=== PATIENT | female | born 1955 | race Caucasian/White ===

== ENCOUNTER 2016-11-17 06:25 | Inpatient (IN) | payer OTHER ==
[2016-11-16 11:35] VITALS: BMI 58.5
[~2016-11-17 06:25] MED LIST: BUPIVACAINE HCL/PF 0.5% (5MG/ML) 10 ML VIAL IJ ONE
[2016-11-17] MEDS ORDERED: MIDAZOLAM HCL 2 MG/2 ML SINGLE DOSE VIAL ONE (07:50)
[2016-11-17] MEDS ORDERED: PROPOFOL 20 ML ONE ×2 (07:50)
[2016-11-17] MEDS ORDERED: ROCURONIUM BROMIDE 50 MG/5 ML VIAL ONE ×2 (07:50→09:07)
[2016-11-17] MEDS ORDERED: BUPIVACAINE HCL/PF 0.5% (5MG/ML) 10 ML VIAL ONE (08:01)
[2016-11-17] MEDS ORDERED: DESFLURANE GAS 240 ML BOTTLE IH ONE (08:06)
[2016-11-17] MEDS ORDERED: LIDOCAINE HCL 2% (20ML MULTI-DOSE VIAL) NR ONE (08:06)
[2016-11-17] MEDS ORDERED: ceFAZolin SODIUM 1 GM VIAL IVPB ONE (08:40)
[2016-11-17] MEDS ORDERED: PHENYLEPHRINE HCL 10 MG/1 ML SINGLE DOSE VIAL ONE (09:23)
[2016-11-17] MEDS ORDERED: NEOSTIGMINE METHYLSULFATE 0.5 MG/ML - 10 ML MDV ONE (09:23)
[2016-11-17] MEDS ORDERED: ONDANSETRON 4 MG/2 ML VIAL IVPUSH PRN (09:46)
[2016-11-17] MEDS ORDERED: IBUPROFEN 800 MG/8 ML IJ IVPB PRN (09:46)
[2016-11-17] MEDS ORDERED: GLYCOPYRROLATE 0.2 MG/1 ML VIAL ONE (09:53)
[2016-11-17] MEDS ORDERED: LACTATED RINGERS SOLUTION 1,000 ML IV SCH (10:00)
[2016-11-17] MEDS ORDERED: BUPIVACAINE HCL/PF 0.5% (5MG/ML) 10 ML VIAL IJ ONE (10:03)
[2016-11-17] MEDS ORDERED: ONDANSETRON 4 MG/2 ML VIAL IVPB PRN (10:22)
[2016-11-17] MEDS ORDERED: METOCLOPRAMIDE HCL INJECTION 10 MG/2 ML VIAL IVPB PRN (10:25)
[2016-11-17] MEDS ORDERED: HYDROmorphone HCL CARPU-JECT 1 MG/1 ML DISP.SYRIN IVPB PRN (10:25)
[2016-11-17] MEDS ORDERED: SODIUM CHLORIDE 1,000 ML IV SCH ×2 (10:30→12:45)
[2016-11-17] MEDS ORDERED: HYDROmorphone HCL CARPU-JECT 2 MG/1 ML DISP.SYRIN ONE (10:52)
[2016-11-17] MEDS: HYDROmorphone HCL CARPU-JECT 1 MG/1 ML DISP.SYRIN IVPUSH PRN ×2 (10:52→11:02)
[2016-11-17 10:58] LABS: MCH 32.1 pg (25.7-33.7); MEAN CELL VOLUME 97.2 fl (80-96); MEAN PLT VOLUME 9.7 fl (7.5-11.1); PLATELET COUNT 163 K/MM3 (134-434); RDW 13.1 % (11.6-15.6); WHITE BLOOD COUNT 10.4 K/mm3 (4.0-10.0)
[2016-11-17] MEDS ORDERED: LABETALOL HCL 5 MG/1 ML (100MG/20 ML VIAL) IVPUSH ONE (11:28)
[2016-11-17 11:29] LABS: ALBUMIN 3.6 g/dl (3.4-5.0); ALK PHOS 78 U/L (45-117); ANION GAP 7 (8-16); BILIRUBIN,TOTAL 0.2 mg/dL (0.2-1.0); CALCIUM 8.6 mg/dL (8.5-10.1); CO2 28 mmol/L (21-32); CREATININE 1.4 mg/dL (0.55-1.02); GLUCOSE,RANDOM 146 mg/dL (74-106); SGOT/AST 22 U/L (15-37); SGPT/ALT 23 U/L (12-78); TOT PROT 7.2 g/dl (6.4-8.2)
[2016-11-17] MEDS: ACETAMINOPHEN 1000 MG/100 ML VIAL (NON FORMULARY) IVPB PRN ×2 (11:32→23:24)
--- NOTE | 2016-11-17 11:32 | OP ---
DATE OF OPERATION: 11/17/2016 PREOPERATIVE DIAGNOSES: 1. Morbid obesity. 2. Diabetes mellitus. 3. Hypertension. POSTOPERATIVE DIAGNOSES: 1. Morbid obesity. 2. Diabetes mellitus. 3. Hypertension. 4. Abdominal adhesions. PROCEDURE PERFORMED: 1. Laparoscopic vertical sleeve gastrectomy. 2. Laparoscopic lysis of adhesions. 3. Diagnostic laparoscopy. OPERATING SURGEON: Theodore Sterling M.D. BATTERY TECHNICIAN SURGEON: Dominguez Miller M.D. ANESTHESIA: General. OPERATIVE PROCEDURE: The patient was brought into the operating room, placed on the OR table in the supine position. All precautions were taken initially including padding for the back and the feet, and Venodyne boots were placed on both lower extremities. At that point the abdomen was prepped and draped in the usual manner. A Veress needle was placed in the left upper quadrant, and a pneumoperitoneum established. Number 12 bladeless trocar was placed in the left upper quadrant. Through that trocar, a laparoscopic camera was placed. Under direct vision, a number 15 bladeless trocar was placed in the midline in a supraumbilical position followed by a number 5 bladeless trocar in the right upper quadrant, and a number 5 bladeless trocar below the left costal margin. A Chris liver retractor was then placed in the epigastrium to retract left lobe of liver. Patient was then placed in 20-degree reverse Trendelenburg position. There were noted to be adhesions in the left upper quadrant up by the spleen between the omentum and the anterior abdominal wall. In order to provide visualization in this area to complete the sleeve, the adhesions were lysed. With the field technical assistant surgeon retracting the omentum inferiorly toward the patient's feet the operating surgeon used a LigaSure device to dissect the adhesions off the anterior abdominal wall. Once these were completed the left upper quadrant was now free of adhesions. The pylorus was noted on the distal stomach and 6 cm were measured proximally. Here on the greater curve the operating surgeon lifted the stomach toward the anterior abdominal wall as the field technical assistant surgeon retracted the gastrocolic ligament inferiorly. The LigaSure was now sued to dissect the vessels and the gastrocolic ligament off the greater curve of the stomach. This continued in a superior vertical direction until the final short gastric vessel between the proximal fundus and the superior pole of the spleen was divided. At this juncture anesthesia placed a No. 40 bougie. With the bougie held along the lesser curvature a series of bijal were performed with the 1st 2 bijal being black load bijal 6 cm in length along the bougie. This was followed by a series of purple load bijal along the bougie until the final staple was fired in the left upper quadrant and the greater curve was now completely detached from the lesser curve. It should be noted that prior to firing each staple both the anterior and posterior read were checked that they were equal and in the area of the esophagogastric junction approximately 1 to 1.5 cm serosa remained in the anterior and posterior surfaces. At this point saline placed along the staple line, anesthesia inserted air into the orogastric tube. The entire stomach was distended down to the pylorus, no obstruction, and no leaks were noted. At this point the bougie was removed by Anesthesia and the resected greater curve was removed thought the No. 15 trocar site and off the field as specimen. Under direct vision number 15 and 12 trocar sites were closed with endo closure device to prevent internal hernia and bleeding. Under direct visualization all trocars were removed and the pneumoperitoneum was released. All trocar sites then received 0.25% Marcaine and were closed with 4-0 Biosyn in subcuticular fashion. Dressings were applied. Patient awoken from anesthesia and transferred out of the operating room to recovery room in stable condition. ESTIMATED BLOOD LOSS: 30 mL. Ban [id number]
[2016-11-17] MEDS ORDERED: LABETALOL HCL 5 MG/1 ML (100MG/20 ML VIAL) IVPUSH PRN (11:52)
[2016-11-17] MEDS: ENOXAPARIN NA (PORCINE) 40 MG/0.4 ML DISP.SYRIN SQ SCH ×2 (14:34→21:06)
[2016-11-17] MEDS: FAMOTIDINE 20 MG/50 ML IVPB 50 ML IVPB SCH (21:06)
[2016-11-17] MEDS ORDERED: METOPROLOL TARTRATE 5 MG/5 ML VIAL ONE (23:10)
[2016-11-17] MEDS: METOPROLOL TARTRATE 5 MG/5 ML VIAL IVPB PRN (23:15)
[2016-11-17] MEDS ORDERED: DEXTROSE 5%-0.45% SALINE 1,000 ML IV SCH (23:30)
[2016-11-18] MEDS ORDERED: DEXTROSE 5%-0.45% SALINE 1,000 ML IV SCH (00:15)
[2016-11-18] MEDS ORDERED: PHENobarbital 30 MG TABLET PO SCH (00:17)
[2016-11-18] MEDS: PHENobarbital 30 MG TABLET PO SCH ×3 (00:41→21:53)
[2016-11-18] MEDS ORDERED: OXYCODONE/APAP 5/325MG COMBO TABLET PO PRN (06:41)
[2016-11-18 06:45] LABS: MCH 32.3 pg (25.7-33.7); MCHC 33.4 g/dl (32.0-36.0); MEAN CELL VOLUME 96.7 fl (80-96); MEAN PLT VOLUME 10.5 fl (7.5-11.1); PLATELET COUNT 143 K/MM3 (134-434); RDW 13.1 % (11.6-15.6); WHITE BLOOD COUNT 8.2 K/mm3 (4.0-10.0)
[2016-11-18] MEDS: diphenhydrAMINE HCL 25 MG CAPSULE (FP) PO PRN ×2 (06:45→21:52)
[2016-11-18] MEDS ORDERED: MEPERIDINE HCL 50 MG TABLET PO PRN (07:13)
[2016-11-18 07:21] LABS: ANION GAP 7 (8-16); BILIRUBIN,TOTAL 0.4 mg/dL (0.2-1.0); CALCIUM 7.8 mg/dL (8.5-10.1); CO2 27 mmol/L (21-32); CREATININE 1.4 mg/dL (0.55-1.02); GLUCOSE,RANDOM 154 mg/dL (74-106); SGOT/AST 21 U/L (15-37); SGPT/ALT 21 U/L (12-78); TOT PROT 6.5 g/dl (6.4-8.2)
[2016-11-18 07:22] LABS: ALK PHOS 71 U/L (45-117)
[2016-11-18] MEDS: METOPROLOL TARTRATE 5 MG/5 ML VIAL IVPB PRN (07:33)
[2016-11-18] MEDS ORDERED: amLODIPine BESYLATE 5 MG TABLET (FP) PO SCH (10:00)
--- NOTE | 2016-11-18 10:16 | PN ---
Progress Note (short form) - Note Progress Note: Anesthesiology Post-op POD#1 s/p laparoscopic gastric sleeve resection under GA. Pt. apparently with pruritis and erythema post-op presumed to be secondary to drug reaction. She is not SOB and while erythema is still present, treatment with Benadryl is helping. Otherwise, pain under control, VSS.
[2016-11-18] MEDS: ENOXAPARIN NA (PORCINE) 40 MG/0.4 ML DISP.SYRIN SQ SCH ×2 (10:28→21:52)
[2016-11-18] MEDS: FAMOTIDINE 20 MG/50 ML IVPB 50 ML IVPB SCH ×2 (10:28→21:52)
[2016-11-18] MEDS: METOPROLOL SUCCINATE 100 MG TAB.SR.24H (FP) PO SCH ×2 (10:28→21:52)
[2016-11-18] MEDS: LISINOPRIL 5 MG TABLET (FP) PO SCH (10:28)
[2016-11-18] MEDS ORDERED: amLODIPine BESYLATE 2.5 MG TABLET (FP) PO ONE (13:31)
--- NOTE | 2016-11-18 13:37 | CON.CARD ---
Consult Consult Specialty:: Cardiology Referred by:: Dr. Sterling Reason for Consultation:: HTN - History of Present Illness Chief Complaint: Elevated BP post op History of Present Illness: 61F HTN, HL, DM, cerebral aneurysm rupture 10 years ago complicated by prolonged hospitalization with ARF, temporary HD, seizures, CVA, chronic obesity now POD #1 gastric sleeve. Called to see for post op HTN: 180s/80s. She has received all of her usual BP meds. She is comfortable: denies headache, chest pain or SOB. Daughter at bedside, history obtained in Irish. Denies palpitations, lightheadedness or syncope. No dizziness. No neuro sx. She had been receiving Normal Saline, which was discontinued. 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: Yes: CVA, Seizure Cardio/Vascular: Yes: HTN, Hyperlipdemia ...: No Endocrine: Yes: Diabetes Mellitus, Other (obesity) Additional Medical History: cerebral aneursym rupture 10 years ago - Alcohol/Substance Use Hx Alcohol Use: No - Smoking History Smoking history: Never smoked Have you smoked in the past 12 months: No - Social History Usual Living Arrangement: With Child Home Medications - Allergies Allergies/Adverse Reactions: Allergies Allergy/AdvReac Type Severity Reaction Status Date / Time levetiracetam [From Keppra] Allergy Swelling Verified 11/16/16 11:35 morphine Allergy Itching Verified 11/17/16 07:18 hydromorphone HCl AdvReac Itching Verified 11/18/16 07:24 [From Dilaudid] - Home Medications Home Medications: Ambulatory Orders Amlodipine Besylate 5 mg PO DAILY 11/16/16 Glyburide 5 mg PO DAILY 11/16/16 Metoprolol Succinate [Toprol Xl] 100 mg PO BID 11/16/16 Atorvastatin Ca [Lipitor] 40 mg PO HS 11/17/16 Famotidine [Pepcid] 20 mg PO BID #60 tablet 11/17/16 Glipizide 5 mg PO DAILY 11/17/16 Lisinopril [Zestril] 5 mg PO DAILY 11/17/16 Phenobarbital 97.2 mg PO BID 11/17/16 Tramadol HCl 50 mg PO TID PRN #20 tablet MDD 4 11/17/16 Family Disease History - Family Disease History Family History: Unremarkable (non-contributory to this presentation) Review of Systems Findings/Remarks: 61F HTN, HL, DM, cerebral aneurysm rupture 10 years ago complicated by prolonged hospitalization with ARF, temporary HD, seizures, CVA, chronic obesity now POD #1 gastric sleeve. Called to see for post op HTN: 180s/80s. She has received all of her usual BP meds. She is comfortable: denies headache, chest pain or SOB. Daughter at bedside, history obtained in Irish. Denies palpitations, lightheadedness or syncope. No dizziness. No neuro sx. She had been receiving Normal Saline, which was discontinued. - Review of Systems Constitutional: reports: No Symptoms Eyes: reports: No Symptoms HENT: reports: No Symptoms Neck: reports: No Symptoms Cardiovascular: reports: No Symptoms Respiratory: reports: No Symptoms Gastrointestinal: reports: No Symptoms Genitourinary: reports: No Symptoms Breasts: reports: No Symptoms Reported Musculoskeletal: reports: No Symptoms Integumentary: reports: No Symptoms Neurological: reports: No Symptoms Endocrine: reports: No Symptoms Hematology/Lymphatic: reports: No Symptoms Psychiatric: reports: No Symptoms - Risk Factors Known Risk Factors: Yes: Diabetes Mellitus, Hypercholesterolemia, Hypertension Vital Signs: Vital Signs Temperature 99.7 F H 11/18/16 09:00 Pulse Rate 75 11/18/16 12:44 Respiratory Rate 16 11/18/16 12:44 Blood Pressure 180/85 11/18/16 12:44 O2 Sat by Pulse Oximetry (%) 97 11/18/16 10:00 Constitutional: Yes: Well Nourished, No Distress, Calm Eyes: Yes: Conjunctiva Clear, EOM Intact HENT: Yes: Atraumatic, Normocephalic Neck: Yes: Supple, Trachea Midline Respiratory: Yes: CTA Bilaterally Gastrointestinal: Yes: Soft, Abdomen, Obese Cardiovascular: Yes: Regular Rate and Rhythm JVD: No Carotid Bruit: No PMI: Non-Displaced Heart Sounds: Yes: S1, S2 (RRR, no murmurs) Edema: No Peripheral Pulses WNL: Yes Integumentary: Yes: WNL Neurological: Yes: Alert, Oriented ...Motor Strength: WNL Psychiatric: Yes: WNL, Alert - Other Data Labs, Other Data: CBC, BMP 11/18/16 05:35 11/18/16 06:00 Laboratory Tests 11/18/16 11/18/16 05:35 06:00 WBC 8.2 Hgb 13.0 Plt Count 143 Sodium 138 Potassium 4.3 BUN 26 H Creatinine 1.4 H Random Glucose 154 H Calcium 7.8 L AST 21 ALT 21 Alkaline Phosphatase 71 Total Protein 6.5 Albumin 3.0 L Echo: Report Reviewed, Other (Outside echo: trace MR, diastolic dysfx, otherwise normal EF) Stress Echo: Report Reviewed, Other (Persantine MIBI: 04/29--- no ischemia, soft tissue attenuation, EF 63%) Ejection Fraction %: LVEF > or = 40 % Imaging - Results Chest X-ray: Report Reviewed EKG: Image Reviewed (TELE: NSR with IVCD, RBBB (chronic)), Other (chronic RBBB) Problem List - Problems (1) Hypertension Code(s): I10 - ESSENTIAL (PRIMARY) HYPERTENSION Qualifiers: Hypertension type: essential hypertension Qualified Code(s): I10 - Essential (primary) hypertension (2) Morbid (severe) obesity due to excess calories Code(s): E66.01 - MORBID (SEVERE) OBESITY DUE TO EXCESS CALORIES (3) Diabetes Code(s): E11.9 - TYPE 2 DIABETES MELLITUS WITHOUT COMPLICATIONS Qualifiers: Diabetes mellitus type: type 2 Chronic kidney disease stage: stage 1 (4) Hyperlipidemia Code(s): E78.5 - HYPERLIPIDEMIA, UNSPECIFIED Qualifiers: Hyperlipidemia type: mixed hyperlipidemia Qualified Code(s): E78.2 - Mixed hyperlipidemia (5) Bariatric surgery status Code(s): Z98.84 - BARIATRIC SURGERY STATUS Assessment/Plan IMP: Chronic HTN, mild to moderately elevated post-op: possibly due to combined effect of mild post op pain and infusion of saline Asymptomatic History of DM, obesity and cerebral aneurysm rupture many years ago. REC: Agree with d/c IVF with careful monitoring of BP. Will give extra small dose of amlodipine x1 and observe BP trend. May need to up-titrate standing dose pending clinical response. Dr. uFentes will follow in AM.
--- NOTE | 2016-11-18 13:38 | PATH ---
Surgical Pathology Report Patient Name: SHNO REYES [facility]. Rec. #: [id number] /Age/Gender: 1955 (Age: 61) / F Account: [id number] Location: 4 PEDS/ADOL Taken: 11/17/2016 Received: 11/17/2016 Reported: 11/18/2016 Physicians: Theodore Sterling M.D. Specimen(s) Received GREATER CURVATURE OF STOMACH Clinical History Morbid obesity Final Diagnosis STOMACH, GREATER CURVATURE, LAPAROSCOPIC VERTICAL SLEEVE GASTRECTOMY: PORTION OF STOMACH WITH MILD CHRONIC GASTRITIS. IMMUNOSTAIN FOR H. PYLORI IS NEGATIVE FOR ORGANISMS. Electronically Signed Kwame Morrell M.D. Gross Description Received in formalin, labeled "greater curvature of stomach" is a 88 gram, 15.0 x 4.8 x 3.0 cm portion of stomach with a stapled margin of resection. The serosa is carbajal-knapp with minimal attached fat. The mucosa is carbajal-pink with focally flattened folds. No mucosal masses are identified. Medical Records Auditor sections are submitted in one cassette. /11/17/2016 [facility]11/17/2016
--- NOTE | 2016-11-18 16:44 | PN ---
Progress Note (short form) - Note Progress Note: POD#1 Cardiology consult appreciated Afebrile P-75-103 BP- 160-180/80-90 Pt migdalia po clear liquids-2 oz po tid Ambulating-oob ok UGI-no leak no obstruction WBC-8.2 (decreased from 10.4) H/H-/ P- cont ambulation, incentive spirometer cont DVT prophylaxis cont po clear liquids- 2 oz po TID
[2016-11-18] MEDS ORDERED: hydrALAZINE HCL 20 MG/ML VIAL IVPB PRN (19:02)
[2016-11-18] MEDS ORDERED: LISINOPRIL 5 MG TABLET (FP) PO ONE (19:15)
[2016-11-19] MEDS ORDERED: diphenhydrAMINE HCL 25 MG CAPSULE (FP) PO PRN (03:34)
--- NOTE | 2016-11-19 08:05 | PN ---
Progress Note, Physician History of Present Illness: [facility]. no overnight events. no new complaints. mild abdominal discomfort. - Current Medication List Current Medications: Active Medications Amlodipine Besylate (Norvasc -) 5 mg PO DAILY [facility] Last Admin: 11/18/16 10:28 Dose: 5 mg Diphenhydramine HCl (Benadryl -) 25 mg PO Q6H PRN PRN Reason: Itchiness Enoxaparin Sodium (Lovenox -) 40 mg SQ BID [facility] Last Admin: 11/18/16 21:52 Dose: 40 mg Hydralazine HCl (Apresoline Injection -) 10 mg IVPB Q4H PRN PRN Reason: FOR SBP > 170 Last Admin: 11/19/16 06:18 Dose: 10 mg Famotidine/Sodium Chloride (Pepcid 20 Mg Premixed Ivpb -) 50 mls @ 100 mls/hr IVPB BID [facility] Last Admin: 11/18/16 21:52 Dose: 100 mls/hr Ibuprofen (Caldolor Injection -) 800 mg IVPB Q6H PRN PRN Reason: PAIN Last Admin: 11/17/16 11:45 Dose: 800 mg Lisinopril (Prinivil) 5 mg PO DAILY [facility] Last Admin: 11/18/16 10:28 Dose: 5 mg Meperidine HCl (Demerol -) 25 mg PO Q4H PRN PRN Reason: PAIN Metoclopramide HCl (Reglan Injection -) 10 mg IVPB Q6H PRN PRN Reason: NAUSEA AND/OR VOMITING Last Admin: 11/17/16 22:00 Dose: 10 mg Metoprolol Succinate (Toprol Xl -) 100 mg PO BID [facility] Last Admin: 11/18/16 21:52 Dose: 100 mg Ondansetron HCl (Zofran Injection) 4 mg IVPB Q4H PRN PRN Reason: NAUSEA AND/OR VOMITING Phenobarbital (Phenobarbital -) 90 mg PO BID [facility] Last Admin: 11/18/16 21:53 Dose: 90 mg - Objective Vital Signs: Vital Signs Temperature 98.7 F 11/19/16 06:00 Pulse Rate 93 H 11/19/16 06:00 Respiratory Rate 20 11/19/16 06:00 Blood Pressure 175/80 11/19/16 06:00 O2 Sat by Pulse Oximetry (%) 95 11/18/16 21:00 Constitutional: Yes: No Distress, Calm, Obese Eyes: Yes: Conjunctiva Clear, EOM Intact, PERRL HENT: Yes: Atraumatic, Normocephalic Neck: Yes: Supple, Trachea Midline Cardiovascular: Yes: Regular Rate and Rhythm, Murmur, S1, S2. No: Bradycardia, Tachycardia, Pulse Irregular, Bruit, JVD, Gallop, Rub, S3, S4, Varicosities Respiratory: Yes: Regular, CTA Bilaterally. No: Rales, Rhonchi, Wheezes Gastrointestinal: Yes: Normal Bowel Sounds, Soft, Tenderness. No: Distention Musculoskeletal: Yes: WNL Extremities: Yes: WNL Edema: No Peripheral Pulses WNL: Yes Peripheral Pulses: Left Doralis Pedis: 2+, Right Dorsalis Pedis: 2+ Integumentary: Yes: WNL Neurological: Yes: Alert, Oriented, Cran Nerves II-XII Intact Psychiatric: Yes: Alert, Oriented Labs: CBC, BMP 11/18/16 05:35 11/18/16 06:00 - ....Imaging Chest X-ray: Report Reviewed, Image Reviewed EKG: Report Reviewed, Image Reviewed Other: Report Reviewed, Image Reviewed (tele-nsr, sinus tach, no sig arrhythmias recorded) Assessment/Plan 60 year old woman with the history of hypertension, hyperlipidemia, diabetes type II, cerebral aneurysm with rupture 10 years ago with prolonged hospital stay, complicated by acute renal failure and temporary hemodialysis followed by seizures, mild CVA, and obesity now post op from bariatric surgery which she tolerated well but with mild to moderately uncontrolled HTN post op. Perioperative cardiac risk assessment -pt tolerated procedure well from a cardiac standpoint -no additional inpatient cardiac work up needed Outpatient preop work up in the office included: Echo 04/15/16-normal LV and RV function, mild MR Carotid doppler 04/15/16-mild plaque, no stenosis Nuclear stress test 04/15/16-no ischemia, normal LVEF HTN-above goal, was slightly above retirement goal on preop outpatient visit but adequate prior to surgery here, now likely exacerbated by post op discomfort and IVF, with h/o ruptured cerebral aneursym HTN control is essential -pt required 1 dose of IV Hydralazine overnight for SBP >170, this am BP improved but still above goal -cont metoprolol 100mg bid -change amlodipine to nifedipine er 60mg daily and uptitrate as needed -ideally would uptitrate Lisinopril (given h/o DMII) and possibly add HCTZ but due to elevated creatinine will wait to confirm baseline creat, this can be done as outpatient -re-evaluate BP this am after meds, if adequately controlled, pt would be acceptable for discharge from a cardiac standpoint with a plan for close outpatient follow up this week DMII -outpatient f/up with PMD Cerebral aneursym with rupture -outpatient f/up with PMD
[2016-11-19] MEDS: FAMOTIDINE 20 MG/50 ML IVPB 50 ML IVPB SCH (09:14)
[2016-11-19] MEDS: PHENobarbital 30 MG TABLET PO SCH (09:14)
[2016-11-19] MEDS: LISINOPRIL 5 MG TABLET (FP) PO SCH (09:14)
[2016-11-19] MEDS: ENOXAPARIN NA (PORCINE) 40 MG/0.4 ML DISP.SYRIN SQ SCH (09:14)
[2016-11-19] MEDS: METOPROLOL SUCCINATE 100 MG TAB.SR.24H (FP) PO SCH (09:14)
[2016-11-19] MEDS ORDERED: NIFEdipine E.R 60 MG TABLET (UD) PO SCH (10:00)
[2016-11-19 11:36] VITALS: BP 153/76; PULSE 94; TEMP 99.8
--- NOTE | 2016-11-19 12:49 | PN ---
Progress Note (short form) - Note Progress Note: Afebrile today T(max)- 100.1 degrees P-94 BP-153/76 (stable since 8 AM; decreased from previously) Pt doing well Tolerating PO clear liquids- 2 oz po TID P/E- Abd- well-healed incisions soft, non-tender on palpation Cardiology note appreciated- Discussed with Dr Fuentes BP now better controlled and OK for D/C Dr Fuentes will e-prescribe Nifedipine to pharmacy Discussed post-op instructions with daughter via face-time with patient Pt to F/U with Cardiology on 11/21 or 11/22 Pt to F/U with Bariatrics on 11/24 P- PO clear liquids- 3 OZ PO 4-5 times per day Pt can have 1 cup of water Q 1-2 H F/U with Card 11/21 or 11/22 F/U with Bariatric 11/24 D/C pt home today
== END 2016-11-19 14:32 | disposition home or self-care (01) | DRG 403 ==
LOC: JSAMEDAYSX 06:25 → EDSTATUS 08:00 → J4S 12:59
PROVIDERS: ADMIT Surgery; ATTEND Surgery
PROC: 0JN83ZZ Release Abdomen Subcutaneous Tissue and Fascia, Percutaneous Approach (ICD-10-PCS; 2016-11-17)
PROC: 0DB64Z3 Excision of Stomach, Percutaneous Endoscopic Approach, Vertical (ICD-10-PCS; principal; 2016-11-17 08:00)
DX: E66.01 Morbid (severe) obesity due to excess calories (principal); Z68.43 Body mass index [BMI] 50.0-59.9, adult; K66.0 Peritoneal adhesions (postprocedural) (postinfection); I10 Essential (primary) hypertension; E11.9 Type 2 diabetes mellitus without complications; E78.5 Hyperlipidemia, unspecified; K29.50 Unspecified chronic gastritis without bleeding; I97.3 Postprocedural hypertension; L29.9 Pruritus, unspecified
CPT/HCPCS: 36415; 74241-TC; 80053; 85027; 86850; 86900; 86901; 88305-TC; 94760; 97116-GP; 97162-GP

== ENCOUNTER 2017-09-17 19:09 | Inpatient (IN) | payer OTHER ==
--- NOTE | 2017-09-17 19:55 | PDOC ---
History of Present Illness - General Chief Complaint: Nausea/Vomiting Stated Complaint: NAUSEA/VOMITTING Time Seen by Provider: 09/17/17 19:54 - History of Present Illness Initial Comments: 61F HTN, HL, DM, urinary incontinence, cerebral aneurysm rupture 10 years ago complicated by prolonged hospitalization with ARF, temporary HD, seizures, CVA, and severe obesity (10 months s/p gastric sleeve) presenting with 5 episodes of non-bloody, bilious nausea/ vomiting and lightheadedness. States she ate a slice of pizza and drank some coffee a few hours before the nausea/ vomiting. Passing gas today, had a small soft bowel movement yesterday. Denies fevers, chills, abdominal pain. 09/17/17 20:03 Past History - Past Medical History Allergies/Adverse Reactions: Allergies Allergy/AdvReac Type Severity Reaction Status Date / Time levetiracetam [From Keppra] Allergy Swelling Verified 09/17/17 19:53 morphine Allergy Itching Verified 09/17/17 19:53 hydromorphone HCl AdvReac Itching Verified 09/17/17 19:53 [From Dilaudid] Home Medications: Ambulatory Orders Amlodipine Besylate 5 mg PO DAILY 11/16/16 Metoprolol Succinate [Toprol Xl] 100 mg PO BID 11/16/16 Atorvastatin Ca [Lipitor] 40 mg PO HS 11/17/16 Famotidine [Pepcid] 20 mg PO BID #60 tablet 11/17/16 Glipizide 5 mg PO DAILY 11/17/16 Lisinopril [Zestril] 5 mg PO DAILY 11/17/16 Phenobarbital 97.2 mg PO BID 11/17/16 Gabapentin [Neurontin -] 300 mg PO Q8H 09/17/17 Anemia: No Asthma: Yes Cancer: No Cardiac Disorders: No CVA: No COPD: No CHF: No Dementia: No Diabetes: Yes GI Disorders: No Disorders: No HTN: Yes Hypercholesterolemia: No Liver Disease: No Seizures: Yes Thyroid Disease: No - Surgical History Abdominal Surgery: No Cardiac Surgery: No Cholecystectomy: Yes Lung Surgery: No Neurologic Surgery: No Orthopedic Surgery: No - Suicide/Smoking/Psychosocial Hx Smoking History: Never smoked Have you smoked in the past 12 months: No Information on smoking cessation initiated: No Hx Alcohol Use: No Drug/Substance Use Hx: No Substance Use Type: None Hx Substance Use Treatment: No Review of Systems - Review of Systems Constitutional: Yes: Loss of Appetite. No: Chills, Diaphoresis, Fever HEENTM: No: Blurred Vision, Tearing Respiratory: No: Cough, Orthopnea, Shortness of Breath Cardiac (ROS): No: Chest Pain, Edema, Irregular Heart Rate ABD/GI: Yes: Nausea, Poor Appetite, Vomiting : No: Dysuria, Discharge, Frequency Musculoskeletal: No: Back Pain, Muscle Weakness Integumentary: No: Bruising, Lesions, Lumps Neurological: No: Headache, Numbness, Paresthesia, Tingling *Physical Exam - Vital Signs Last Vital Signs Temp Pulse Resp BP Pulse Ox 96.1 F L 65 16 141/98 96 09/17/17 19:46 09/17/17 19:46 09/17/17 19:46 09/17/17 19:46 09/17/17 19:46 - Physical Exam General Appearance: Yes: Nourished, Appropriately Dressed. No: Apparent Distress HEENT: positive: EOMI, GUILLERMO, Normal ENT Inspection, Normal Voice Neck: positive: Trachea midline, Normal Thyroid, Supple. negative: Tender, Rigid Respiratory/Chest: positive: Lungs Clear, Normal Breath Sounds. negative: Chest Tender, Respiratory Distress, Accessory Muscle Use Cardiovascular: positive: Regular Rhythm, Regular Rate Gastrointestinal/Abdominal: positive: Increased Bowel Sounds Musculoskeletal: negative: Normal Inspection (globally weak), Decreased Range of Motion Extremity: positive: Normal Capillary Refill, Normal Inspection, Normal Range of Motion. negative: Tender Integumentary: positive: Normal Color, Dry, Warm Neurologic: positive: Fully Oriented, Alert (alert but occasionally tunes out of conversation), Normal Mood/Affect, Normal Response, Motor Strength 5/5 Heart Score/ECG Review - History History: Highly suspicious - Electrocardiogram EKG: Non specific repolarization disturbance - Age Age: 45-65 - Risk Factors Risk Factors Heart Score: Yes Hx Hypertension, Yes Hx Diabetes, Yes Hx Obesity Based on the list above the patient has:: >/=3 risk factors or Hx atherosclerotic disease - Troponin Troponin: </= normal limit - Score Heart Score - Total: 6 ED Treatment Course - LABORATORY CBC & Chemistry Diagram: 09/17/17 21:00 09/17/17 21:00 Medical Decision Making - Medical Decision Making 62 year old female with multiple cardiac risk factors presenting with nausea, vomiting, and abdominal discomfort of sudden onset. Given two IV Zofran without relief of her symptoms. CK and Alk phos slightly elevated with a normal RUQ US. Unclear source for N/V but patient's cardiac risk factors. female sex, and diabetes put her at risk for atypical cardiac presentations. Will admit patient for cardiac tele obs and eval by Dr. Miller. 09/18/17 01:25 *DC/Admit/Observation/Transfer Diagnosis at time of Disposition: Anginal equivalent - Discharge Dispostion Condition at time of disposition: Stable Admit: Yes - Referrals Referrals: José Oliver MD [Primary Care Provider] - - Patient Instructions - Post Discharge Activity
--- NOTE | 2017-09-17 20:43 | PDOC ---
Attending Attestation - Resident Resident Name: Grace Khalil - ED Attending Attestation I have performed the following: I have examined & evaluated the patient, The case was reviewed & discussed with the resident, I agree w/resident's findings & plan - HPI HPI: 09/17/17 20:43 Pt comes with abd pain, nausea and vomiting. States that she ate pizza today. SHe usually eats rice and chicken and veggies at home. Pt has no fever and no point tenderness in her abd. Just general nausea and vomiting. She has a hx of GB removal and gastric sleeve. She has DM and HTN. SHe is overweight. Pt appears pale and weak. She has a hx of a CVA in the past. SHe cannot tell us much about it. 09/17/17 22:39 Labs are normal. Alk phos is elevated. Pt will have a sono. We will also add on a cardiac enzyme on the patient. - Physicial Exam PE: 09/17/17 20:43 Agree with resident exam - Medical Decision Making 09/18/17 00:30 Pt has normal labs and normal UA. She is acetone negative. She appears weak and pale. She is awaiting sonogram of the RUQ, as she has elevated alk phos. Pt hada cholecystectomy 3 yrs ago and she may have choledocholithiasis. 09/18/17 01:02 Referring Physician: NEERU HEATON Patient Name: ANTONIO BATRES THIS IS A PRELIMINARY REPORT FROM [facility] DATE OF SERVICE: 2017-09-18 00:14:25 IMAGES: 35 EXAM: ULTRASOUND ABDOMEN INCOMPLETE Cholecystectomy. Unremarkable liver, right kidney and visualized aorta and pancreas. Normal common duct diameter, 7 mm. THIS DOCUMENT HAS BEEN ELECTRONICALLY SIGNED 09/18/17 02:04 Pt will be admitted to telemetry observation for serial cardiac marker observation
[2017-09-17] MEDS ORDERED: SODIUM CHLORIDE 0.9% 500 ML INFUS.BAG IV ONE (20:46)
[2017-09-17] MEDS ORDERED: ONDANSETRON 4 MG/2 ML VIAL IVPUSH ONE (20:46)
[2017-09-17] MEDS ORDERED: ONDANSETRON 4 MG/2 ML VIAL ONE (21:12)
[2017-09-17 21:31] LABS: BASO % 0.5 % (0-2.0); HEMATOCRIT 34.9 % (32.4-45.2); HEMOGLOBIN 11.5 GM/dL (10.7-15.3); LYMPH % 30.8 % (8-40); MCH 24.7 pg (25.7-33.7); MCHC 32.9 g/dl (32.0-36.0); MEAN PLT VOLUME 8.2 fl (7.5-11.1); MONO % 9.4 % (3.8-10.2); NEUT % 57.3 % (42.8-82.8); PLATELET COUNT 327 K/MM3 (134-434); RBC 4.66 M/mm3 (3.60-5.2); RDW 14.9 % (11.6-15.6); WHITE BLOOD COUNT 9.6 K/mm3 (4.0-10.0)
[2017-09-17 21:59] LABS: ALBUMIN 3.4 g/dl (3.4-5.0); ALK PHOS 259 U/L (45-117); ANION GAP 6 (8-16); BILIRUBIN,DIRECT < 0.2 mg/dL (0.0-0.2); BILIRUBIN,TOTAL 0.3 mg/dL (0.2-1.0); BLOOD UREA NITROGEN 8 mg/dL (7-18); CALCIUM 8.6 mg/dL (8.5-10.1); CHLORIDE 109 mmol/L (98-107); CO2 26 mmol/L (21-32); CREATININE 0.6 mg/dL (0.55-1.02); GLUCOSE,RANDOM 89 mg/dL (74-106); LIPASE 84 U/L (73-393); SGOT/AST 15 U/L (15-37); SGPT/ALT 23 U/L (12-78); SODIUM 141 mmol/L (136-145); TOT PROT 6.8 g/dl (6.4-8.2)
[2017-09-17 23:04] LABS: URINE APPEARANCE CLEAR; URINE BILIRUBIN NEGATIVE (<2.0 mg/dL); URINE COLOR COLORLESS; URINE GLUCOSE (UA) 1+ (NEGATIVE); URINE KETONE NEGATIVE (NEGATIVE); URINE LEUK ESTERASE NEGATIVE (NEGATIVE); URINE NITRITE NEGATIVE (NEGATIVE); URINE UROBILINOGEN NEGATIVE mg/dL (0.2-1.0)
[2017-09-17 23:08] LABS: URINE PROTEIN 2+ (NEGATIVE)
[2017-09-17 23:09] LABS: URINE MUCUS RARE
[2017-09-18] MEDS ORDERED: SODIUM CHLORIDE 0.9% 500 ML INFUS.BAG IV ONE (01:12)
[2017-09-18] MEDS ORDERED: ONDANSETRON 4 MG/2 ML VIAL IVPUSH ONE (01:12)
[2017-09-18] MEDS ORDERED: ONDANSETRON 4 MG/2 ML VIAL ONE (01:14)
[2017-09-18] MEDS ORDERED: ASPIRIN 81 MG CHEWABLE TABLETS PO ONE (01:15)
[2017-09-18] MEDS ORDERED: ASPIRIN 81 MG CHEWABLE TABLETS ONE (01:16)
--- NOTE | 2017-09-18 01:32 | PN ---
Teaching Attending Note Name of Resident: Tawnya Fuller ATTENDING PHYSICIAN STATEMENT I saw and evaluated the patient. I reviewed the resident's note and discussed the case with the resident. I agree with the resident's findings and plan as documented. SUBJECTIVE: 62 yo DM, HTN, morbid obesity, GB removal, gastric sleeve, who presents with nausea and vomiting after pizza. No chest pain or pressure. No shortness of breath. States she has No abdominal pain and nausea/vomiting has completely resolved. Denies any current dizziness, headache, or visual changes. No chest pain or pressure. No fevers or chills. OBJECTIVE: Physical: VS: Vital Signs Period Temp Pulse Resp BP Sys/Smith Pulse Ox Last 24 Hr 96.1 F 65 16 141/98 96 GEN: NAD, Resting in bed, AA0X3 HEENT: NCAT, PERRL, Throat without erythema or exudates CARD: RRR S1, S2 RESP: CTAB ABD: BSX4,NTD to palpation EXT: - C/C/E Neuro: CN II-XII intact, Motor MS +5/5 Bilateral UE/LE CBCD WBC 9.6 K/mm3 (4.0-10.0) 09/17/17 21:00 RBC 4.66 M/mm3 (3.60-5.2) 09/17/17 21:00 Hgb 11.5 GM/dL (10.7-15.3) D 09/17/17 21:00 Hct 34.9 % (32.4-45.2) 09/17/17 21:00 MCV 75.0 fl (80-96) L 09/17/17 21:00 MCHC 32.9 g/dl (32.0-36.0) 09/17/17 21:00 RDW 14.9 % (11.6-15.6) D 09/17/17 21:00 Plt Count 327 K/MM3 (134-434) D 09/17/17 21:00 MPV 8.2 fl (7.5-11.1) D 09/17/17 21:00 CMP Sodium 141 mmol/L (136-145) 09/17/17 21:00 Potassium 4.0 mmol/L (3.5-5.1) 09/17/17 21:00 Chloride 109 mmol/L (98-107) H 09/17/17 21:00 Carbon Dioxide 26 mmol/L (21-32) 09/17/17 21:00 Anion Gap 6 (8-16) L 09/17/17 21:00 BUN 8 mg/dL (7-18) 09/17/17 21:00 Creatinine 0.6 mg/dL (0.55-1.02) 09/17/17 21:00 Creat Clearance w eGFR > 60 (>60) 09/17/17 21:00 Random Glucose 89 mg/dL (74-106) 09/17/17 21:00 Calcium 8.6 mg/dL (8.5-10.1) 09/17/17 21:00 Total Bilirubin 0.3 mg/dL (0.2-1.0) D 09/17/17 21:00 AST 15 U/L (15-37) 09/17/17 21:00 ALT 23 U/L (12-78) 09/17/17 21:00 Alkaline Phosphatase 259 U/L (45-117) H 09/17/17 21:00 Total Protein 6.8 g/dl (6.4-8.2) 09/17/17 21:00 Albumin 3.4 g/dl (3.4-5.0) 09/17/17 21:00 CARDIAC ENZYMES Creatine Kinase 321 IU/L (26-192) H 09/17/17 22:35 Troponin I < 0.02 ng/ml (0.00-0.05) 09/17/17 22:35 Home Medications Medication Instructions Recorded Amlodipine Besylate 5 mg PO DAILY 11/16/16 Metoprolol Succinate [Toprol Xl] 100 mg PO BID 11/16/16 Atorvastatin Ca [Lipitor] 40 mg PO HS 11/17/16 Famotidine [Pepcid] 20 mg PO BID #60 tablet 11/17/16 Glipizide 5 mg PO DAILY 11/17/16 Lisinopril [Zestril] 5 mg PO DAILY 11/17/16 Phenobarbital 97.2 mg PO BID 11/17/16 Gabapentin [Neurontin -] 300 mg PO Q8H 09/17/17 Ambulatory Orders Amlodipine Besylate 5 mg PO DAILY 11/16/16 Metoprolol Succinate [Toprol Xl] 100 mg PO BID 11/16/16 Atorvastatin Ca [Lipitor] 40 mg PO HS 11/17/16 Famotidine [Pepcid] 20 mg PO BID #60 tablet 11/17/16 Glipizide 5 mg PO DAILY 11/17/16 Lisinopril [Zestril] 5 mg PO DAILY 11/17/16 Phenobarbital 97.2 mg PO BID 11/17/16 Gabapentin [Neurontin -] 300 mg PO Q8H 09/17/17 CXR: PENDING EKG: NSR, RBBB, TWI inferior leads, QtC 534 ABD US: Negative for acute process HEART 3 ASSESSMENT AND PLAN: 62 yo DM, HTN, morbid obesity, GB removal, gastric sleeve, who presents with nausea and vomiting, being admitted for atypical chest pain 1.) Atypical Chest Pain/Nausea - Trend Trop/EKG - Avoid Zofran/Reglan due to prolonged QtC - Nausea/Vomiting resolved- Tolerating PO 2.) Prolonged QtC - Electrolytes - Keep Mg2+>2, K >4.0 - Avoid Qt Prolonging agents/meds 3.) HTN - C/W Home meds (Amlodipine, BB, Macario) 4.) Hx. of Cerebral Aneurysm Rupture - Denies any headache/visual changes - Monitor - C/W Home Meds - C/W BP meds 5.) Dvt PPx - SCDs Place in Obs-Tele
--- NOTE | 2017-09-18 02:33 | HP ---
CHIEF COMPLAINT: nausea and dizziness HISTORY OF PRESENT ILLNESS: Patient is a 62 yo F with a PMHx of HTn, HLD, CVA, Seizures, s/p cholecystectomy, s/p gastric sleeve, presents with dizziness and nausea/vomiting that started at 5pm yesterday. Patient said she ate Pizza earlier that day. She said she vomited 3 times and couldn't describe the vomit. Patient denies chest pain, abdominal pain, chest pain, sob, loc, vision loss, dysuria, headaches. ER course was notable for: (1) EKG: NSR, RBBB, TWI inferior leads, QtC 534 (2) ABD US: Negative for acute process, Alk Phos: 259 (3) QTC 534 Recent Travel: denies PAST MEDICAL HISTORY: HTN, HL, DM, urinary incontinence, cerebral aneurysm rupture 10 years ago complicated by prolonged hospitalization with ARF, temporary HD, seizures, CVA, and severe obesity (10 months s/p gastric sleeve) Social History: Smoking: denies Alcohol: denies Drugs: denies Family History: Allergies levetiracetam [From Keppra] Allergy (Verified 09/17/17 19:53) Swelling morphine Allergy (Verified 09/17/17 19:53) Itching severe itching s/p several sx for 2-3 days hydromorphone HCl [From Dilaudid] Adverse Reaction (Verified 09/17/17 19:53) Itching 11/18/16 SUSPECTED ADR TO DILAUDID. RX: MILD: ERYTHEMA AND ITCHING HOME MEDICATIONS: Home Medications Medication Instructions Recorded Amlodipine Besylate 5 mg PO DAILY 11/16/16 Metoprolol Succinate [Toprol Xl] 100 mg PO BID 11/16/16 Atorvastatin Ca [Lipitor] 40 mg PO HS 11/17/16 Famotidine [Pepcid] 20 mg PO BID #60 tablet 11/17/16 Glipizide 5 mg PO DAILY 11/17/16 Lisinopril [Zestril] 5 mg PO DAILY 11/17/16 Phenobarbital 97.2 mg PO BID 11/17/16 Gabapentin [Neurontin -] 300 mg PO Q8H 09/17/17 REVIEW OF SYSTEMS CONSTITUTIONAL: Absent: fever, chills, diaphoresis, generalized weakness, malaise, loss of appetite, weight change HEENT: Absent: rhinorrhea, nasal congestion, throat pain, throat swelling, difficulty swallowing, mouth swelling, ear pain, eye pain, visual changes CARDIOVASCULAR: Absent: chest pain, syncope, palpitations, irregular heart rate, lightheadedness , peripheral edema RESPIRATORY: Absent: cough, shortness of breath, dyspnea with exertion, orthopnea, wheezing, stridor, hemoptysis GASTROINTESTINAL: nausea, vomiting Absent: abdominal pain, abdominal distension, diarrhea, constipation, melena, hematochezia GENITOURINARY: Absent: dysuria, frequency, urgency, hesitancy, hematuria, flank pain, genital pain ENDOCRINE: Absent: unexplained weight gain, unexplained weight loss, heat intolerance, cold intolerance NEUROLOGIC: Absent: headache, focal weakness or paresthesias, dizziness, unsteady gait, seizure, mental status changes, bladder or bowel incontinence PHYSICAL EXAMINATION Vital Signs - 24 hr 09/17/17 19:46 Temperature 96.1 F L Pulse Rate 65 Respiratory 16 Rate Blood Pressure 141/98 O2 Sat by Pulse 96 Oximetry (%) GENERAL: a/o x 3, comfortable, nad EYES: Pupils equal, round and reactive to light, extraocular movements intact, sclera anicteric, conjunctiva clear. EARS, NOSE, THROAT: oropharynx clear without exudates. Moist mucous membranes. NECK:supple without lymphadenopathy, JVD, or masses. LUNGS: Breath sounds equal, clear to auscultation bilaterally. No wheezes, and no crackles. HEART: Regular rate and rhythm, normal S1 and S2 without murmur, rub or gallop. ABDOMEN: obese, Soft, nontender, not distended, normoactive bowel sounds, no guarding, no rebound, no masses. UPPER EXTREMITIES: 2+ pulses, warm, well-perfused. No cyanosis. No clubbing. No peripheral edema. LOWER EXTREMITIES: 2+ pulses, warm, well-perfused. No calf tenderness. No peripheral edema. NEUROLOGICAL: Cranial nerves II-XII intact. Normal speech. Laboratory Results - last 24 hr 09/17/17 09/17/17 09/17/17 21:00 21:00 21:30 WBC 9.6 RBC 4.66 Hgb 11.5 D Hct 34.9 MCV 75.0 L MCH 24.7 L MCHC 32.9 RDW 14.9 D Plt Count 327 D MPV 8.2 D Neutrophils % 57.3 Lymphocytes % 30.8 Monocytes % 9.4 Eosinophils % 2.0 Basophils % 0.5 Sodium 141 Potassium 4.0 Chloride 109 H Carbon Dioxide 26 Anion Gap 6 L BUN 8 Creatinine 0.6 Creat Clearance w eGFR > 60 Random Glucose 89 Calcium 8.6 Total Bilirubin 0.3 D Direct Bilirubin < 0.2 AST 15 ALT 23 Alkaline Phosphatase 259 H Creatine Kinase Creatine Kinase Index CK-MB (CK-2) Troponin I Total Protein 6.8 Albumin 3.4 Lipase 84 Urine Color Urine Appearance Urine pH Ur Specific [place] Urine Protein Urine Glucose (UA) Urine Ketones Urine Blood Urine Nitrite Urine Bilirubin Urine Urobilinogen Ur Leukocyte Esterase Urine WBC (Auto) Urine RBC (Auto) Urine Mucus Acetone, Qual Negative L 09/17/17 09/17/17 22:35 22:45 WBC RBC Hgb Hct MCV MCH MCHC RDW Plt Count MPV Neutrophils % Lymphocytes % Monocytes % Eosinophils % Basophils % Sodium Potassium Chloride Carbon Dioxide Anion Gap BUN Creatinine Creat Clearance w eGFR Random Glucose Calcium Total Bilirubin Direct Bilirubin AST ALT Alkaline Phosphatase Creatine Kinase 321 H Creatine Kinase Index 2.3 CK-MB (CK-2) 7.456 H Troponin I < 0.02 Total Protein Albumin Lipase Urine Color Colorless Urine Appearance Clear Urine pH 8.0 Ur Specific [place] 1.006 Urine Protein 2+ H Urine Glucose (UA) 1+ H Urine Ketones Negative Urine Blood 1+ H Urine Nitrite Negative Urine Bilirubin Negative Urine Urobilinogen Negative Ur Leukocyte Esterase Negative Urine WBC (Auto) <1 Urine RBC (Auto) 1 Urine Mucus Rare Acetone, Qual ASSESSMENT/PLAN: 62 yo F with a PMHx of HTn, HLD, CVA, Seizures, s/p cholecystectomy, s/p gastric sleeve, presents with dizziness and nausea/vomiting #Atypical Chest pain/Nausea -Tele -Trend Trop, 1st set neg -Nausea/vomiting resolved -Order anti-nausea if needed -Avoid zofran, prolonged qtc #HTN -cont. home meds -Amlodipine 5mg -Toprol 100mg BID -Lisinopril 5mg #Prolonged QtC -follow CMP -Keep Mg > 2, K>4 -Avoid Otc prolonging meds #DM -BGM -ISS -Hold Glipizide #DVT ppx -SCDs Obs-Tele Visit type - Emergency Visit Emergency Visit: Yes ED Registration Date: 09/18/17 Care time: The patient presented to the Emergency Department on the above date and was hospitalized for further evaluation of their emergent condition. - New Patient This patient is new to me today: Yes Date on this admission: 09/19/17 - Critical Care Critical Care patient: No Hospitalist Screening - Colonoscopy Questionnaire Colonoscopy Questionnaire: Colonoscopy Questionnaire - Patient: 50 - 75 years old and never had a screening colonoscopy: Unknown History of colon or rectal polyps, or CA: Unknown History of IBD, Crohn's disease or UC: Unknown History of abdominal radiation therapy as a child: Unknown - Relative: 1 with colon or rectal CA, or polyps at age 60 or younger: Unknown Colon or rectal CA diagnosed at age 45 or younger: Unknown Multiple relatives with colon or rectal CA: Unknown - Outcome: Screening Result: Negative Screen
[2017-09-18] MEDS ORDERED: GABAPENTIN 100 MG CAPSULE (FP) ONE (06:03)
[2017-09-18] MEDS: GABAPENTIN 300 MG CAPSULE (FP) PO SCH ×3 (06:08→21:12)
[2017-09-18 06:14] LABS: HEMATOCRIT 38.4 % (32.4-45.2); HEMOGLOBIN 12.9 GM/dL (10.7-15.3); MCH 32.4 pg (25.7-33.7); MCHC 33.5 g/dl (32.0-36.0); MEAN CELL VOLUME 96.7 fl (80-96); MEAN PLT VOLUME 10.5 fl (7.5-11.1); PLATELET COUNT 179 K/MM3 (134-434); RBC 3.97 M/mm3 (3.60-5.2)
[2017-09-18 06:40] LABS: ALBUMIN 3.8 g/dl (3.4-5.0); ANION GAP 7 (8-16); BILIRUBIN,TOTAL 0.2 mg/dL (0.2-1.0); BLOOD UREA NITROGEN 20 mg/dL (7-18); CALCIUM 8.5 mg/dL (8.5-10.1); CHLORIDE 105 mmol/L (98-107); CO2 28 mmol/L (21-32); CREATININE 1.2 mg/dL (0.55-1.02); GLUCOSE,RANDOM 158 mg/dL (74-106); MAGNESIUM 1.9 mg/dL (1.8-2.4); PHOSPHOROUS 3.7 mg/dL (2.5-4.9); POTASSIUM 4.5 mmol/L (3.5-5.1); SGOT/AST 16 U/L (15-37); SGPT/ALT 14 U/L (12-78); SODIUM 140 mmol/L (136-145)
[2017-09-18 06:43] LABS: ALK PHOS 83 U/L (45-117)
[2017-09-18] MEDS: SODIUM CHLORIDE 1,000 ML IV SCH (09:24)
[2017-09-18] MEDS: INSULIN SLIDING SCALE (NOVOLOG) 1 VIAL SQ SCH ×4 (09:25→21:12)
[2017-09-18] MEDS ORDERED: LISINOPRIL 5 MG TABLET (FP) PO SCH (10:00)
[2017-09-18] MEDS ORDERED: RANITIDINE HCL 150 MG TABLET (FP) PO SCH (10:00)
[2017-09-18] MEDS: amLODIPine BESYLATE 5 MG TABLET (FP) PO SCH (10:10)
--- NOTE | 2017-09-18 10:40 | EKG ---
Test Reason : Blood Pressure : / mmHG Vent. Rate : 081 BPM Atrial Rate : 081 BPM P-R Int : 224 ms QRS Dur : 144 ms QT Int : 460 ms P-R-T Axes : 055 -61 054 degrees QTc Int : 534 ms SINUS RHYTHM WITH SINUS ARRHYTHMIA WITH 1ST DEGREE A-V BLOCK LEFT AXIS DEVIATION RIGHT BUNDLE BRANCH BLOCK MODERATE VOLTAGE CRITERIA FOR LVH, MAY BE NORMAL VARIANT INFERIOR INFARCT , AGE UNDETERMINED POSSIBLE ANTERIOR INFARCT , AGE UNDETERMINED ABNORMAL ECG NO PREVIOUS ECGS AVAILABLE Confirmed by MIGUE MCKEON MD ([id number]) on 09/18/2017 10:40:35 AM Referred By: Confirmed By:MIGUE MCKEON MD
[2017-09-18] MEDS ORDERED: MECLIZINE HCL 12.5 MG TABLET PO PRN (11:58)
--- NOTE | 2017-09-18 12:43 | PN ---
Physical Exam: SUBJECTIVE: Patient seen and examined at the bedside. [place] nauseous this morning. Still dizzy and does not want to ambulate. Patient reports that yesterday, she felt dizzy when she bent down. She also had associated nausea and vomiting and had two episodes of vomiting at home. She initially vomited yellow non bilious, non bloody vomitus, and on the second episode had green vomitus, non bloody. She reports a history of epilepsy, last seizure 4 year ago. OBJECTIVE: Vital Signs Period Temp Pulse Resp BP Sys/Smith Pulse Ox Last 24 Hr 96.1 F-98.3 F 65-86 16-22 141-171/81-98 94-99 GENERAL: The patient is awake, alert, and fully oriented, in no acute distress. HEAD: Normal with no signs of trauma. EYES: PERRL, extraocular movements intact, sclera anicteric, conjunctiva clear. No ptosis. ENT: Ears normal, nares patent, oropharynx clear without exudates, moist mucous membranes. NECK: Trachea midline, full range of motion, supple. LUNGS: Breath sounds equal, clear to auscultation bilaterally, no wheezes, no crackles, no accessory muscle use. HEART: Regular rate and rhythm ABDOMEN: Soft, nontender, nondistended, hypoactive bowel sounds, no guarding, no rebound, +flatus, BM yesterday EXTREMITIES: no edema. NEUROLOGICAL: Normal speech, gait not observed. PSYCH: Normal mood, normal affect. SKIN: healed abdominal surgical scars Laboratory Results - last 24 hr 09/17/17 09/17/17 09/17/17 21:00 21:00 21:30 WBC 9.6 RBC 4.66 Hgb 11.5 D Hct 34.9 MCV 75.0 L MCH 24.7 L MCHC 32.9 RDW 14.9 D Plt Count 327 D MPV 8.2 D Neutrophils % 57.3 Lymphocytes % 30.8 Monocytes % 9.4 Eosinophils % 2.0 Basophils % 0.5 Sodium 141 Potassium 4.0 Chloride 109 H Carbon Dioxide 26 Anion Gap 6 L BUN 8 Creatinine 0.6 Creat Clearance w eGFR > 60 POC Glucometer Random Glucose 89 Calcium 8.6 Phosphorus Magnesium Total Bilirubin 0.3 D Direct Bilirubin < 0.2 AST 15 ALT 23 Alkaline Phosphatase 259 H Creatine Kinase Creatine Kinase Index CK-MB (CK-2) Troponin I Total Protein 6.8 Albumin 3.4 Lipase 84 Urine Color Urine Appearance Urine pH Ur Specific [place] Urine Protein Urine Glucose (UA) Urine Ketones Urine Blood Urine Nitrite Urine Bilirubin Urine Urobilinogen Ur Leukocyte Esterase Urine WBC (Auto) Urine RBC (Auto) Urine Mucus Acetone, Qual Negative L 09/17/17 09/17/17 09/18/17 22:35 22:45 05:52 WBC 9.0 RBC 3.97 Hgb 12.9 D Hct 38.4 MCV 96.7 H D MCH 32.4 D MCHC 33.5 RDW 13.0 D Plt Count 179 D MPV 10.5 D Neutrophils % Lymphocytes % Monocytes % Eosinophils % Basophils % Sodium Potassium Chloride Carbon Dioxide Anion Gap BUN Creatinine Creat Clearance w eGFR POC Glucometer Random Glucose Calcium Phosphorus Magnesium Total Bilirubin Direct Bilirubin AST ALT Alkaline Phosphatase Creatine Kinase 321 H Creatine Kinase Index 2.3 CK-MB (CK-2) 7.456 H Troponin I < 0.02 Total Protein Albumin Lipase Urine Color Colorless Urine Appearance Clear Urine pH 8.0 Ur Specific [place] 1.006 Urine Protein 2+ H Urine Glucose (UA) 1+ H Urine Ketones Negative Urine Blood 1+ H Urine Nitrite Negative Urine Bilirubin Negative Urine Urobilinogen Negative Ur Leukocyte Esterase Negative Urine WBC (Auto) <1 Urine RBC (Auto) 1 Urine Mucus Rare Acetone, Qual 09/18/17 09/18/17 05:52 09:17 WBC RBC Hgb Hct MCV MCH MCHC RDW Plt Count MPV Neutrophils % Lymphocytes % Monocytes % Eosinophils % Basophils % Sodium 140 Potassium 4.5 Chloride 105 Carbon Dioxide 28 Anion Gap 7 L BUN 20 H Creatinine 1.2 H Creat Clearance w eGFR 45.52 POC Glucometer [phone] Random Glucose 158 H Calcium 8.5 Phosphorus 3.7 Magnesium 1.9 Total Bilirubin 0.2 D Direct Bilirubin AST 16 ALT 14 Alkaline Phosphatase 83 Creatine Kinase Creatine Kinase Index CK-MB (CK-2) Troponin I < 0.02 Total Protein 8.0 Albumin 3.8 Lipase Urine Color Urine Appearance Urine pH Ur Specific [place] Urine Protein Urine Glucose (UA) Urine Ketones Urine Blood Urine Nitrite Urine Bilirubin Urine Urobilinogen Ur Leukocyte Esterase Urine WBC (Auto) Urine RBC (Auto) Urine Mucus Acetone, Qual Active Medications Generic Name Dose Route Start Last Admin Trade Name Freq PRN Reason Stop Dose Admin Amlodipine Besylate 5 mg 09/18/17 10:00 09/18/17 10:10 Norvasc - PO 5 mg DAILY PÉREZ Administration Atorvastatin Calcium 40 mg 09/18/17 22:00 Lipitor - PO HS PÉREZ Gabapentin 300 mg 09/18/17 06:00 09/18/17 06:08 Neurontin - PO 300 mg TID PÉREZ Administration Sodium Chloride 1,000 mls @ 75 mls/hr 09/18/17 07:45 09/18/17 09:24 Normal Saline - IV 75 mls/hr ASDIR PÉREZ Administration Insulin Aspart 1 vial 09/18/17 07:00 09/18/17 09:25 Novolog Vial Sliding Scale - SQ Not Given ACHS PÉREZ Protocol Lisinopril 5 mg 09/18/17 10:00 Prinivil PO DAILY PÉREZ Meclizine HCl 12.5 mg 09/18/17 11:58 Antivert - PO TID PRN VERTIGO Metoprolol Succinate 100 mg 09/18/17 10:00 09/18/17 10:10 Toprol Xl - PO 100 mg BID PÉREZ Administration Phenobarbital 100 mg 09/18/17 10:00 Phenobarbital - PO BID PÉREZ Ranitidine HCl 150 mg 09/18/17 10:00 09/18/17 10:10 Zantac - PO 150 mg BID PÉREZ Administration ASSESSMENT/PLAN: Patient is a 62 year old female with a significant past medical history of diabetes, hypertension, morbid obesity, cholecystectomy, gastric sleeve 2016, epilepsy (last seizure 4 years ago). She presented to the ED on 09/17/2017 with nausea/vomiting after eating pizza at home. Not short of breath, no chest pian. She is passing gas and had a small BM yesterday. On exam, she has having another episode of dizziness and nausea and a mild headache. Denies visual changes. Her abdomen was not distended, not painful, but noted to have hypoactive bowel sounds, no pain on palpation of abd. GI: Nausea/vomiting Hypoactive bowel sounds Abdominal RUQ sonogram negative Start on IVF Protonix NPO Avoid Zofran for prolonged QTC Companzine 5mg q8, if ineffective, then trial of Ativan 0.5mg prn Abd xray to rule out obstruction Meds with sips of water Surgery consulted Morbid obesity s/p gastric sleeve Apx 120 weight loss since surgery as per pt Card: Hypertension Monitor BP Lisinopril on hold for BELEM Metoprolol 100mg BID Norvasc 5mg daily Prolonged QTC on ekg Avoid meds that prolong qtc Keep Mag levels 2 or greater Monitor K levels with goal of 4 Neuro: Epilepsy, controlled on Phenobarbital Continue Pnenobarbital PO Dizziness, mild headache, persists Head CT Trend trops Echo Renal: BELEM @ 1.2 Likely due to acute vomiting Hydrate, repeat labs in a.m. Endocrine: Diabetes, chronic Novolog, monitor BGMs F.E.N. Fluids: NS @ 100cc/hr Electrolytes: magnesium 1 gram given Nutrition: NPO for now Prophylaxis: DVT: SCDs GI: Protonix IV push Disposition: full code Visit type - Emergency Visit Emergency Visit: Yes ED Registration Date: 09/21/17 Care time: The patient presented to the Emergency Department on the above date and was hospitalized for further evaluation of their emergent condition. - New Patient This patient is new to me today: Yes Date on this admission: 09/26/17 - Critical Care Critical Care patient: No - Discharge Referral Referred to [facility] No
[2017-09-18] MEDS ORDERED: MAGNESIUM 1GM/D5W 100ML - 100 ML IVPB IVPB ONE (12:55)
[2017-09-18] MEDS ORDERED: MAGNESIUM SULF 50% (8.12 MEQ/2 ML-1 GM VIAL) ONE (14:35)
[2017-09-18] MEDS ORDERED: PANTOPRAZOLE SODIUM 40 MG VIAL IVPUSH ONE (15:23)
[2017-09-18] MEDS ORDERED: PROCHLORPERAZINE INJECTION 10 MG/2 ML VIAL IVPB PRN (15:58)
[2017-09-18] MEDS ORDERED: PANTOPRAZOLE SODIUM 40 MG VIAL ONE (16:44)
--- NOTE | 2017-09-18 17:15 | CONSULT ---
Consult - text type - Consultation Consultation Note: Bariatric Consultation 62 y.o female 10 months S/P Lap Sleeve Gastrectomy who presents to ER on 2017 with nausea and vomiting. Pt states she ate pizza and developed nausea and vomiting soon after. Pt also c/o dizziness and has prior medical history of CVA in the past. Presently patient feels better with no N/V and states she is hungry P/E-Abd- no distention well-healed trocar incisions soft, non-tender on palpation in all quadrants no rebound tenderness, no guarding WBC-9.0 (slight decrease) H/H-12.9/38.4 (slight increase) CPK-MB- increased AP- now normal BUN/CR-20/1.2 today (increased from admission) I- N/V- now appears resolving Rec- 1. Abdominal complaints decreased/resolving. I would still recommend CT of Abdomen/Pelvis with PO contrast 2. F/U cardiac work-up 3. F/U dizziness with prior history of CVA 4. Assume dehydration contributes to elevated BUN/CR (should keep monitered and consult Renal if worsens.
--- NOTE | 2017-09-18 17:29 | CON.CARD ---
Consult Consult Specialty:: Cardiology Referred by:: arminda Fletcher Reason for Consultation:: nausea - History of Present Illness Chief Complaint: Nausea and vomiting History of Present Illness: 62 year old female with a pmhx, of htn, dm, hld, obesity, cva, h/o cerebral aneurysm rupture, seizures, and h/o lap sleeve gastrectomy who presents with nausea and vomiting. As per patient, she ate pizza and then developed nausea and vomiting. Also c/o some dizziness at times. Denies any chest pain. No epigastric pain. No sob, orthopnea, or pnd. No palpitations. Currently feels fine with no dizziness. Says no symptoms with exertion. Trops neg EKG: sinus rhythm, RBBB, inferior infarct pattern, lad, questions of anterolateral infarct pattern (unchanged) - History Source History Provided By: Patient, Medical Record - Past Medical History [employer]: Yes: CVA, Seizure Cardio/Vascular: Yes: HTN, Hyperlipdemia Endocrine: Yes: Diabetes Mellitus, Other (obesity) Additional Medical History: cerebral aneursym rupture 10 years ago - Alcohol/Substance Use Hx Alcohol Use: No - Smoking History Smoking history: Never smoked Have you smoked in the past 12 months: No - Social History Usual Living Arrangement: With Child Home Medications - Allergies Allergies/Adverse Reactions: Allergies Allergy/AdvReac Type Severity Reaction Status Date / Time levetiracetam [From Keppra] Allergy Swelling Verified 09/17/17 19:53 morphine Allergy Itching Verified 09/17/17 19:53 hydromorphone HCl AdvReac Itching Verified 09/17/17 19:53 [From Dilaudid] - Home Medications Home Medications: Ambulatory Orders Amlodipine Besylate 5 mg PO DAILY 11/16/16 Metoprolol Succinate [Toprol Xl] 100 mg PO BID 11/16/16 Atorvastatin Ca [Lipitor] 40 mg PO HS 11/17/16 Famotidine [Pepcid] 20 mg PO BID #60 tablet 11/17/16 Glipizide 5 mg PO DAILY 11/17/16 Lisinopril [Zestril] 5 mg PO DAILY 11/17/16 Phenobarbital 97.2 mg PO BID 11/17/16 Gabapentin [Neurontin -] 300 mg PO Q8H 09/17/17 Vital Signs: Vital Signs Temperature 98.3 F 09/18/17 07:15 Pulse Rate 86 09/18/17 10:45 Respiratory Rate 18 09/18/17 10:45 Blood Pressure 142/90 09/18/17 10:45 O2 Sat by Pulse Oximetry (%) 99 09/18/17 10:45 Constitutional: Yes: No Distress Neck: Yes: Supple Respiratory: Yes: CTA Bilaterally Gastrointestinal: Yes: Normal Bowel Sounds, Soft Cardiovascular: Yes: Regular Rate and Rhythm JVD: No Carotid Bruit: No PMI: Non-Displaced Heart Sounds: Yes: S1, S2 Murmur: No: Systolic Murmur Edema: No - Other Data Labs, Other Data: CBC, BMP 09/18/17 05:52 09/18/17 05:52 Troponin, BNP 09/17/17 09/18/17 22:35 05:52 Troponin I < 0.02 < 0.02 Troponin, BNP 09/17/17 09/18/17 22:35 05:52 Troponin I < 0.02 < 0.02 Imaging - Results Chest X-ray: Report Reviewed EKG: Image Reviewed Assessment/Plan 62 year old female with a pmhx, of htn, dm, hld, obesity, cva, h/o cerebral aneurysm rupture, seizures, and h/o lap sleeve gastrectomy who presents with nausea and vomiting. As per patient, she ate pizza and then developed nausea and vomiting. Also c/o some dizziness at times. Denies any chest pain. No epigastric pain. No sob, orthopnea, or pnd. No palpitations. Currently feels fine with no dizziness. Says no symptoms with exertion. Trops neg EKG: sinus rhythm, RBBB, inferior infarct pattern, lad, questions of anterolateral infarct pattern (unchanged) CXR: no acute pathology CT head no acute issues Cr up to 1.2 from baseline -Patient presenting with nausea and vomiting with some dizziness. CT head no acute issues. EKG with no acute changes from old. Trops negative. Cr is up from baseline. IVF's -Restarted amlodipine and metoprolol for bp control. Can increase amlodipine further if needed. Patient reports imaging last year with Dr. Fuentes's office can call for records. In 2016, echo nl lvef and stress test with no ischemia. No further cardiac testing at this time time.
[2017-09-18] MEDS: PHENobarbital 30 MG TABLET PO SCH (21:11)
[2017-09-18] MEDS: ATORVASTATIN CA 40 MG TABLET (FP) PO SCH (21:11)
[2017-09-19] MEDS: GABAPENTIN 300 MG CAPSULE (FP) PO SCH ×3 (06:12→21:35)
[2017-09-19] MEDS: INSULIN SLIDING SCALE (NOVOLOG) 1 VIAL SQ SCH ×4 (06:12→21:39)
[2017-09-19] MEDS ORDERED: PT OWN MED DRAWER 7, Y5N ONE ×3 (06:18→17:59)
[2017-09-19] MEDS: SODIUM CHLORIDE 1,000 ML IV SCH ×2 (08:57→17:10)
[2017-09-19] MEDS: amLODIPine BESYLATE 5 MG TABLET (FP) PO SCH (09:00)
[2017-09-19] MEDS: PHENobarbital 30 MG TABLET PO SCH ×2 (09:00→21:35)
--- NOTE | 2017-09-19 09:45 | PN ---
Progress Note, Physician Chief Complaint: No complaints at this time No more n/v. Denies ever having chest pain or epigastric pain. Tele: sinus rhythm with occasional pvc's History of Present Illness: 62 year old female with a pmhx, of htn, dm, hld, obesity, cva, h/o cerebral aneurysm rupture, seizures, and h/o lap sleeve gastrectomy who presents with nausea and vomiting. As per patient, she ate pizza and then developed nausea and vomiting. Also c/o some dizziness at times. Denies any chest pain. No epigastric pain. No sob, orthopnea, or pnd. No palpitations. Currently feels fine with no dizziness. Says no symptoms with exertion. Trops neg EKG: sinus rhythm, RBBB, inferior infarct pattern, lad, questions of anterolateral infarct pattern (unchanged) - Current Medication List Current Medications: Active Medications Amlodipine Besylate (Norvasc -) 5 mg PO DAILY [facility] Last Admin: 09/19/17 09:00 Dose: 5 mg Atorvastatin Calcium (Lipitor -) 40 mg PO HS [facility] Last Admin: 09/18/17 21:11 Dose: 40 mg Gabapentin (Neurontin -) 300 mg PO TID [facility] Last Admin: 09/19/17 06:12 Dose: 300 mg Sodium Chloride (Normal Saline -) 1,000 mls @ 75 mls/hr IV ASDIR [facility] Last Admin: 09/19/17 08:57 Dose: 75 mls/hr Insulin Aspart (Novolog Vial Sliding Scale -) 1 vial SQ ACHS [facility] PRN Reason: Protocol Last Admin: 09/19/17 06:12 Dose: Not Given Lisinopril (Prinivil) 5 mg PO DAILY [facility] Meclizine HCl (Antivert -) 12.5 mg PO TID PRN PRN Reason: VERTIGO Metoprolol Succinate (Toprol Xl -) 100 mg PO BID [facility] Last Admin: 09/19/17 09:00 Dose: 100 mg Pantoprazole Sodium (Protonix Iv) 40 mg IVPUSH DAILY [facility] Last Admin: 09/19/17 09:00 Dose: 40 mg Phenobarbital (Phenobarbital -) 90 mg PO BID [facility] Last Admin: 09/19/17 09:00 Dose: 90 mg Prochlorperazine Edisylate (Compazine Injection -) 5 mg IVPB Q8H PRN PRN Reason: NAUSEA AND/OR VOMITING - Objective Vital Signs: Vital Signs Temperature 97.6 F 09/19/17 06:00 Pulse Rate 57 L 09/19/17 06:00 Respiratory Rate 18 09/19/17 06:00 Blood Pressure 156/88 09/19/17 06:00 O2 Sat by Pulse Oximetry (%) 98 09/19/17 06:00 Constitutional: Yes: No Distress Neck: Yes: Supple Cardiovascular: Yes: Regular Rate and Rhythm, S1, S2. No: JVD, Murmur Respiratory: Yes: CTA Bilaterally Gastrointestinal: Yes: Normal Bowel Sounds, Soft Edema: No Labs: CBC, BMP 09/18/17 05:52 09/18/17 05:52 Problem List - Problems (1) Hypertension Code(s): I10 - ESSENTIAL (PRIMARY) HYPERTENSION Qualifiers: Hypertension type: essential hypertension Qualified Code(s): I10 - Essential (primary) hypertension Assessment/Plan 62 year old female with a pmhx, of htn, dm, hld, obesity, cva, h/o cerebral aneurysm rupture, seizures, and h/o lap sleeve gastrectomy who presents with nausea and vomiting. As per patient, she ate pizza and then developed nausea and vomiting. Also c/o some dizziness at times. Denies any chest pain. No epigastric pain. No sob, orthopnea, or pnd. No palpitations. Currently feels fine with no dizziness. Says no symptoms with exertion. Trops neg EKG: sinus rhythm, RBBB, inferior infarct pattern, lad, questions of anterolateral infarct pattern (unchanged) CXR: no acute pathology CT head no acute issues Cr up to 1.2 from baseline -Patient presenting with nausea and vomiting with some dizziness. CT head no acute issues. EKG with no acute changes from old. Trops negative. Echocardiogram 09/18/17: normal LVEF with mild MR. Cr is up from baseline likely due to dehydration s/p IVF's. -Would give her her home medications: amlodipine, metoprolol, and lisinopril ( if Cr improved) for bp control. Can increase amlodipine further if needed based on today's readings. No further cardiac testing at this time time. Can f/u with Dr. Fuentes as an outpatient. [phone]
[2017-09-19] MEDS ORDERED: PANTOPRAZOLE SODIUM 40 MG VIAL IVPUSH SCH (10:00)
[2017-09-19 10:04] LABS: BASO % 0.4 % (0-2.0); EOS % 2.4 % (0-4.5); HEMATOCRIT 35.2 % (32.4-45.2); HEMOGLOBIN 11.8 GM/dL (10.7-15.3); LYMPH % 24.8 % (8-40); MCH 32.9 pg (25.7-33.7); MCHC 33.7 g/dl (32.0-36.0); MEAN CELL VOLUME 97.6 fl (80-96); MEAN PLT VOLUME 10.4 fl (7.5-11.1); MONO % 5.5 % (3.8-10.2); NEUT % 66.9 % (42.8-82.8); PLATELET COUNT 167 K/MM3 (134-434); RBC 3.61 M/mm3 (3.60-5.2); RDW 13.1 % (11.6-15.6); WHITE BLOOD COUNT 6.1 K/mm3 (4.0-10.0)
[2017-09-19 10:24] LABS: ALBUMIN 3.1 g/dl (3.4-5.0); ANION GAP 6 (8-16); BILIRUBIN,TOTAL 0.3 mg/dL (0.2-1.0); BLOOD UREA NITROGEN 22 mg/dL (7-18); CALCIUM 8.1 mg/dL (8.5-10.1); CHLORIDE 109 mmol/L (98-107); CHOLESTEROL 193 mg/dL (50-200); CO2 28 mmol/L (21-32); CREATININE 1.2 mg/dL (0.55-1.02); GLUCOSE,RANDOM 97 mg/dL (74-106); MAGNESIUM 2.2 mg/dL (1.8-2.4); POTASSIUM 3.9 mmol/L (3.5-5.1); SGOT/AST 14 U/L (15-37); SGPT/ALT 14 U/L (12-78); SODIUM 143 mmol/L (136-145); TOT PROT 6.2 g/dl (6.4-8.2); TRIGLYCERIDES 204 mg/dL (35-160)
[2017-09-19 10:26] LABS: ALK PHOS 64 U/L (45-117); HDL CHOLESTEROL 40 mg/dL (40-60)
--- NOTE | 2017-09-19 16:10 | PN ---
Physical Exam: SUBJECTIVE: Patient seen and examined OBJECTIVE: Vital Signs Period Temp Pulse Resp BP Sys/Smith Pulse Ox Last 24 Hr 97.6 F-98.8 F 57-74 16-18 137-156/58-88 98-98 GENERAL: The patient is awake, alert, and fully oriented, in no acute distress. HEAD: Normal with no signs of trauma. EYES: PERRL, extraocular movements intact, sclera anicteric, conjunctiva clear. No ptosis. ENT: Ears normal, nares patent, oropharynx clear without exudates, moist mucous membranes. NECK: Trachea midline, full range of motion, supple. LUNGS: Breath sounds equal, clear to auscultation bilaterally, no wheezes, no crackles, no accessory muscle use. HEART: Regular rate and rhythm, S1, S2 without murmur, rub or gallop. ABDOMEN: Soft, nontender, nondistended, normoactive bowel sounds, no guarding, no rebound, no hepatosplenomegaly, no masses. EXTREMITIES: 2+ pulses, warm, well-perfused, no edema. NEUROLOGICAL: Cranial nerves II through XII grossly intact. Normal speech, gait not observed. PSYCH: Normal mood, normal affect. SKIN: Warm, dry, normal turgor, no rashes or lesions noted Laboratory Results - last 24 hr 09/18/17 09/18/17 09/18/17 18:05 18:37 20:39 WBC RBC Hgb Hct MCV MCH MCHC RDW Plt Count MPV Neutrophils % Lymphocytes % Monocytes % Eosinophils % Basophils % Sodium Potassium Chloride Carbon Dioxide Anion Gap BUN Creatinine Creat Clearance w eGFR POC Glucometer 118.04230 107 Random Glucose Hemoglobin A1c % Calcium Magnesium Total Bilirubin AST ALT Alkaline Phosphatase Troponin I < 0.02 Total Protein Albumin Triglycerides Cholesterol Total LDL Cholesterol HDL Cholesterol 09/19/17 09/19/17 09/19/17 05:32 09:25 09:25 WBC 6.1 D RBC 3.61 Hgb 11.8 Hct 35.2 MCV 97.6 H MCH 32.9 MCHC 33.7 RDW 13.1 Plt Count 167 MPV 10.4 Neutrophils % 66.9 Lymphocytes % 24.8 Monocytes % 5.5 Eosinophils % 2.4 Basophils % 0.4 Sodium 143 Potassium 3.9 Chloride 109 H Carbon Dioxide 28 Anion Gap 6 L BUN 22 H Creatinine 1.2 H Creat Clearance w eGFR 45.52 POC Glucometer 111 Random Glucose 97 Hemoglobin A1c % Calcium 8.1 L Magnesium 2.2 Total Bilirubin 0.3 D AST 14 L ALT 14 Alkaline Phosphatase 64 Troponin I Total Protein 6.2 L Albumin 3.1 L Triglycerides 204 H Cholesterol 193 Total LDL Cholesterol 132 H HDL Cholesterol 40 09/19/17 09/19/17 09:25 11:34 WBC RBC Hgb Hct MCV MCH MCHC RDW Plt Count MPV Neutrophils % Lymphocytes % Monocytes % Eosinophils % Basophils % Sodium Potassium Chloride Carbon Dioxide Anion Gap BUN Creatinine Creat Clearance w eGFR POC Glucometer 91 Random Glucose Hemoglobin A1c % 6.6 H Calcium Magnesium Total Bilirubin AST ALT Alkaline Phosphatase Troponin I Total Protein Albumin Triglycerides Cholesterol Total LDL Cholesterol HDL Cholesterol Active Medications Generic Name Dose Route Start Last Admin Trade Name Freq PRN Reason Stop Dose Admin Amlodipine Besylate 5 mg 09/18/17 10:00 09/19/17 09:00 Norvasc - PO 5 mg DAILY PÉREZ Administration Atorvastatin Calcium 40 mg 09/18/17 22:00 09/18/17 21:11 Lipitor - PO 40 mg HS PÉREZ Administration Gabapentin 300 mg 09/18/17 06:00 09/19/17 13:13 Neurontin - PO 300 mg TID PÉREZ Administration Sodium Chloride 1,000 mls @ 75 mls/hr 09/18/17 07:45 09/19/17 08:57 Normal Saline - IV 75 mls/hr ASDIR PÉREZ Administration Insulin Aspart 1 vial 09/18/17 07:00 09/19/17 11:59 Novolog Vial Sliding Scale - SQ Not Given ACHS PÉREZ Protocol Lisinopril 5 mg 09/18/17 10:00 Prinivil PO DAILY PÉREZ Meclizine HCl 12.5 mg 09/18/17 11:58 Antivert - PO TID PRN VERTIGO Metoprolol Succinate 100 mg 09/18/17 10:00 09/19/17 09:00 Toprol Xl - PO 100 mg BID PÉREZ Administration Pantoprazole Sodium 40 mg 09/19/17 10:00 09/19/17 09:00 Protonix Iv IVPUSH 40 mg DAILY PÉREZ Administration Phenobarbital 90 mg 09/18/17 14:58 09/19/17 09:00 Phenobarbital - PO 90 mg BID PÉREZ Administration Prochlorperazine Edisylate 5 mg 09/18/17 15:58 Compazine Injection - IVPB Q8H PRN NAUSEA AND/OR VOMITING Assessment: 62 year old female with pmhx of DM II, HTN, morbid obesity, cholecystectomy, gastric sleeve 2017, epilepsy (last seizure 4 years ago) presented with nausea, vomiting. Plan: 1. Nausea/vomiting - Resolved - Due to previous gastric surgery obtain CTAP w/ po contrast - If neg can start soft diet - Surgery seeing, d/w Dr. Sterling 2. Prolonged Qtc - Stop compazine, protonix, meclazine - EKG now - Monitor Mg, K 3. Morbid obesity - s/p gastric sleeve 4. HTN - Stable - Metoprolol 100mg BID - Norvasc 5mg daily - Lisinopril on hold for BELEM 5. Epilepsy - Phenobarbital 6. Dizziness, mild headache, persists - Head CT with no acute changes, shows chronic left ERNESTO infarct - Unclear why not on daily ASA - ECHO nml lv size, fxn, EF 55-60%, mild MR 7. BELEM - Holding Lisinopril - Cr unchanged - UA with proteinuria, will need outpt renal work up 8. DM II, neuropathy - ISS, BGM ACHS - Gabapetin 9. DVT - Heparin sq Dispo: - DC home tomorrow if tolerate PO diet Visit type - Emergency Visit Emergency Visit: Yes ED Registration Date: 09/18/17 Care time: The patient presented to the Emergency Department on the above date and was hospitalized for further evaluation of their emergent condition. - New Patient This patient is new to me today: Yes Date on this admission: 09/19/17 - Critical Care Critical Care patient: No
--- NOTE | 2017-09-19 16:18 | PN ---
Progress Note (short form) - Note Progress Note: Afebrile;VSS Pt doing very well States has hunger NO N/V No abdominal pain P/E- Abd-soft, non-tender on palpation WBC-6.1 H/H-11.8/35.2 CT Scan- Abd/Pelvis- no obstruction, no extravasation contrast flows into colon Rec- soft diet tonight, advance to regular tomorrow Encourage ambulation Clear for D/C home from Bariatric view F/U with Bariatric Surgery in 2 weeks
[2017-09-19] MEDS: ATORVASTATIN CA 40 MG TABLET (FP) PO SCH (21:35)
[2017-09-19] MEDS: HEPARIN NA (PORCINE) 5,000 UNITS/ML 1ML VIAL SQ SCH (21:35)
[2017-09-20] MEDS: GABAPENTIN 300 MG CAPSULE (FP) PO SCH ×3 (05:49→21:04)
[2017-09-20] MEDS: HEPARIN NA (PORCINE) 5,000 UNITS/ML 1ML VIAL SQ SCH ×3 (05:49→21:05)
[2017-09-20] MEDS: INSULIN SLIDING SCALE (NOVOLOG) 1 VIAL SQ SCH ×4 (05:59→21:05)
[2017-09-20] MEDS: PHENobarbital 30 MG TABLET PO SCH ×2 (09:29→21:04)
[2017-09-20] MEDS: amLODIPine BESYLATE 5 MG TABLET (FP) PO SCH (09:29)
[2017-09-20 10:16] LABS: CHLORIDE 108 mmol/L (98-107); POTASSIUM 3.9 mmol/L (3.5-5.1); SODIUM 143 mmol/L (136-145)
[2017-09-20 10:51] LABS: ANION GAP 10 (8-16); BLOOD UREA NITROGEN 25 mg/dL (7-18); CALCIUM 8.2 mg/dL (8.5-10.1); CO2 25 mmol/L (21-32); CREATININE 1.4 mg/dL (0.55-1.02); GLUCOSE,RANDOM 89 mg/dL (74-106)
[2017-09-20] MEDS ORDERED: CEFTRIAXONE 1 GM in DEXTROSE 5%-WATER - 50 ML IVPB ONE ×2 (12:08→12:45)
--- NOTE | 2017-09-20 13:12 | EKG ---
Test Reason : Blood Pressure : / mmHG Vent. Rate : 057 BPM Atrial Rate : 057 BPM P-R Int : 206 ms QRS Dur : 142 ms QT Int : 498 ms P-R-T Axes : 055 -66 037 degrees QTc Int : 484 ms SINUS BRADYCARDIA LEFT AXIS DEVIATION RIGHT BUNDLE BRANCH BLOCK INFERIOR INFARCT (CITED ON OR BEFORE 19-SEP-2017) ABNORMAL ECG WHEN COMPARED WITH ECG OF 19-SEP-2017 17:28, NO SIGNIFICANT CHANGE WAS FOUND Confirmed by TRISTA WILKINSON MD ([id number]) on 09/20/2017 1:12:10 PM Referred By: PASCUAL Confirmed By:TRISTA WILKINSON MD
[2017-09-20] MEDS ORDERED: cefTRIAXone SODIUM 1 GM VIAL ONE (14:11)
[2017-09-20] MEDS ORDERED: DEXTROSE 5%-WATER - 50 ML IVPB ONE (14:11)
--- NOTE | 2017-09-20 14:36 | PN ---
Physical Exam: SUBJECTIVE: Patient seen and examined. She has had increased urinary frequency, denies dysuria, fever, chills, hesitancy OBJECTIVE: Vital Signs Period Temp Pulse Resp BP Sys/Smith Pulse Ox Last 24 Hr 97.5 F-98.9 F 57-69 18-20 128-182/62-95 94-94 PE Neuro: alert, awake, cn 2-12intact Pulm: CTA anteriorly CV: s1 s2 rrr Abd: s nt nd +bs Ext: warm, no le edema Laboratory Results - last 24 hr 09/20/17 09/20/17 06:30 11:30 Sodium 143 Potassium 3.9 Chloride 108 H Carbon Dioxide 25 Anion Gap 10 BUN 25 H Creatinine 1.4 H POC Glucometer 90 Random Glucose 89 Calcium 8.2 L Active Medications Generic Name Dose Route Start Last Admin Trade Name Freq PRN Reason Stop Dose Admin Amlodipine Besylate 5 mg 09/18/17 10:00 09/20/17 09:29 Norvasc - PO 5 mg DAILY PÉREZ Administration Atorvastatin Calcium 40 mg 09/18/17 22:00 09/19/17 21:35 Lipitor - PO 40 mg HS PÉREZ Administration Gabapentin 300 mg 09/18/17 06:00 09/20/17 14:18 Neurontin - PO 300 mg TID PÉREZ Administration Heparin Sodium (Porcine) 5,000 unit 09/19/17 22:00 09/20/17 14:17 Heparin - SQ 5,000 unit TID PÉREZ Administration Sodium Chloride 1,000 mls @ 42 mls/hr 09/19/17 16:21 09/19/17 17:10 Normal Saline - IV 42 mls/hr ASDIR PÉREZ Administration Insulin Aspart 1 vial 09/18/17 07:00 09/20/17 12:30 Novolog Vial Sliding Scale - SQ Not Given ACHS [facility] Protocol Lisinopril 5 mg 09/18/17 10:00 Prinivil PO DAILY PÉREZ Metoprolol Succinate 100 mg 09/18/17 10:00 09/20/17 09:29 Toprol Xl - PO 100 mg BID PÉREZ Administration Phenobarbital 90 mg 09/18/17 14:58 09/20/17 09:29 Phenobarbital - PO 90 mg BID PÉREZ Administration Assessment: 62 year old female with pmhx of DM II, HTN, morbid obesity, cholecystectomy, gastric sleeve 2016, epilepsy (last seizure 4 years ago) presented with nausea, vomiting. Plan: 1. Nausea/vomiting - Resolved - Due to previous gastric surgery obtain CTAP w/ po contrast - Tolerating reg diet 2. Prolonged Qtc - Stop compazine, protonix, meclazine - Improved on repeat EKG 3. Morbid obesity - s/p gastric sleeve 4. HTN - Stable - Metoprolol 100mg BID - Norvasc 5mg daily - Lisinopril on hold for BELEM 5. Epilepsy - Phenobarbital 6. Dizziness, mild headache, persists - Head CT with no acute changes, shows chronic left ERNESTO infarct - Unclear why not on daily ASA - ECHO nml lv size, fxn, EF 55-60%, mild MR 7. BELEM - Holding Lisinopril - Repeat BMP - UA with proteinuria, will need outpt renal work up 8. UTI - Urine cx with e coli - Start ceftriaxone (day 1) - Repeat UA 9. DM II, neuropathy - ISS, BGM ACHS - Gabapetin 10. DVT - Heparin sq Visit type - Emergency Visit Emergency Visit: Yes ED Registration Date: 09/18/17 Care time: The patient presented to the Emergency Department on the above date and was hospitalized for further evaluation of their emergent condition. - New Patient This patient is new to me today: No - Critical Care Critical Care patient: No
[2017-09-20 16:42] LABS: URINE APPEARANCE SLCLOUDY; URINE BILIRUBIN NEGATIVE (<2.0 mg/dL); URINE COLOR YELLOW; URINE GLUCOSE (UA) NEGATIVE (NEGATIVE); URINE KETONE NEGATIVE (NEGATIVE); URINE NITRITE POSITIVE (NEGATIVE); URINE PROTEIN NEGATIVE (NEGATIVE); URINE UROBILINOGEN NEGATIVE mg/dL (0.2-1.0)
[2017-09-20 16:46] LABS: URINE LEUK ESTERASE 2+ (NEGATIVE)
[2017-09-20 16:59] LABS: EPI CELLS RARE /HPF (FEW); URINE BACTERIA MANY /hpf (NONE SEEN); URINE MUCUS RARE
[2017-09-20 17:20] LABS: ANION GAP 8 (8-16); BLOOD UREA NITROGEN 28 mg/dL (7-18); CALCIUM 8.2 mg/dL (8.5-10.1); CHLORIDE 105 mmol/L (98-107); CO2 27 mmol/L (21-32); CREATININE 1.6 mg/dL (0.55-1.02); GLUCOSE,RANDOM 97 mg/dL (74-106); POTASSIUM 3.9 mmol/L (3.5-5.1); SODIUM 140 mmol/L (136-145)
[2017-09-20] MEDS: SODIUM CHLORIDE 1,000 ML IV SCH (17:22)
[2017-09-20] MEDS: ATORVASTATIN CA 40 MG TABLET (FP) PO SCH (21:04)
[2017-09-21] MEDS ORDERED: ACETAMINOPHEN 325 MG TABLET (FP) ONE (02:04)
[2017-09-21] MEDS: ACETAMINOPHEN 325 MG TABLET (FP) PO PRN (02:05)
[2017-09-21] MEDS: HEPARIN NA (PORCINE) 5,000 UNITS/ML 1ML VIAL SQ SCH ×3 (05:34→21:24)
[2017-09-21] MEDS: GABAPENTIN 300 MG CAPSULE (FP) PO SCH ×2 (05:35→13:12)
[2017-09-21] MEDS ORDERED: ACETAMINOPHEN 325 MG TABLET (FP) PO ONE (05:43)
[2017-09-21] MEDS: INSULIN SLIDING SCALE (NOVOLOG) 1 VIAL SQ SCH ×4 (06:14→22:00)
[2017-09-21 08:50] LABS: ANION GAP 12 (8-16); BLOOD UREA NITROGEN 32 mg/dL (7-18); CALCIUM 7.8 mg/dL (8.5-10.1); CHLORIDE 107 mmol/L (98-107); CO2 20 mmol/L (21-32); CREATININE 1.9 mg/dL (0.55-1.02); GLUCOSE,RANDOM 167 mg/dL (74-106); POTASSIUM 4.2 mmol/L (3.5-5.1); SODIUM 139 mmol/L (136-145)
[2017-09-21] MEDS ORDERED: PT OWN MED DRAWER 7, Y5N ONE ×2 (09:09→13:20)
[2017-09-21] MEDS ORDERED: cefTRIAXone SODIUM 1 GM VIAL ONE (09:09)
[2017-09-21] MEDS ORDERED: DEXTROSE 5%-WATER - 50 ML IVPB ONE (09:09)
[2017-09-21] MEDS: NYSTATIN 500,000 UNITS/5 ML SUSPENSION PO SCH ×4 (09:27→23:37)
[2017-09-21] MEDS: PHENobarbital 30 MG TABLET PO SCH ×2 (09:30→21:25)
[2017-09-21] MEDS: amLODIPine BESYLATE 5 MG TABLET (FP) PO SCH (09:30)
[2017-09-21 09:34] LABS: HEMATOCRIT 42.8 % (32.4-45.2); HEMOGLOBIN 14.1 GM/dL (10.7-15.3); MCH 32.3 pg (25.7-33.7); MCHC 32.9 g/dl (32.0-36.0); MEAN CELL VOLUME 98.2 fl (80-96); PLATELET COUNT 171 K/MM3 (134-434); RBC 4.36 M/mm3 (3.60-5.2); RDW 13.4 % (11.6-15.6); WHITE BLOOD COUNT 18.3 K/mm3 (4.0-10.0)
[2017-09-21] MEDS ORDERED: CEFTRIAXONE 1 GM in DEXTROSE 5%-WATER - 50 ML IVPB SCH (10:00)
[2017-09-21] MEDS ORDERED: SODIUM CHLORIDE 1,000 ML IV STA (10:44)
[2017-09-21] MEDS ORDERED: SODIUM CHLORIDE 1,000 ML IV SCH ×2 (10:45→18:30)
--- NOTE | 2017-09-21 10:50 | CONSULT ---
Consult Consult Specialty:: Nephrology Reason for Consultation:: Acute kidney injury - History of Present Illness History of Present Illness: Briefly, 62 yo F h/o HTN, CVA, HLD, CVA, Seizure disorder, morbid obesity s/p gastric sleeve admitted to the hospital for n/v and later found to have ochoa sensitive E. Coli UTI. Patient had normal Cr 0.6 on admission but has been worsening since admission day 2 and is now at 1.9. She spiked fevers this morning despite starting rocephin yesterday morning. Fluid was restarted this morning in light of sepsis. Denies chills, chest pain, shortness of breath, dyspnea, headache, urinary or bowel sx. 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 Cardio/Vascular: Yes: HTN, Hyperlipdemia Endocrine: Yes: Diabetes Mellitus, Other (obesity) Additional Medical History: cerebral aneursym rupture 10 years ago - Alcohol/Substance Use Hx Alcohol Use: No - Smoking History Smoking history: Never smoked Have you smoked in the past 12 months: No - Social History Usual Living Arrangement: With Child Home Medications - Allergies Allergies/Adverse Reactions: Allergies Allergy/AdvReac Type Severity Reaction Status Date / Time Penicillins Allergy Intermediate Rash Verified 09/21/17 12:49 levetiracetam [From Keppra] Allergy Swelling Verified 09/17/17 19:53 morphine Allergy Itching Verified 09/17/17 19:53 hydromorphone HCl AdvReac Itching Verified 09/17/17 19:53 [From Dilaudid] - Home Medications Home Medications: Ambulatory Orders Amlodipine Besylate 5 mg PO DAILY 11/16/16 Metoprolol Succinate [Toprol Xl] 100 mg PO BID 11/16/16 Atorvastatin Ca [Lipitor] 40 mg PO HS 11/17/16 Famotidine [Pepcid] 20 mg PO BID #60 tablet 11/17/16 Glipizide 5 mg PO DAILY 11/17/16 Lisinopril [Zestril] 5 mg PO DAILY 11/17/16 Phenobarbital 97.2 mg PO BID 11/17/16 Gabapentin [Neurontin -] 300 mg PO Q8H 09/17/17 Review of Systems - Review of Systems Constitutional: reports: Fever Eyes: reports: No Symptoms HENT: reports: Difficult Swallowing Cardiovascular: denies: Chest Pain, Palpitations, Shortness of Breath Respiratory: denies: Wheezing Gastrointestinal: denies: Abdominal Pain, Constipation, Diarrhea, Melena Genitourinary: reports: No Symptoms Physical Exam Vital Signs: Vital Signs Temperature 99.5 F 09/21/17 08:00 Pulse Rate 80 09/21/17 08:00 Respiratory Rate 20 09/21/17 09:00 Blood Pressure 101/53 09/21/17 08:00 O2 Sat by Pulse Oximetry (%) 93 L 09/21/17 09:00 Constitutional: Yes: No Distress, Calm, Obese, Pallor Cardiovascular: Yes: Regular Rate and Rhythm Respiratory: Yes: CTA Bilaterally Gastrointestinal: Yes: Normal Bowel Sounds, Abdomen, Obese. No: Tenderness Extremities: No: Calf Tenderness Edema: No Labs: CBC, BMP 09/21/17 05:50 09/21/17 05:35 Imaging - Results X-ray: Report Reviewed, Image Reviewed Cat Scan: Report Reviewed, Image Reviewed Assessment/Plan 62 yo F admitted for n/v and UTI, now have BELEM. Sepsis 2/2 UTI, r/o pulmonary source BELEM likely pre-renal from sepsis Seizure disorder Prolonged QTc - ordered CXR and lactic acid, Cont. abx * consider ID consult - Pt is volume down as evidenced by uptrending specific gravity and BUN, from both sensible and insensible losses - Considering her body habitus, increase fluid resust. 1L Bolus NS + maintainence NS @125cc - Stat renal U/S and lytes - Avoid nephrotoxins to allow max afferent renal aterioles dilation - Trend Cr Visit type - Emergency Visit Emergency Visit: No - New Patient This patient is new to me today: Yes Date on this admission: 09/21/17 - Critical Care Critical Care patient: No
[2017-09-21 11:40] LABS: PLATELET ESTIMATE NORMAL
[2017-09-21] MEDS ORDERED: INSULIN (NOVOLOG) ASPART 100 UNITS/ML 10ML VIAL ONE (11:45)
--- NOTE | 2017-09-21 13:01 | CONSULT ---
Consult Consult Specialty:: PULMONARY/CCM Referred by:: NISHA Freeman Reason for Consultation:: sepsis - History of Present Illness Chief Complaint: nausea/vomiting History of Present Illness: 62yo female with h/o HTN, hyperlipidemia, DM, CKD, seizure disorder, h/o gastric sleeve who was admitted with nausea and vomiting. Hospital course significant for acute renal failure and increased urinary frequency, found to have E coli in urine culture with initial negative urinalysis. Repeat urinalysis suggestive of UTI. She was febrile to 103 overnight, was given ceftriaxone earlier in the day, developed a diffuse rash mostly on her chest. Denies chest pain. No abdominal pain or diarrhea. No shortness of breath, cough or wheezing. Lactate now elevated. No pryor this admission. Denies recent antibiotics. 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 - Alcohol/Substance Use Hx Alcohol Use: No - Smoking History Smoking history: Never smoked Have you smoked in the past 12 months: No - Social History Usual Living Arrangement: With Child Home Medications - Allergies Allergies/Adverse Reactions: Allergies Allergy/AdvReac Type Severity Reaction Status Date / Time Penicillins Allergy Intermediate Rash Verified 09/21/17 12:49 levetiracetam [From Keppra] Allergy Swelling Verified 09/17/17 19:53 morphine Allergy Itching Verified 09/17/17 19:53 hydromorphone HCl AdvReac Itching Verified 09/17/17 19:53 [From Dilaudid] - Home Medications Home Medications: Ambulatory Orders Amlodipine Besylate 5 mg PO DAILY 11/16/16 Metoprolol Succinate [Toprol Xl] 100 mg PO BID 11/16/16 Atorvastatin Ca [Lipitor] 40 mg PO HS 11/17/16 Famotidine [Pepcid] 20 mg PO BID #60 tablet 11/17/16 Glipizide 5 mg PO DAILY 11/17/16 Lisinopril [Zestril] 5 mg PO DAILY 11/17/16 Phenobarbital 97.2 mg PO BID 11/17/16 Gabapentin [Neurontin -] 300 mg PO Q8H 09/17/17 Review of Systems - Review of Systems Constitutional: reports: Chills, Fever. denies: Weakness Eyes: denies: Recent Change in Vision HENT: denies: Nasal Congestion, Throat Pain Neck: denies: Stiffness, Tenderness Cardiovascular: denies: Chest Pain, Edema, Palpitations, Shortness of Breath Respiratory: denies: Cough, SOB, Wheezing Gastrointestinal: reports: Nausea, Vomiting. denies: Abdominal Pain, Diarrhea Genitourinary: reports: Frequency Neurological: denies: Dizziness, Headache Endocrine: denies: Unexplained Weight Loss Physical Exam Vital Signs: Vital Signs Temperature 98.5 F 09/21/17 11:49 Pulse Rate 75 09/21/17 11:49 Respiratory Rate 19 09/21/17 11:49 Blood Pressure 116/70 09/21/17 11:49 O2 Sat by Pulse Oximetry (%) 93 L 09/21/17 09:00 Constitutional: Yes: Calm Eyes: Yes: Conjunctiva Clear, EOM Intact HENT: Yes: Atraumatic, Normocephalic Neck: Yes: Supple, Trachea Midline Cardiovascular: Yes: Regular Rate and Rhythm Respiratory: Yes: Regular, Diminished (decreased breath sounds at the bases) Gastrointestinal: Yes: Normal Bowel Sounds, Soft. No: Tenderness Edema: No Neurological: Yes: Alert, Oriented Labs: CBC, BMP 09/21/17 05:50 09/21/17 05:35 Imaging - Results Chest X-ray: Report Reviewed, Image Reviewed (no infiltrates) Problem List - Problems (1) UTI (urinary tract infection) Code(s): N39.0 - URINARY TRACT INFECTION, SITE NOT SPECIFIED (2) Sepsis Code(s): A41.9 - SEPSIS, UNSPECIFIED ORGANISM (3) Acute kidney injury Code(s): N17.9 - ACUTE KIDNEY FAILURE, UNSPECIFIED (4) Diabetes Code(s): E11.9 - TYPE 2 DIABETES MELLITUS WITHOUT COMPLICATIONS Qualifiers: Diabetes mellitus type: type 2 Chronic kidney disease stage: stage 1 (5) Hyperlipidemia Code(s): E78.5 - HYPERLIPIDEMIA, UNSPECIFIED Qualifiers: Hyperlipidemia type: mixed hyperlipidemia Qualified Code(s): E78.2 - Mixed hyperlipidemia (6) Hypertension Code(s): I10 - ESSENTIAL (PRIMARY) HYPERTENSION Qualifiers: Hypertension type: essential hypertension Qualified Code(s): I10 - Essential (primary) hypertension (7) Lactic acidosis Code(s): E87.2 - ACIDOSIS Assessment/Plan UTI Sepsis Lactic Acidosis Acute Kidney Injury HTN DM Hyperlipidemia - IV antibiotics - f/u cultures - IV benadryl for drug rash - IVF resuscitation - monitor urine output, creatinine - renal/bladder ultrasound - trend lactate - O2 as needed - DVT prophylaxis - appear clinically stable at this time and can continue monitoring on floor, please call if any change in clinical condition Thank you for this consult Alfonso Farris MD
[2017-09-21] MEDS: LORATADINE 10 MG TABLET PO SCH (14:02)
--- NOTE | 2017-09-21 14:36 | PN ---
Teaching Attending Note Name of Resident: Odilon Clinton (Nephrology) ATTENDING PHYSICIAN STATEMENT I saw and evaluated the patient. I reviewed the resident's note and discussed the case with the resident. I agree with the resident's findings and plan as documented. SUBJECTIVE: Nephrology Pt is a 62 year old female with pmhx of HTN, obesity, CVA, and CKD who presents to the ER with nausea and vomiting. She was found to have a UTI and was treated with antibiotics. I was called to evaluate her for elevated creatinine. She has history of CKD and she did require 5 days of hemodiaysis in 2005 when she was in [place]. 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 I spoke to her daughter who assisted with history. She developed a rash after getting ceftriaxone. Pt was also found to be hypotensive this morning and has been having fevers. She denies dysuria or hematuria. pmhx obesity, htn dm epilepsy cva pshx gastric sleeve allergies keppra morphine hydromorphone social denies ros rash family hx denies Current Medications Generic Name Dose Route Start Last Admin Trade Name Freq PRN Reason Stop Dose Admin Acetaminophen 650 mg 09/21/17 02:03 09/21/17 02:05 Tylenol - PO 650 mg Q6H PRN Administration FEVER Amlodipine Besylate 5 mg 09/18/17 10:00 09/21/17 09:30 Norvasc - PO 5 mg DAILY PÉREZ Administration Atorvastatin Calcium 40 mg 09/18/17 22:00 09/20/17 21:04 Lipitor - PO 40 mg HS PÉREZ Administration Diphenhydramine HCl 25 mg 09/21/17 12:48 Benadryl Injection - IVPUSH Q6H PRN FOR ITCHING Gabapentin 300 mg 09/18/17 06:00 09/21/17 13:12 Neurontin - PO Not Given TID PÉREZ Heparin Sodium (Porcine) 5,000 unit 09/19/17 22:00 09/21/17 13:12 Heparin - SQ 5,000 unit TID PÉREZ Administration Sodium Chloride 1,000 mls @ 125 mls/hr 09/21/17 10:45 09/21/17 11:50 Normal Saline - IV 125 mls/hr ASDIR PÉREZ Administration Insulin Aspart 1 vial 09/18/17 07:00 09/21/17 11:51 Novolog Vial Sliding Scale - SQ 2 unit ACHS PÉREZ Administration Protocol Loratadine 10 mg 09/21/17 13:30 09/21/17 14:02 Claritin - PO 10 mg DAILY PÉREZ Administration Metoprolol Succinate 100 mg 09/18/17 10:00 09/21/17 09:30 Toprol Xl - PO Not Given BID PÉREZ Nystatin 500,000 units 09/21/17 09:30 09/21/17 11:51 Nystatin Oral Suspension - PO 500,000 units Q6HPO PÉREZ Administration Phenobarbital 90 mg 09/18/17 14:58 09/21/17 09:30 Phenobarbital - PO 90 mg BID PÉREZ Administration Zinc Acetate/Diphenhydramine 1 applic 09/21/17 12:45 Benadryl 2% Cream TP DAILY COUNT INCLUDES THE [facility] Last Vital Signs Temp Pulse Resp BP Pulse Ox 97.7 F 71 19 127/63 93 L 09/21/17 13:58 09/21/17 13:58 09/21/17 13:58 09/21/17 13:58 09/21/17 09:00 Selected Entries 09/21/17 09/21/17 09/21/17 02:05 03:06 04:02 Temperature 104.7 F H 103.1 F H 101.0 F H Blood Pressure 09/21/17 09/21/17 08:00 10:00 Temperature Blood Pressure 101/53 109/50 Laboratory Tests 11/18/16 09/17/17 09/17/17 06:00 21:00 21:30 WBC BUN Creatinine 1.4 H 0.6 Lactic Acid Urine Protein Urine Blood Acetone, Qual Negative L 09/18/17 09/19/17 09/19/17 05:52 09:25 09:25 WBC 6.1 D BUN Creatinine 1.2 H 1.2 H Lactic Acid Urine Protein Urine Blood Acetone, Qual 09/20/17 09/20/17 09/20/17 06:30 15:30 16:00 WBC BUN 28 H Creatinine 1.4 H 1.6 H Lactic Acid Urine Protein Negative Urine Blood Negative Acetone, Qual 09/21/17 09/21/17 09/21/17 05:35 05:50 11:30 WBC 18.3 H D BUN 32 H Creatinine 1.9 H Lactic Acid 3.0 H* Urine Protein Urine Blood Acetone, Qual cardio s1s2 pulm clear GI soft, obese ext trace edema neuro awake, pre-existing deficit skin rash circ pos pulses Impression 1. BELEM 2. CKD 3. sepsis 4. hypotension 5. rash 6. possible drug reaction 7. obesity 8. DM 9. hx htn 1o. lactic acidosis Plan - send ua and lytes to calc fena - check renal ultrasound - start fluids - ID eval, follow cultures, renal dose all abx - stop lisinopril - hold norvasc as she is hypotensive - critical care eval called - check urine eos - will send renal workup - will follow Dr Mejia
[2017-09-21 14:55] LABS: URINE APPEARANCE CLOUDY; URINE BILIRUBIN NEGATIVE (<2.0 mg/dL); URINE COLOR DKYELLOW; URINE GLUCOSE (UA) NEGATIVE (NEGATIVE); URINE KETONE NEGATIVE (NEGATIVE); URINE NITRITE NEGATIVE (NEGATIVE); URINE UROBILINOGEN NEGATIVE mg/dL (0.2-1.0)
[2017-09-21 14:56] LABS: URINE LEUK ESTERASE 3+ (NEGATIVE); URINE PROTEIN 1+ (NEGATIVE)
--- NOTE | 2017-09-21 14:58 | PN ---
Physical Exam: SUBJECTIVE: Patient seen and examined. She complaints of itching to chest and arms. She had ams this morning now improved Events: - Febrile all night t max 104.7 - Hypotensive this AM, s/p 2L bolus, bp stable - Rash to chest and arms, possible to ceftriaxone - Lactic acid 3 OBJECTIVE: Vital Signs Period Temp Pulse Resp BP Sys/Smith Pulse Ox Last 24 Hr 97.7 F-104.7 F 65-125 17-22 101-194/49-71 93-95 PE Neuro: alert, awake, cn 2-12intact Pulm: CTA anteriorly CV: s1 s2 rrr Abd: s nt nd +bs Ext: warm, no le edema SKin: chest and b/l arm and low back erythema rash itching Laboratory Results - last 24 hr 09/21/17 09/21/17 09/21/17 05:35 05:37 05:50 WBC 18.3 H D RBC 4.36 D Hgb 14.1 D Hct 42.8 D MCV 98.2 H MCH 32.3 MCHC 32.9 RDW 13.4 Plt Count 171 MPV 12.0 H D Neutrophils % No Result Required. Neutrophils % (Manual) 77.8 Band Neutrophils % 13.1 Lymphocytes % No Result Required. Lymphocytes % (Manual) 4.1 L Monocytes % (Manual) 3 L Eosinophils % (Manual) 0.0 Basophils % (Manual) 0.0 Myelocytes % (Man) 0 Promyelocytes % (Man) 0 Blast Cells % (Manual) 0 Nucleated RBC % 0 Metamyelocytes 0 Platelet Estimate Normal Sodium 139 Potassium 4.2 Chloride 107 Carbon Dioxide 20 L Anion Gap 12 BUN 32 H Creatinine 1.9 H POC Glucometer 145 Random Glucose 167 H Lactic Acid Calcium 7.8 L Urine Color Urine Appearance Urine pH Ur Specific [place] Urine Protein Urine Glucose (UA) Urine Ketones Urine Blood Urine Nitrite Urine Bilirubin Urine Urobilinogen Ur Leukocyte Esterase Urine WBC (Auto) Urine RBC (Auto) Ur Epithelial Cells Urine Bacteria Urine Mucus Ur Random Sodium Ur Random Potassium Ur Random Chloride Urine Creatinine 09/21/17 09/21/17 09/21/17 11:30 11:32 13:00 WBC RBC Hgb Hct MCV MCH MCHC RDW Plt Count MPV Neutrophils % Neutrophils % (Manual) Band Neutrophils % Lymphocytes % Lymphocytes % (Manual) Monocytes % (Manual) Eosinophils % (Manual) Basophils % (Manual) Myelocytes % (Man) Promyelocytes % (Man) Blast Cells % (Manual) Nucleated RBC % Metamyelocytes Platelet Estimate Sodium Potassium Chloride Carbon Dioxide Anion Gap BUN Creatinine POC Glucometer 218 Random Glucose Lactic Acid 3.0 H* Calcium Urine Color Urine Appearance Urine pH Ur Specific [place] Urine Protein Urine Glucose (UA) Urine Ketones Urine Blood Urine Nitrite Urine Bilirubin Urine Urobilinogen Ur Leukocyte Esterase Urine WBC (Auto) Urine RBC (Auto) Ur Epithelial Cells Urine Bacteria Urine Mucus Ur Random Sodium 31 Ur Random Potassium 46.8 Ur Random Chloride 55 Urine Creatinine 300.0 Active Medications Generic Name Dose Route Start Last Admin Trade Name Freq PRN Reason Stop Dose Admin Acetaminophen 650 mg 09/21/17 02:03 09/21/17 02:05 Tylenol - PO 650 mg Q6H PRN Administration FEVER Atorvastatin Calcium 40 mg 09/18/17 22:00 09/20/17 21:04 Lipitor - PO 40 mg HS PÉREZ Administration Diphenhydramine HCl 25 mg 09/21/17 12:48 Benadryl Injection - IVPUSH Q6H PRN FOR ITCHING Gabapentin 300 mg 09/18/17 06:00 09/21/17 13:12 Neurontin - PO Not Given TID PÉREZ Heparin Sodium (Porcine) 5,000 unit 09/19/17 22:00 09/21/17 13:12 Heparin - SQ 5,000 unit TID PÉREZ Administration Sodium Chloride 1,000 mls @ 125 mls/hr 09/21/17 10:45 09/21/17 11:50 Normal Saline - IV 125 mls/hr ASDIR PÉREZ Administration Insulin Aspart 1 vial 09/18/17 07:00 09/21/17 11:51 Novolog Vial Sliding Scale - SQ 2 unit ACHS PÉREZ Administration Protocol Loratadine 10 mg 09/21/17 13:30 09/21/17 14:02 Claritin - PO 10 mg DAILY PÉREZ Administration Nystatin 500,000 units 09/21/17 09:30 09/21/17 11:51 Nystatin Oral Suspension - PO 500,000 units Q6HPO PÉREZ Administration Phenobarbital 90 mg 09/18/17 14:58 09/21/17 09:30 Phenobarbital - PO 90 mg BID PÉREZ Administration Zinc Acetate/Diphenhydramine 1 applic 09/21/17 12:45 09/21/17 14:34 Benadryl 2% Cream TP 1 applic DAILY PÉREZ Administration Assessment: 62 year old female with pmhx of DM II, HTN, morbid obesity, cholecystectomy, gastric sleeve 2017, epilepsy (last seizure 4 years ago) presented with nausea, vomiting. Plan: 1. Sepsis d/t e coli uti - Blood cx pending - s/p 2L - IVF 125cc/hr - Check lactic acid @1530 - Stop ceftriaxone for possible pcn allergy - ID consulted - CC eval appreciated 2. BELEM on CKD - Cr rising - Previous hx of HD in 2005 - Obtain kidney us, urine studies, urine eos(interstitial nephritis) renal work up - D/w Renal 3. Nausea/vomiting - Resolved - Due to previous gastric surgery obtain CTAP w/ po contrast - Tolerating reg diet 4. Prolonged Qtc - Stop compazine, protonix, meclazine - Improved on repeat EKG 5. Morbid obesity - s/p gastric sleeve 6. HTN - DC metoprolol and norvasc for sepsis, resume when stable - Lisinopril on hold for BELEM 7. Epilepsy - Phenobarbital 8. Dizziness, mild headache, persists - Head CT with no acute changes, shows chronic left ERNESTO infarct - Unclear why not on daily ASA - ECHO nml lv size, fxn, EF 55-60%, mild MR 9. UTI - See above - Repeat ur cx - Maintain pryor 10. DM II, neuropathy - ISS, BGM ACHS - Gabapetin 11. DVT - Heparin sq Visit type - Emergency Visit Emergency Visit: Yes ED Registration Date: 09/18/17 Care time: The patient presented to the Emergency Department on the above date and was hospitalized for further evaluation of their emergent condition. - New Patient This patient is new to me today: No - Critical Care Critical Care patient: Yes Total Critical Care Time (in minutes): 37 Critical Care Statement: The care of this patient involved high complexity decision making to prevent further life threatening deterioration of the patient 's condition and/or to evaluate & treat vital organ system(s) failure or risk of failure.
[2017-09-21 14:59] LABS: EPI CELLS RARE /HPF (FEW); URINE HYALINE CAST 3 /lpf; URINE MUCUS RARE
--- NOTE | 2017-09-21 16:50 | CON.ID ---
Consult Consult Specialty:: Infectious disease Referred by:: Eufemia Freeman Reason for Consultation:: Sepsis 2/2 UTI - History of Present Illness History of Present Illness: The patient is a 62 yo cambodian speaking f w/ PMH HTN, HLD, CVA, seizures who was admitted for nausea and vomiting after eating pizza. Her nausea and vomiting have since resolved. Admission Ucx grew pansensitive ecoli. When she was treated with ceftriaxone for presumed UTI, the patient developed hives and itching. She began to spike fevers overnight (Tmax 104.7). Repeat BCx and UCx were drawn. In addition to this, the patient also had episodes of hypotension. Patient received 2L IVF. Rash and itching persisted through the patient's second dose of ceftriaxone. Patient currently feels well, but continues to complain of redness, rash and itching. We were called to evaluate the patient for alternative ABX therapy in the setting of sepsis 2/2 UTI. 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 - Alcohol/Substance Use Hx Alcohol Use: No - Smoking History Smoking history: Never smoked Have you smoked in the past 12 months: No - Social History Usual Living Arrangement: With Child Home Medications - Allergies Allergies/Adverse Reactions: Allergies Allergy/AdvReac Type Severity Reaction Status Date / Time Penicillins Allergy Intermediate Rash Verified 09/21/17 12:49 levetiracetam [From Keppra] Allergy Swelling Verified 09/17/17 19:53 morphine Allergy Itching Verified 09/17/17 19:53 hydromorphone HCl AdvReac Itching Verified 09/17/17 19:53 [From Dilaudid] - Home Medications Home Medications: Ambulatory Orders Amlodipine Besylate 5 mg PO DAILY 11/16/16 Metoprolol Succinate [Toprol Xl] 100 mg PO BID 11/16/16 Atorvastatin Ca [Lipitor] 40 mg PO HS 11/17/16 Famotidine [Pepcid] 20 mg PO BID #60 tablet 11/17/16 Glipizide 5 mg PO DAILY 11/17/16 Lisinopril [Zestril] 5 mg PO DAILY 11/17/16 Phenobarbital 97.2 mg PO BID 11/17/16 Gabapentin [Neurontin -] 300 mg PO Q8H 09/17/17 Review of Systems - Review of Systems Constitutional: reports: Chills, Fever HENT: denies: Difficult Swallowing, Mouth Swelling, Throat Pain Cardiovascular: denies: Chest Pain, Palpitations, Shortness of Breath Respiratory: denies: Cough, Hemoptysis, SOB, SOB on Exertion, Wheezing Gastrointestinal: denies: Abdominal Pain, Constipation, Diarrhea, Nausea, Vomiting Integumentary: reports: Erythema, Pruritis, Rash. denies: Bruising Physical Exam Vital Signs: Vital Signs Temperature 98.6 F 09/21/17 15:52 Pulse Rate 74 09/21/17 15:52 Respiratory Rate 18 09/21/17 15:52 Blood Pressure 133/64 09/21/17 15:52 O2 Sat by Pulse Oximetry (%) 93 L 09/21/17 09:00 Constitutional: Yes: Well Nourished, No Distress, Calm HENT: Yes: Atraumatic, Normocephalic Cardiovascular: Yes: Regular Rate and Rhythm, S1, S2. No: JVD, Gallop, Murmur, Rub Respiratory: Yes: Regular, CTA Bilaterally Gastrointestinal: Yes: Normal Bowel Sounds, Soft Integumentary: Yes: Erythema, Rash (The area around the patient's neck is erythemaous, with a deep red color. A similar rash is seen over the patient's arms, legs and stomach. There are excoriations seen over the patient's stomach and legs.) Neurological: Yes: Alert, Oriented Psychiatric: Yes: Alert, Oriented Labs: CBC, BMP 09/21/17 05:50 09/21/17 05:35 Assessment/Plan The patient is a 62 yo f w/ PMH HTN, CVA, seizures who was admitted for nausea and vomiting, but now presents with a drug rash, high fevers and hypotension. #Rash, Fever, hypotension -Patient developed rash, swelling and itching after administration of ceftriaxone -it is unclear if her fever and hypotension is 2/2 to allergic reaction or sepsis 2/2 UTI. -patient has a rising lactic acidosis 3 -> 3.3 -Will cover her empirically for now until repeat UCx is back. ABX selection is difficult: -Qt prolonged (530 on admission, 484 2 days ago); unable to use flouroquinolones -patient allergic to ceftriaxone with active drug rash; unable to give cephalosporins, penicillins, carbapenems or aztreonam -Will dose the patient w/ 1.5mg/kg Gentamycin; 150mg once -will order Gentamycin level for the AM and dose accordingly -Will give the patient Vancomycin 1250mg once -will order vancomycin level in am -Patient s/p 2L IVF and currently being hydrated w/ NS@125 -nephrology aware of this plan -ordered EKG in the AM to assess QTc and possibly switch to quinolone -will follow -Case d/w Dr. Villatoro
[2017-09-21] MEDS ORDERED: VANCOMYCIN 1,250 MG in DEXTROSE 5%-WATER - 250 ML IVPB ONE (17:29)
[2017-09-21] MEDS ORDERED: GENTAMICIN INJECTION 150 MG in DEXTROSE 5%-WATER - 250 ML IVPB SCH (17:45)
--- NOTE | 2017-09-21 18:07 | PN ---
Teaching Attending Note Name of Resident: Oscar Franz ATTENDING PHYSICIAN STATEMENT I saw and evaluated the patient. I reviewed the resident's note and discussed the case with the resident. I agree with the resident's findings and plan as documented. 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 she developed some itchiness after ceftriaxone yesterday overnight fever to 104.7- fluids given, cultures drawn, wbc this am 18.3 with lactic acid of 3 given rocephin this am with diffuse itchy rash on chest,arms and legs some swelling under her eyes seen by renal noted to be hypotensive, bolused 2 liters nss and placed on IVF asked to see for possible sepsis she is alert s/p itchiness +UA, urine culture on admission ecoli pansensitive OBJECTIVE: Vital Signs Period Temp Pulse Resp BP Sys/Smith Pulse Ox Last 24 Hr 97.7 F-104.7 F 65-125 16-22 101-194/49-85 93-95 facial swelling under her eyes no conjuctivitis, no oral lesions cor-rrr lungs clear abd soft,nt ext no edema, minimal erythema at left antecubital area diffuse erythema of the skin arms/legs/chest no bullous lesions CBC, BMP 09/21/17 05:50 09/21/17 05:35 Microbiology 09/17/17 22:45 Urine - Urine Clean Catch Urine Culture - Final Escherichia Coli ASSESSMENT AND PLAN: possible sepsis with leukocytosis and lactic acidosis-and hypotension drug rash-ceftriaxone prolonged qt over .5 on admission- will avoid all betalactams given diffuse drug rash, avoid quinolones give prolonged qt vancomycin/gentamicin- carefully dosed for BELEM and weight (no other good options here) vanco/gent levels in am labs in am pryor ekg consider steroids for drug rash d/w hospitalist d/w Dr Mejia d/w son at bedside Problem List - Problems (1) Sepsis Code(s): A41.9 - SEPSIS, UNSPECIFIED ORGANISM (2) Drug rash Code(s): L27.0 - GEN SKIN ERUPTION DUE TO DRUGS AND MEDS TAKEN INTERNALLY (3) Acute kidney injury Code(s): N17.9 - ACUTE KIDNEY FAILURE, UNSPECIFIED (4) Lactic acidosis Code(s): E87.2 - ACIDOSIS
[2017-09-21] MEDS ORDERED: GENTAMICIN INJECTION 150 MG in DEXTROSE 5%-WATER - 250 ML IVPB ONE (18:29)
[2017-09-21] MEDS ORDERED: FAMOTIDINE 20 MG/50 ML IVPB 20 MG/50 ML MG IVPB ONE ×2 (18:45→21:30)
[2017-09-21] MEDS ORDERED: methylPREDNISolone NA SUCC 125 MG/2 ML VIAL IVPUSH ONE (18:45)
[2017-09-21] MEDS ORDERED: ACETAMINOPHEN 1000 MG/100 ML VIAL (NON FORMULARY) IVPB ONE (18:45)
[2017-09-21] MEDS: ATORVASTATIN CA 40 MG TABLET (FP) PO SCH (21:25)
[2017-09-22] MEDS: ACETAMINOPHEN 325 MG TABLET (FP) PO PRN ×4 (01:27→18:07)
[2017-09-22] MEDS: HEPARIN NA (PORCINE) 5,000 UNITS/ML 1ML VIAL SQ SCH ×3 (05:35→21:31)
[2017-09-22] MEDS: NYSTATIN 500,000 UNITS/5 ML SUSPENSION PO SCH ×4 (05:35→23:51)
[2017-09-22] MEDS: INSULIN SLIDING SCALE (NOVOLOG) 1 VIAL SQ SCH ×4 (06:27→21:46)
[2017-09-22 07:03] LABS: HEMATOCRIT 40.1 % (32.4-45.2); MCH 32.5 pg (25.7-33.7); MCHC 32.3 g/dl (32.0-36.0); MEAN CELL VOLUME 100.4 fl (80-96); MEAN PLT VOLUME 11.1 fl (7.5-11.1); PLATELET COUNT 127 K/MM3 (134-434); RDW 13.4 % (11.6-15.6); WHITE BLOOD COUNT 22.6 K/mm3 (4.0-10.0)
[2017-09-22 07:25] LABS: CHLORIDE 106 mmol/L (98-107); SODIUM 137 mmol/L (136-145)
[2017-09-22 07:35] LABS: ALBUMIN 2.6 g/dl (3.4-5.0); ALK PHOS 50 U/L (45-117); ANION GAP 11 (8-16); BILIRUBIN,TOTAL 0.4 mg/dL (0.2-1.0); BLOOD UREA NITROGEN 32 mg/dL (7-18); CALCIUM 7.6 mg/dL (8.5-10.1); CO2 20 mmol/L (21-32); CREATININE 2.1 mg/dL (0.55-1.02); GLUCOSE,RANDOM 139 mg/dL (74-106); SGPT/ALT 15 U/L (12-78); TOT PROT 5.9 g/dl (6.4-8.2)
[2017-09-22 07:37] LABS: POTASSIUM 4.8 mmol/L (3.5-5.1); SGOT/AST 13 U/L (15-37)
--- NOTE | 2017-09-22 07:50 | PN ---
Progress Note (short form) - Note Progress Note: Subjective: The patient was seen and examined at the bedside, she is awake but Now with rash which appears to be acute generalized exantematous pustulosis with maceration. Will start IV steroids. Continue Benadryl Tmax 103.7 Blood and urine cultures were sent yesterday Current Medications Generic Name Dose Route Start Last Admin Trade Name Freq PRN Reason Stop Dose Admin Acetaminophen 650 mg 09/21/17 02:03 09/22/17 06:26 Tylenol - PO 650 mg Q6H PRN Administration FEVER Atorvastatin Calcium 40 mg 09/18/17 22:00 09/21/17 21:25 Lipitor - PO 40 mg HS PÉREZ Administration Diphenhydramine HCl 25 mg 09/21/17 12:48 09/22/17 06:00 Benadryl Injection - IVPUSH 25 mg Q6H PRN Administration FOR ITCHING Gabapentin 300 mg 09/18/17 06:00 09/21/17 13:12 Neurontin - PO Not Given TID PÉREZ Heparin Sodium (Porcine) 5,000 unit 09/19/17 22:00 09/22/17 05:35 Heparin - SQ 5,000 unit TID PÉREZ Administration Sodium Chloride 1,000 mls @ 125 mls/hr 09/21/17 18:30 09/21/17 18:36 Normal Saline - IV 125 mls/hr ASDIR PÉREZ Administration Insulin Aspart 1 vial 09/18/17 07:00 09/22/17 06:27 Novolog Vial Sliding Scale - SQ Not Given ACHS PÉREZ Protocol Loratadine 10 mg 09/21/17 13:30 09/21/17 14:02 Claritin - PO 10 mg DAILY PÉREZ Administration Methylprednisolone Sodium Succinate 40 mg 09/22/17 09:00 Solu-Medrol - IVPUSH Q6H-IV PÉREZ Nystatin 500,000 units 09/21/17 09:30 09/22/17 05:35 Nystatin Oral Suspension - PO 500,000 units Q6HPO PÉREZ Administration Phenobarbital 90 mg 09/18/17 14:58 09/21/17 21:25 Phenobarbital - PO 90 mg BID PÉREZ Administration Zinc Acetate/Diphenhydramine 1 applic 09/21/17 12:45 09/21/17 14:34 Benadryl 2% Cream TP 1 applic DAILY PÉREZ Administration Objective: Vital Signs Period Temp Pulse Resp BP Sys/Smith Pulse Ox Last 24 Hr 97.7 F-103.7 F 63-104 16-20 104-160/48-105 93-96 Physical Exam: General: NAD, lethargic HEENT: periorbital edema. +thrush Lungs: CTA bilaterally Heart: RRR, S1S2 Abd: Soft, non-tender, Non-distended : Pryor catheter in place with clear, yellow urine Skin: chest with erythema and pustules with areas of maceration extending around the neck b/l. Erythema on trunk and upper extremities with pustules in the antecubital fossa. Left medial upper arm with darken red areas. Erythema extending to upper thighs. CBCD WBC 22.6 K/mm3 (4.0-10.0) H 09/22/17 05:35 RBC 4.00 M/mm3 (3.60-5.2) 09/22/17 05:35 Hgb 13.0 GM/dL (10.7-15.3) 09/22/17 05:35 Hct 40.1 % (32.4-45.2) 09/22/17 05:35 MCV 100.4 fl (80-96) H 09/22/17 05:35 MCHC 32.3 g/dl (32.0-36.0) 09/22/17 05:35 RDW 13.4 % (11.6-15.6) 09/22/17 05:35 Plt Count 127 K/MM3 (134-434) L D 09/22/17 05:35 MPV 11.1 fl (7.5-11.1) 09/22/17 05:35 CMP Sodium 137 mmol/L (136-145) 09/22/17 05:35 Potassium 4.8 mmol/L (3.5-5.1) 09/22/17 05:35 Chloride 106 mmol/L (98-107) 09/22/17 05:35 Carbon Dioxide 20 mmol/L (21-32) L 09/22/17 05:35 Anion Gap 11 (8-16) 09/22/17 05:35 BUN 32 mg/dL (7-18) H 09/22/17 05:35 Creatinine 2.1 mg/dL (0.55-1.02) H 09/22/17 05:35 Creat Clearance w eGFR 23.86 (>60) 09/22/17 05:35 Random Glucose 139 mg/dL (74-106) H 09/22/17 05:35 Calcium 7.6 mg/dL (8.5-10.1) L 09/22/17 05:35 Total Bilirubin 0.4 mg/dL (0.2-1.0) D 09/22/17 05:35 AST 13 U/L (15-37) L 09/22/17 05:35 ALT 15 U/L (12-78) 09/22/17 05:35 Alkaline Phosphatase 50 U/L (45-117) 09/22/17 05:35 Total Protein 5.9 g/dl (6.4-8.2) L 09/22/17 05:35 Albumin 2.6 g/dl (3.4-5.0) L 09/22/17 05:35 CARDIAC ENZYMES Creatine Kinase 321 IU/L (26-192) H 09/17/17 22:35 Troponin I < 0.02 ng/ml (0.00-0.05) 09/18/17 18:05 Microbiology 09/21/17 02:35 Blood - Peripheral Venous Blood Culture - Preliminary NO GROWTH OBTAINED AFTER 24 HOURS, INCUBATION TO CONTINUE FOR 4 DAYS. 09/21/17 02:35 Blood - Peripheral Venous Blood Culture - Preliminary NO GROWTH OBTAINED AFTER 24 HOURS, INCUBATION TO CONTINUE FOR 4 DAYS. 09/17/17 22:45 Urine - Urine Clean Catch Urine Culture - Final Escherichia Coli Assessment: This is a 62 year old female with PMHx of DM II, HTN, morbid obesity , cholecystectomy, gastric sleeve 2016, epilepsy (last seizure 4 years ago) presented with nausea, vomiting. Plan: 1) Acute generalized exanthematous pustulosis - Likely 2/2 Ceftriaxone - Maceration of skin - Will start systemic steroids - Benadryl for itching - Call placed to dermatology, awaiting call back 2) Severe sepsis 2/2 e.coli UTI - Lactic acid remains elevated, continue to trend - Give NS bolus - Increase fluids - Continue Vancomycin - Continue Gentamycin - Trend fever curve, Tylenol prn - Appreciate ID consult 3) BELEM on CKD - Hx of HD in 2005 - Cr continues to rise, may be pre-renal 2/2 period of hypotension yesterday - Decreased urine output (500cc since pryor placed, accuracy of I&O?) - Increase IV fluids - F/u kidney ultrasound - Appreciate nephrology consult 4) Nausea/vomiting - Resolved 5) Prolonged qtc - Avoid all agents that prolong qtc 6) HTN - Hold 2/2 severe sepsis 7) Epilepsy - Continue Phenobarbital 8) DM - BGM ACHS - ISS ACHS 9) F/E/N: - Renal diet - Monitor electrolytes 10) Prophylaxis: - Heparin 5,000u sq tid 11) Dispo: - Requires continued inpatient care CODE STATUS: FULL CODE Visit type - Emergency Visit Emergency Visit: Yes ED Registration Date: 09/21/17 Care time: The patient presented to the Emergency Department on the above date and was hospitalized for further evaluation of their emergent condition. - New Patient This patient is new to me today: Yes Date on this admission: 09/22/17 - Critical Care Critical Care patient: No
[2017-09-22] MEDS ORDERED: SODIUM CHLORIDE 1,000 ML IV STA ×2 (08:44→08:45)
--- NOTE | 2017-09-22 09:55 | PN ---
Teaching Attending Note Name of Resident: Oscar Franz ATTENDING PHYSICIAN STATEMENT I saw and evaluated the patient. I reviewed the resident's note and discussed the case with the resident. I agree with the resident's findings and plan as documented. SUBJECTIVE: febrile overnight diffuse erythema of her skin OBJECTIVE: Vital Signs Period Temp Pulse Resp BP Sys/Smith Pulse Ox Last 24 Hr 97.7 F-103.7 F 63-104 16-20 104-160/48-105 94-96 no oral lesions cor-rrr lungs clear abd soft,nt no blisters some erosions around the back of her neck (present last night) some erosions of her skin at the neck (new) CBC, BMP 09/22/17 05:35 09/22/17 05:35 diff pending lfts normal Microbiology 09/21/17 13:00 Urine - Urine - Catheterized Urine Culture - Final NO GROWTH OBTAINED 09/21/17 02:35 Blood - Peripheral Venous Blood Culture - Preliminary NO GROWTH OBTAINED AFTER 24 HOURS, INCUBATION TO CONTINUE FOR 4 DAYS. 09/21/17 02:35 Blood - Peripheral Venous Blood Culture - Preliminary NO GROWTH OBTAINED AFTER 24 HOURS, INCUBATION TO CONTINUE FOR 4 DAYS. 09/17/17 22:45 Urine - Urine Clean Catch Urine Culture - Final Escherichia Coli ASSESSMENT AND PLAN: suspect this is all drug fever but cannot r/o sepsis vanc/gent by levels f/u cultures continue steroids needs aggressive IVF derm evaluation renal f/u Problem List - Problems (1) Sepsis Code(s): A41.9 - SEPSIS, UNSPECIFIED ORGANISM (2) Drug rash Code(s): L27.0 - GEN SKIN ERUPTION DUE TO DRUGS AND MEDS TAKEN INTERNALLY (3) Acute kidney injury Code(s): N17.9 - ACUTE KIDNEY FAILURE, UNSPECIFIED (4) Lactic acidosis Code(s): E87.2 - ACIDOSIS
[2017-09-22 10:21] VITALS: BMI 45.5
[2017-09-22] MEDS: methylPREDNISolone NA SUCC 40 MG/1 ML VIAL IVPUSH SCH ×3 (10:45→21:31)
[2017-09-22] MEDS ORDERED: VANCOMYCIN 1,000 MG in DEXTROSE 5%-WATER - 250 ML IVPB ONE (11:00)
[2017-09-22 11:01] LABS: ANISOCYTOSIS 1+; MACROCYTOSIS 1+; PLATELET ESTIMATE DECREASED
--- NOTE | 2017-09-22 11:12 | PN ---
Progress Note, Physician History of Present Illness: Infectious disease follow up: Patient seen and examined at bedside. The patient's skin continues to be erythematous and the top layer has started to separate. Patient also continues to spike fevers overnight. - Current Medication List Current Medications: Active Medications Acetaminophen (Tylenol -) 650 mg PO Q6H PRN PRN Reason: FEVER Last Admin: 09/22/17 06:26 Dose: 650 mg Atorvastatin Calcium (Lipitor -) 40 mg PO HS PÉREZ Last Admin: 09/21/17 21:25 Dose: 40 mg Diphenhydramine HCl (Benadryl Injection -) 25 mg IVPUSH Q6H PRN PRN Reason: FOR ITCHING Last Admin: 09/22/17 06:00 Dose: 25 mg Gabapentin (Neurontin -) 300 mg PO TID PÉREZ Last Admin: 09/21/17 13:12 Dose: Not Given Heparin Sodium (Porcine) (Heparin -) 5,000 unit SQ TID PÉREZ Last Admin: 09/22/17 05:35 Dose: 5,000 unit Sodium Chloride (Normal Saline -) 1,000 mls @ 125 mls/hr IV ASDIR PÉREZ Last Admin: 09/21/17 18:36 Dose: 125 mls/hr Vancomycin HCl 1,000 mg/ (Dextrose) 250 mls @ 166.667 mls/hr IVPB ONCE ONE PRN Reason: Protocol Stop: 09/22/17 12:29 Insulin Aspart (Novolog Vial Sliding Scale -) 1 vial SQ ACHS PÉREZ PRN Reason: Protocol Last Admin: 09/22/17 06:27 Dose: Not Given Loratadine (Claritin -) 10 mg PO DAILY [facility] Last Admin: 09/21/17 14:02 Dose: 10 mg Methylprednisolone Sodium Succinate (Solu-Medrol -) 40 mg IVPUSH Q6H-IV PÉREZ Last Admin: 09/22/17 10:45 Dose: 40 mg Nystatin (Nystatin Oral Suspension -) 500,000 units PO Q6HPO PÉREZ Last Admin: 09/22/17 05:35 Dose: 500,000 units Phenobarbital (Phenobarbital -) 90 mg PO BID PÉREZ Last Admin: 09/21/17 21:25 Dose: 90 mg Zinc Acetate/Diphenhydramine (Benadryl 2% Cream) 1 applic TP DAILY [facility] Last Admin: 09/21/17 14:34 Dose: 1 applic - Objective Vital Signs: Vital Signs Temperature 103.7 F H 09/22/17 06:00 Pulse Rate 63 09/22/17 06:00 Respiratory Rate 20 09/22/17 06:00 Blood Pressure 151/48 09/22/17 06:00 O2 Sat by Pulse Oximetry (%) 96 09/21/17 22:00 Constitutional: Yes: Well Nourished, No Distress, Calm Cardiovascular: Yes: Regular Rate and Rhythm, S1, S2. No: JVD, Gallop, Murmur, Rub Respiratory: Yes: Regular, CTA Bilaterally Gastrointestinal: Yes: Normal Bowel Sounds, Soft Integumentary: Yes: Other (The erythematous area around the neck and anticubital areas have worsened. The skin in these areas have started to separate and slough off. The patinet's lips are also dry and cracked this AM. No lesions in the mouth or on the conjuntiva.) Labs: CBC, BMP 09/22/17 05:35 09/22/17 05:35 Assessment/Plan The patient is a 62 yo f w/ PMH HTN, CVA, seizures who was admitted for nausea and vomiting, but now presents with a drug rash, high fevers and hypotension. #Rash, Fever, hypotension -Patient continuing to spike fevers and her rash is worse today. 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 -Patient on standing steroids per primary team -patient's lactic acidosis improving -Will cover her empirically for now until repeat UCx is back. ABX selection is difficult: -Qt prolonged (530 on admission, 484 2 days ago); unable to use flouroquinolones -patient allergic to ceftriaxone with active drug rash; unable to give cephalosporins, penicillins, carbapenems or aztreonam -s/p Gentamycin 150mg once yesterday -Gentamycin level elevated this AM, will hold today's dose. -vancomycin level in am 12; will dose w/ 1g vanc -Patient's urine output is low and requires more fluid resuscitation -f/u EKG in the AM to assess QTc -will follow -Case d/w Dr. Villatoro
[2017-09-22] MEDS: PHENobarbital 30 MG TABLET PO SCH ×2 (12:25→21:31)
[2017-09-22] MEDS: LORATADINE 10 MG TABLET PO SCH (12:25)
[2017-09-22] MEDS: SODIUM CHLORIDE 1,000 ML IV SCH ×3 (13:30→17:30)
[2017-09-22] MEDS ORDERED: SODIUM CHLORIDE 500 ML IV STA (14:41)
--- NOTE | 2017-09-22 15:52 | PN ---
Progress Note, Physician History of Present Illness: Pt seen and examined at bedside. She spiked fevers last night. Her skin rash is getting worse. She denies shortness of breath. She is out of bed to chair. She did require more fluid boluses. - Current Medication List Current Medications: Active Medications Acetaminophen (Tylenol -) 650 mg PO Q6H PRN PRN Reason: FEVER Last Admin: 09/22/17 12:24 Dose: 650 mg Atorvastatin Calcium (Lipitor -) 40 mg PO HS PÉREZ Last Admin: 09/21/17 21:25 Dose: 40 mg Chlorhexidine Gluconate (Hibiclens For Decolonization -) 1 applic TP HS PÉREZ Diphenhydramine HCl (Benadryl Injection -) 25 mg IVPUSH Q6H PRN PRN Reason: FOR ITCHING Last Admin: 09/22/17 06:00 Dose: 25 mg Fluocinonide (Lidex 0.05% Ointment -) 1 applic TP BID PÉREZ Gabapentin (Neurontin -) 300 mg PO TID PÉREZ Last Admin: 09/21/17 13:12 Dose: Not Given Heparin Sodium (Porcine) (Heparin -) 5,000 unit SQ TID PÉREZ Last Admin: 09/22/17 14:05 Dose: Not Given Sodium Chloride (Normal Saline -) 1,000 mls @ 150 mls/hr IV ASDIR PÉREZ Last Admin: 09/22/17 13:30 Dose: 150 mls/hr Sodium Chloride (Normal Saline -) 500 mls @ 250 mls/hr IV ASDIR STA Stop: 09/22/17 16:40 Insulin Aspart (Novolog Vial Sliding Scale -) 1 vial SQ ACHS PÉREZ PRN Reason: Protocol Last Admin: 09/22/17 14:03 Dose: Not Given Loratadine (Claritin -) 10 mg PO DAILY [facility] Last Admin: 09/22/17 12:25 Dose: 10 mg Methylprednisolone Sodium Succinate (Solu-Medrol -) 40 mg IVPUSH Q6H-IV PÉREZ Last Admin: 09/22/17 10:45 Dose: 40 mg Mupirocin (Bactroban Ointment (For Decolonization) -) 1 applic NS BID PÉREZ Stop: 09/27/17 21:59 Nystatin (Nystatin Oral Suspension -) 500,000 units PO Q6HPO PÉREZ Last Admin: 05/11/18 12:25 Dose: 500,000 units Phenobarbital (Phenobarbital -) 90 mg PO BID [facility] Last Admin: 09/22/17 12:25 Dose: 90 mg Zinc Acetate/Diphenhydramine (Benadryl 2% Cream) 1 applic TP DAILY [facility] Last Admin: 09/22/17 12:25 Dose: Not Given - Objective Vital Signs: Vital Signs Temperature 99.4 F 09/22/17 15:30 Pulse Rate 80 09/22/17 15:30 Respiratory Rate 20 09/22/17 15:30 Blood Pressure 140/94 09/22/17 15:30 O2 Sat by Pulse Oximetry (%) 96 09/22/17 09:00 Constitutional: Yes: Calm Eyes: Yes: Conjunctiva Clear Cardiovascular: Yes: S1, S2 Respiratory: Yes: CTA Bilaterally Gastrointestinal: Yes: Soft, Abdomen, Obese Genitourinary: Yes: Rodríguez Present Musculoskeletal: Yes: WNL Edema: No Integumentary: Yes: Erythema, Rash, Other (rash appears to be worsening) Neurological: Yes: Oriented, Pre-Existing Deficit Labs: CBC, BMP 09/22/17 05:35 09/22/17 05:35 - ....Imaging Ultrasound: Report Reviewed (kidney ultrasound) Problem List - Problems (1) Acute kidney injury Code(s): N17.9 - ACUTE KIDNEY FAILURE, UNSPECIFIED (2) Lactic acidosis Code(s): E87.2 - ACIDOSIS (3) Sepsis Code(s): A41.9 - SEPSIS, UNSPECIFIED ORGANISM (4) UTI (urinary tract infection) Code(s): N39.0 - URINARY TRACT INFECTION, SITE NOT SPECIFIED (5) Bariatric surgery status Code(s): Z98.84 - BARIATRIC SURGERY STATUS (6) Diabetes Code(s): E11.9 - TYPE 2 DIABETES MELLITUS WITHOUT COMPLICATIONS Qualifiers: Diabetes mellitus type: type 2 Chronic kidney disease stage: stage 1 (7) Hyperlipidemia Code(s): E78.5 - HYPERLIPIDEMIA, UNSPECIFIED Qualifiers: Hyperlipidemia type: mixed hyperlipidemia Qualified Code(s): E78.2 - Mixed hyperlipidemia (8) Hypertension Code(s): I10 - ESSENTIAL (PRIMARY) HYPERTENSION Qualifiers: Hypertension type: essential hypertension Qualified Code(s): I10 - Essential (primary) hypertension (9) Morbid (severe) obesity due to excess calories Code(s): E66.01 - MORBID (SEVERE) OBESITY DUE TO EXCESS CALORIES Assessment/Plan Current Medications Generic Name Dose Route Start Last Admin Trade Name Freq PRN Reason Stop Dose Admin Acetaminophen 650 mg 09/21/17 02:03 09/22/17 12:24 Tylenol - PO 650 mg Q6H PRN Administration FEVER Atorvastatin Calcium 40 mg 09/18/17 22:00 09/21/17 21:25 Lipitor - PO 40 mg HS PÉREZ Administration Chlorhexidine Gluconate 1 applic 09/22/17 22:00 Hibiclens For Decolonization - TP HS PÉREZ Diphenhydramine HCl 25 mg 09/21/17 12:48 09/22/17 06:00 Benadryl Injection - IVPUSH 25 mg Q6H PRN Administration FOR ITCHING Fluocinonide 1 applic 09/22/17 15:15 Lidex 0.05% Ointment - TP BID PÉREZ Gabapentin 300 mg 09/18/17 06:00 09/21/17 13:12 Neurontin - PO Not Given TID PÉREZ Heparin Sodium (Porcine) 5,000 unit 09/19/17 22:00 09/22/17 14:05 Heparin - SQ Not Given TID PÉREZ Sodium Chloride 1,000 mls @ 150 mls/hr 09/22/17 14:41 09/22/17 13:30 Normal Saline - IV 150 mls/hr ASDIR PÉREZ Administration Sodium Chloride 500 mls @ 250 mls/hr 09/22/17 14:41 Normal Saline - IV 09/22/17 16:40 ASDIR STA Insulin Aspart 1 vial 09/18/17 07:00 09/22/17 14:03 Novolog Vial Sliding Scale - SQ Not Given ACHS [facility] Protocol Loratadine 10 mg 09/21/17 13:30 09/22/17 12:25 Claritin - PO 10 mg DAILY PÉREZ Administration Methylprednisolone Sodium Succinate 40 mg 09/22/17 09:00 09/22/17 10:45 Solu-Medrol - IVPUSH 40 mg Q6H-IV PÉREZ Administration Mupirocin 1 applic 09/22/17 22:00 Bactroban Ointment (For Decolonization) - NS 09/27/17 21:59 BID PÉREZ Nystatin 500,000 units 09/21/17 09:30 09/22/17 12:25 Nystatin Oral Suspension - PO 500,000 units Q6HPO PÉREZ Administration Phenobarbital 90 mg 09/18/17 14:58 09/22/17 12:25 Phenobarbital - PO 90 mg BID PÉREZ Administration Zinc Acetate/Diphenhydramine 1 applic 09/21/17 12:45 09/22/17 12:25 Benadryl 2% Cream TP Not Given DAILY [facility] Laboratory Tests 09/17/17 09/21/17 09/21/17 21:30 13:00 14:00 WBC Urine Eosinophils Pending Ur Random Sodium 31 Gentamicin Trough Random Vancomycin Acetone, Qual Negative L BEBA M-Isaac YOLI Screen c-ANCA Proteinase 3 (PR3) p-ANCA Atypical p-ANCA Myeloperoxidase Ab Double Strand DNA Ab Glomerular Base Memb Ab Hep Bs Antigen Hep Bs Antibody Hep B Core Total Ab HCV Quantitation Hepatitis C RNA 09/22/17 09/22/17 09/22/17 05:35 08:10 08:10 WBC 22.6 H Urine Eosinophils Ur Random Sodium Gentamicin Trough 3.2 H* Random Vancomycin 11.517 Acetone, Qual BEBA M-Isaac YOLI Screen c-ANCA Proteinase 3 (PR3) p-ANCA Atypical p-ANCA Myeloperoxidase Ab Double Strand DNA Ab Glomerular Base Memb Ab Hep Bs Antigen Hep Bs Antibody Hep B Core Total Ab HCV Quantitation Hepatitis C RNA 09/22/17 09/22/17 08:10 08:10 WBC Urine Eosinophils Ur Random Sodium Gentamicin Trough Random Vancomycin Acetone, Qual BEBA M-Isaac Pending YOLI Screen Pending c-ANCA Pending Proteinase 3 (PR3) Pending p-ANCA Pending Atypical p-ANCA Pending Myeloperoxidase Ab Pending Double Strand DNA Ab Pending Glomerular Base Memb Ab Pending Hep Bs Antigen Pending Hep Bs Antibody Pending Hep B Core Total Ab Pending HCV Quantitation Pending Hepatitis C RNA Pending Impression 1. BELEM 2. CKD 3. sepsis 4. hypotension 5. rash 6. possible drug reaction 7. obesity 8. DM 9. hx htn 10. lactic acidosis 11. prolonged qt Plan - renal workup is in progress - cont with fluids - dermatology eval - rheum eval - hold Gent and check levels - repeat bmp in am and monitor urine output - FENa was about 0.14 percent which is consistent with pre-renal disease - follow urine eos - keep lisinopril on hold - transfer pt to ICU - follow serologies - monitor bp closely - continuous pulse ox - wbc and lactic acid is rising - pt did have renal failure that required HD in 2006, family are unaware of etiology - will follow closely - discussed with medical team - monitor qt, cardiology follow up
[2017-09-22] MEDS: FLUOCINONIDE 0.05% TOP OINT (60 GM TUBE) TP SCH ×2 (18:09→21:32)
[2017-09-22] MEDS ORDERED: ACETAMINOPHEN 325 MG TABLET (FP) PO PRN (18:14)
--- NOTE | 2017-09-22 18:27 | PN ---
Progress Note (short form) - Note Progress Note: This is a 62 year old female with PMHx of DM II, HTN, morbid obesity, cholecystectomy, gastric sleeve 2017, epilepsy (last seizure 4 years ago) presented to the ICU because of rash,fever and hypotension. Patient was started on Ceftriaxone 2 days ago for UTI. She has since started developing worsening rash and fever. Tmax 103. Patient lethargic, not offering any complaints to me at this time. Denies chest pain, sob, dizziness,nausea vomiting. Vitals: 117/53, 100% on 3L NC,92 HR, 20 RR Physical: Lethargic, in no acute distress Heart: RRR Lungs: CTA b/l Abd: NT, ND Skin: chest with erythema and maceration extending around neck. rash also under both armpits b/l, and between b/l upper thighs. : pryor EKG 09/22: NSR w/ 2nd degree AVB Mobitz type 2? Plan: #Rash/Fever/Hypotension -likely drug allergy to ceftriaxone/penicillin vs ? Sepsis 2/2 to UTI -concern for possible progression to camelia johnsons syndrome -tmax 103 -Benadryl PRN -IV steroids 40mgs q6 Medrol. -IV fluids NS @ 150ml/hour -bcx, ucx -Trend LA -Derm consulted -Lidex ointment -FU labs #New EKG changes -NSR w/ 2nd Degree AVB Mobitz 2 -Patient denies chest Pain, palpitations -Discussed EKG reading with Dr. Watts
[2017-09-22] MEDS ORDERED: ACETAMINOPHEN 1000 MG/100 ML VIAL (NON FORMULARY) IVPB ONE (19:18)
--- NOTE | 2017-09-22 20:32 | CONSULT ---
Consult Consult Specialty:: Pulm/CCM Reason for Consultation:: UTI; possible drug reaction - History of Present Illness Chief Complaint: Fatique History of Present Illness: 62yow with PMHx HTN, HLD, DM, CKD, seizure disorder, morbid obesity s/p gastric sleeve who was admitted with nausea and vomiting. She was found to have an E-coli UTI and BELEM. She was given Ceftriaxone for UTI and developed fever and acute rash on her trunk and arms which has progressively worsened. Required fluid boluses for hypotension. Derm consulted. Labs notable for WBC 22, 87% neuts, 2.4% eos, BUN/Creat 32/2.1, lactate 2.6. She was started on Benadryl, steroids and vanco IV. 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 In ICU somnolent, easily aroused, HR 82, BP 107/50, O2 sat 97% on 2l NC. No c/ o itching, burning or pain. 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 - Alcohol/Substance Use Hx Alcohol Use: No - Smoking History Smoking history: Never smoked Have you smoked in the past 12 months: No - Social History Usual Living Arrangement: With Child Home Medications - Allergies Allergies/Adverse Reactions: Allergies Allergy/AdvReac Type Severity Reaction Status Date / Time ceftriaxone Allergy Severe Rash Verified 09/21/17 19:05 levetiracetam [From Keppra] Allergy Swelling Verified 09/17/17 19:53 morphine Allergy Itching Verified 09/17/17 19:53 hydromorphone HCl AdvReac Itching Verified 09/17/17 19:53 [From Dilaudid] - Home Medications Home Medications: Ambulatory Orders Amlodipine Besylate 5 mg PO DAILY 11/16/16 Metoprolol Succinate [Toprol Xl] 100 mg PO BID 11/16/16 Atorvastatin Ca [Lipitor] 40 mg PO HS 11/17/16 Famotidine [Pepcid] 20 mg PO BID #60 tablet 11/17/16 Glipizide 5 mg PO DAILY 11/17/16 Lisinopril [Zestril] 5 mg PO DAILY 07/06/17 Phenobarbital 97.2 mg PO BID 11/17/16 Gabapentin [Neurontin -] 300 mg PO Q8H 09/17/17 Family Disease History - Family Disease History Family History: Unremarkable Physical Exam Vital Signs: Vital Signs Temperature 101.4 F H 09/22/17 18:00 Pulse Rate 91 H 09/22/17 18:00 Respiratory Rate 17 09/22/17 18:00 Blood Pressure 117/53 09/22/17 18:00 O2 Sat by Pulse Oximetry (%) 99 09/22/17 17:00 Intake & Output 09/19/17 09/20/17 09/21/17 09/22/17 23:59 23:59 23:59 23:59 Intake Total 1220 1916 4369 3525 Output Total 200 500 Balance 1220 1916 4169 3025 Weight 112.945 kg 120.4 g Constitutional: Yes: Obese Eyes: Yes: Conjunctiva Clear, PERRL HENT: Yes: Atraumatic, Normocephalic Neck: Yes: Supple, Trachea Midline Cardiovascular: Yes: Regular Rate and Rhythm, S1, S2 Respiratory: Yes: Regular, CTA Bilaterally Gastrointestinal: Yes: Soft, Abdomen, Obese Renal/: Yes: Rodríguez Present Extremities: Yes: WNL Edema: Yes Edema: LLE: Trace, RLE: Trace Peripheral Pulses WNL: Yes Integumentary: Yes: Erythema, Rash, Skin Tear (Skin sloughing on upper chest. Arm creases and back with dark red erythema, no blisters noted) Neurological: Yes: WNL, Oriented, Other (Somnolent) ...Motor Strength: WNL Psychiatric: Yes: Oriented Labs: CBC, BMP 09/22/17 05:35 09/22/17 05:35 CBC,CMP WBC 22.6 K/mm3 (4.0-10.0) H 09/22/17 05:35 RBC 4.00 M/mm3 (3.60-5.2) 09/22/17 05:35 Hgb 13.0 GM/dL (10.7-15.3) 09/22/17 05:35 Hct 40.1 % (32.4-45.2) 09/22/17 05:35 MCV 100.4 fl (80-96) H 09/22/17 05:35 MCH 32.5 pg (25.7-33.7) 09/22/17 05:35 MCHC 32.3 g/dl (32.0-36.0) 09/22/17 05:35 RDW 13.4 % (11.6-15.6) 09/22/17 05:35 Plt Count 127 K/MM3 (134-434) L D 09/22/17 05:35 MPV 11.1 fl (7.5-11.1) 09/22/17 05:35 Neutrophils % No Result Required. 09/22/17 05:35 Neutrophils % (Manual) 87.0 % (42.8-82.8) H 09/22/17 05:35 Band Neutrophils % 9.0 % 09/22/17 05:35 Lymphocytes % No Result Required. 09/22/17 05:35 Lymphocytes % (Manual) 3.0 % (8-40) L D 09/22/17 05:35 Monocytes % 5.5 % (3.8-10.2) 09/19/17 09:25 Monocytes % (Manual) 1 % (3.8-10.2) L 09/22/17 05:35 Eosinophils % 2.4 % (0-4.5) 09/19/17 09:25 Eosinophils % (Manual) 0.0 % (0-4.5) 09/22/17 05:35 Basophils % 0.4 % (0-2.0) 09/19/17 09:25 Basophils % (Manual) 0.0 % (0-2.0) 09/22/17 05:35 Myelocytes % (Man) 0 % (0-2) 09/22/17 05:35 Promyelocytes % (Man) 0 % (0-2) 09/22/17 05:35 Blast Cells % (Manual) 0 % (0-0) 09/22/17 05:35 Nucleated RBC % 0 % (0-0) 09/22/17 05:35 Metamyelocytes 0 % (0-2) 09/22/17 05:35 Platelet Estimate Decreased 09/22/17 05:35 Anisocytosis 1+ 09/22/17 05:35 Macrocytosis 1+ 09/22/17 05:35 Sodium 137 mmol/L (136-145) 09/22/17 05:35 Potassium 4.8 mmol/L (3.5-5.1) 09/22/17 05:35 Chloride 106 mmol/L (98-107) 09/22/17 05:35 Carbon Dioxide 20 mmol/L (21-32) L 09/22/17 05:35 Anion Gap 11 (8-16) 09/22/17 05:35 BUN 32 mg/dL (7-18) H 09/22/17 05:35 Creatinine 2.1 mg/dL (0.55-1.02) H 09/22/17 05:35 Creat Clearance w eGFR 23.86 (>60) 09/22/17 05:35 POC Glucometer 142 UNITS (80-120) 09/22/17 05:41 Random Glucose 139 mg/dL (74-106) H 09/22/17 05:35 Hemoglobin A1c % 6.6 % (4.8-6.0) H 09/19/17 09:25 Lactic Acid 2.6 mmol/L (0.0-2.0) H* 09/22/17 19:00 Calcium 7.6 mg/dL (8.5-10.1) L 09/22/17 05:35 Phosphorus 3.7 mg/dL (2.5-4.9) 09/18/17 05:52 Magnesium 2.2 mg/dL (1.8-2.4) 09/19/17 09:25 Total Bilirubin 0.4 mg/dL (0.2-1.0) D 09/22/17 05:35 Direct Bilirubin < 0.2 mg/dL (0.0-0.2) 09/17/17 21:00 AST 13 U/L (15-37) L 09/22/17 05:35 ALT 15 U/L (12-78) 09/22/17 05:35 Alkaline Phosphatase 50 U/L (45-117) 09/22/17 05:35 Creatine Kinase 321 IU/L (26-192) H 09/17/17 22:35 Creatine Kinase Index 2.3 % (0.0-5.0) 09/17/17 22:35 CK-MB (CK-2) 7.456 ng/mL (0.5-3.6) H 09/17/17 22:35 Troponin I < 0.02 ng/ml (0.00-0.05) 09/18/17 18:05 Total Protein 5.9 g/dl (6.4-8.2) L 09/22/17 05:35 Albumin 2.6 g/dl (3.4-5.0) L 09/22/17 05:35 Triglycerides 204 mg/dL (35-160) H 09/19/17 09:25 Cholesterol 193 mg/dL (50-200) 09/19/17 09:25 Total LDL Cholesterol 132 mg/dL (5-100) H 09/19/17 09:25 HDL Cholesterol 40 mg/dL (40-60) 09/19/17 09:25 Lipase 84 U/L (73-393) 09/17/17 21:00 Current Medications Acetaminophen (Tylenol -) 650 mg PO Q6H PRN PRN Reason: FEVER Atorvastatin Calcium (Lipitor -) 40 mg PO HS PÉREZ Chlorhexidine Gluconate (Hibiclens For Decolonization -) 1 applic TP HS PÉREZ Diphenhydramine HCl (Benadryl Injection -) 25 mg IVPUSH Q6H PRN PRN Reason: FOR ITCHING Fluocinonide (Lidex 0.05% Ointment -) 1 applic TP BID [facility] Last Admin: 09/22/17 18:09 Dose: 1 applic Gabapentin (Neurontin -) 300 mg PO TID [facility] Heparin Sodium (Porcine) (Heparin -) 5,000 unit SQ TID PÉREZ Sodium Chloride (Normal Saline -) 1,000 mls @ 150 mls/hr IV ASDIR [facility] Last Admin: 09/22/17 17:30 Dose: 150 mls/hr Insulin Aspart (Novolog Vial Sliding Scale -) 1 vial SQ ACHS [facility] PRN Reason: Protocol Loratadine (Claritin -) 10 mg PO DAILY [facility] Methylprednisolone Sodium Succinate (Solu-Medrol -) 40 mg IVPUSH Q6H-IV PÉREZ Mupirocin (Bactroban Ointment (For Decolonization) -) 1 applic NS BID [facility] Stop: 09/27/17 21:59 Nystatin (Nystatin Oral Suspension -) 500,000 units PO Q6HPO PÉREZ Phenobarbital (Phenobarbital -) 90 mg PO BID PÉREZ Silver Sulfadiazine (Silvadene -) 1 applic TP BID PÉREZ Zinc Acetate/Diphenhydramine (Benadryl 2% Cream) 1 applic TP DAILY [facility] Problem List - Problems (1) Acute kidney injury Code(s): N17.9 - ACUTE KIDNEY FAILURE, UNSPECIFIED (2) Drug rash Code(s): L27.0 - GEN SKIN ERUPTION DUE TO DRUGS AND MEDS TAKEN INTERNALLY (3) Lactic acidosis Code(s): E87.2 - ACIDOSIS (4) Sepsis Code(s): A41.9 - SEPSIS, UNSPECIFIED ORGANISM (5) UTI (urinary tract infection) Code(s): N39.0 - URINARY TRACT INFECTION, SITE NOT SPECIFIED (6) Bariatric surgery status Code(s): Z98.84 - BARIATRIC SURGERY STATUS (7) Diabetes Code(s): E11.9 - TYPE 2 DIABETES MELLITUS WITHOUT COMPLICATIONS Qualifiers: Diabetes mellitus type: type 2 Chronic kidney disease stage: stage 1 Assessment/Plan 62yow with PMHx HTN, HLD, DM, CKD, seizure disorder, morbid obesity s/p gastric sleeve who was admitted to ICU with fever and worsening erythematous rash and skin sloughing to trunk and arms after receiving Ceftriaxone for E- coli UTI. Ccb hypotension and BELEM m/l vasodilatory state 2/2 infection +/- anaphylaxis Plan: -Derm consult -Allergy consult -Continue benadryl and steroids for possible drug reaction -Cont Vanco and gent by level for empiric coverage -Silvadene cream for areas of skin breakage -Lidex for reddened areas -IVF at 150cc/h; fluid bolus as needed. -trend lactate -Hold antihypertensives -Cont statin -Monitor BMP and UOP -Continue DMII regimen -DVT prophylaxis SONU Raya CC time 35mins
[2017-09-22] MEDS: ATORVASTATIN CA 40 MG TABLET (FP) PO SCH (21:31)
[2017-09-22] MEDS: CHLORHEXIDINE GLUCONATE 4% CLEANSER FOR DECOLONIZATION TP SCH (21:32)
[2017-09-22] MEDS: MUPIROCIN 2% TOPICAL OINTMENT FOR DECOLONIZATION NS SCH (21:33)
[2017-09-22] MEDS ORDERED: HEMOQUE TEST 1 EACH EACH ONE (21:39)
[2017-09-22] MEDS: SILVER SULFADIAZINE 1% TOP CREAM 50 GM JAR TP SCH (22:18)
[2017-09-23] MEDS: methylPREDNISolone NA SUCC 40 MG/1 ML VIAL IVPUSH SCH ×4 (02:44→20:44)
[2017-09-23] MEDS: GABAPENTIN 300 MG CAPSULE (FP) PO SCH ×3 (05:51→21:44)
[2017-09-23] MEDS: HEPARIN NA (PORCINE) 5,000 UNITS/ML 1ML VIAL SQ SCH ×3 (05:51→21:41)
[2017-09-23] MEDS: NYSTATIN 500,000 UNITS/5 ML SUSPENSION PO SCH ×3 (05:51→17:51)
[2017-09-23 06:13] LABS: HEMOGLOBIN 10.7 GM/dL (10.7-15.3); MCH 32.8 pg (25.7-33.7); MCHC 33.4 g/dl (32.0-36.0); MEAN CELL VOLUME 98.3 fl (80-96); MEAN PLT VOLUME 12.5 fl (7.5-11.1); PLATELET COUNT 97 K/MM3 (134-434); RBC 3.26 M/mm3 (3.60-5.2); RDW 13.9 % (11.6-15.6); WHITE BLOOD COUNT 18.7 K/mm3 (4.0-10.0)
[2017-09-23] MEDS: INSULIN SLIDING SCALE (NOVOLOG) 1 VIAL SQ SCH ×4 (06:27→22:25)
[2017-09-23 06:42] LABS: ALBUMIN 2.2 g/dl (3.4-5.0); ANION GAP 11 (8-16); BLOOD UREA NITROGEN 41 mg/dL (7-18); CHLORIDE 111 mmol/L (98-107); CO2 18 mmol/L (21-32); GLUCOSE,RANDOM 160 mg/dL (74-106); MAGNESIUM 1.5 mg/dL (1.8-2.4); PHOSPHOROUS 3.2 mg/dL (2.5-4.9); POTASSIUM 4.4 mmol/L (3.5-5.1); SODIUM 140 mmol/L (136-145)
[2017-09-23 06:44] LABS: ALK PHOS 42 U/L (45-117); BILIRUBIN,TOTAL 0.4 mg/dL (0.2-1.0); CREATININE 2.1 mg/dL (0.55-1.02); SGOT/AST 10 U/L (15-37); SGPT/ALT 12 U/L (12-78); TOT PROT 5.1 g/dl (6.4-8.2)
[2017-09-23 07:03] LABS: CALCIUM 6.9 mg/dL (8.5-10.1)
--- NOTE | 2017-09-23 08:23 | EKG ---
Test Reason : Blood Pressure : / mmHG Vent. Rate : 102 BPM Atrial Rate : 102 BPM P-R Int : 000 ms QRS Dur : 168 ms QT Int : 440 ms P-R-T Axes : 015 251 014 degrees QTc Int : 573 ms SINUS TACHYCARDIA WITH 1ST DEGREE A-V BLOCK RIGHT BUNDLE BRANCH BLOCK ABNORMAL ECG WHEN COMPARED WITH ECG OF 19-SEP-2017 17:33, CT INTERVAL HAS DECREASED VENT. RATE HAS INCREASED BY 45 BPM QUESTIONABLE CHANGE IN QRS DURATION Confirmed by TRISTA WILKINSON MD ([id number]) on 09/23/2017 8:22:44 AM Referred By: BHARTI WRIGHT Confirmed By:TRISTA WILKINSON MD
--- NOTE | 2017-09-23 08:56 | PN ---
Progress Note (short form) - Note Progress Note: alert looks much more comfortable today temps down rash less red she reports feeling better Vital Signs Period Temp Pulse Resp BP Sys/Smith Pulse Ox Last 24 Hr 97 F-103 F 69-110 17-23 107-153/43-94 96-99 still swelling under her eyes unchanged no oral lesions cor-rrr lungs clear abd soft,nt ext no edema skin +erythema diffuse back chest antecub bilateral with plaque like lesions area behind her neck improved- dry pryor CBC, BMP 09/23/17 05:20 09/23/17 05:20 Current Medications Acetaminophen (Tylenol -) 650 mg PO Q6H PRN PRN Reason: FEVER Atorvastatin Calcium (Lipitor -) 40 mg PO HS PÉREZ Last Admin: 09/22/17 21:31 Dose: 40 mg Chlorhexidine Gluconate (Hibiclens For Decolonization -) 1 applic TP HS PÉREZ Last Admin: 09/22/17 21:32 Dose: 1 applic Diphenhydramine HCl (Benadryl Injection -) 25 mg IVPUSH Q6H PRN PRN Reason: FOR ITCHING Last Admin: 09/23/17 04:51 Dose: 25 mg Fluocinonide (Lidex 0.05% Ointment -) 1 applic TP BID PÉREZ Last Admin: 09/22/17 21:32 Dose: 1 applic Gabapentin (Neurontin -) 300 mg PO TID [facility] Last Admin: 09/23/17 05:51 Dose: 300 mg Heparin Sodium (Porcine) (Heparin -) 5,000 unit SQ TID PÉREZ Last Admin: 09/23/17 05:51 Dose: 5,000 unit Sodium Chloride (Normal Saline -) 1,000 mls @ 150 mls/hr IV ASDIR [facility] Last Admin: 09/22/17 17:30 Dose: 150 mls/hr Insulin Aspart (Novolog Vial Sliding Scale -) 1 vial SQ ACHS PÉREZ PRN Reason: Protocol Last Admin: 09/23/17 06:27 Dose: Not Given Loratadine (Claritin -) 10 mg PO DAILY PÉREZ Methylprednisolone Sodium Succinate (Solu-Medrol -) 40 mg IVPUSH Q6H-IV PÉREZ Last Admin: 09/23/17 02:44 Dose: 40 mg Mupirocin (Bactroban Ointment (For Decolonization) -) 1 applic NS BID [facility] Stop: 09/27/17 21:59 Last Admin: 09/22/17 21:33 Dose: 1 applic Nystatin (Nystatin Oral Suspension -) 500,000 units PO Q6HPO [facility] Last Admin: 09/23/17 05:51 Dose: 500,000 units Phenobarbital (Phenobarbital -) 90 mg PO BID [facility] Last Admin: 09/22/17 21:31 Dose: 90 mg Silver Sulfadiazine (Silvadene -) 1 applic TP BID [facility] Last Admin: 09/22/17 22:18 Dose: 1 applic Zinc Acetate/Diphenhydramine (Benadryl 2% Cream) 1 applic TP DAILY [facility] a/p drug rash-ceftriaxone fevers [place] ecoli uti not clear why vanc/gent levels cancelled- will reorder- please call me with results continue steroids, derm eval pending continue IVF clinically improved Problem List - Problems (1) Sepsis Code(s): A41.9 - SEPSIS, UNSPECIFIED ORGANISM (2) Drug rash Code(s): L27.0 - GEN SKIN ERUPTION DUE TO DRUGS AND MEDS TAKEN INTERNALLY (3) Acute kidney injury Code(s): N17.9 - ACUTE KIDNEY FAILURE, UNSPECIFIED (4) Lactic acidosis Code(s): E87.2 - ACIDOSIS
--- NOTE | 2017-09-23 09:05 | PN ---
Progress Note (short form) - Note Progress Note: Patient seen and examined in the ICU. Awake and alert. Reports feeling a little better today. Denies CP or SOB. Rash is apparently better today. Intake & Output 09/20/17 09/21/17 09/22/17 09/23/17 23:59 23:59 23:59 23:59 Intake Total 1915 4369 4275 1050 Output Total 200 800 300 Balance 1915 4169 3475 750 Weight 249 lb 4.247 oz 268 lb 9 oz Last Vital Signs Temp Pulse Resp BP Pulse Ox 97.4 F L 86 10 L 146/52 99 09/23/17 06:00 09/23/17 08:00 09/23/17 08:00 09/23/17 08:00 09/22/17 20:51 Active Medications Acetaminophen (Tylenol -) 650 mg PO Q6H PRN PRN Reason: FEVER Atorvastatin Calcium (Lipitor -) 40 mg PO HS [facility] Last Admin: 09/22/17 21:31 Dose: 40 mg Chlorhexidine Gluconate (Hibiclens For Decolonization -) 1 applic TP HS [facility] Last Admin: 09/22/17 21:32 Dose: 1 applic Diphenhydramine HCl (Benadryl Injection -) 25 mg IVPUSH Q6H PRN PRN Reason: FOR ITCHING Last Admin: 09/23/17 04:51 Dose: 25 mg Fluocinonide (Lidex 0.05% Ointment -) 1 applic TP BID [facility] Last Admin: 09/22/17 21:32 Dose: 1 applic Gabapentin (Neurontin -) 300 mg PO TID [facility] Last Admin: 09/23/17 05:51 Dose: 300 mg Heparin Sodium (Porcine) (Heparin -) 5,000 unit SQ TID [facility] Last Admin: 09/23/17 05:51 Dose: 5,000 unit Sodium Chloride (Normal Saline -) 1,000 mls @ 150 mls/hr IV ASDIR [facility] Last Admin: 09/22/17 17:30 Dose: 150 mls/hr Insulin Aspart (Novolog Vial Sliding Scale -) 1 vial SQ ACHS PÉREZ PRN Reason: Protocol Last Admin: 09/23/17 06:27 Dose: Not Given Loratadine (Claritin -) 10 mg PO DAILY [facility] Methylprednisolone Sodium Succinate (Solu-Medrol -) 40 mg IVPUSH Q6H-IV [facility] Last Admin: 09/23/17 02:44 Dose: 40 mg Mupirocin (Bactroban Ointment (For Decolonization) -) 1 applic NS BID [facility] Stop: 09/27/17 21:59 Last Admin: 09/22/17 21:33 Dose: 1 applic Nystatin (Nystatin Oral Suspension -) 500,000 units PO Q6HPO [facility] Last Admin: 09/23/17 05:51 Dose: 500,000 units Phenobarbital (Phenobarbital -) 90 mg PO BID [facility] Last Admin: 09/22/17 21:31 Dose: 90 mg Silver Sulfadiazine (Silvadene -) 1 applic TP BID [facility] Last Admin: 09/22/17 22:18 Dose: 1 applic Zinc Acetate/Diphenhydramine (Benadryl 2% Cream) 1 applic TP DAILY [facility] Constitutional: Yes: Obese, diffuse rash on chest (drying) and mild on back, no oral/vaginal lesions Eyes: Yes: Conjunctiva Clear, PERRL HENT: Yes: Atraumatic, Normocephalic Neck: Yes: Supple, Trachea Midline Cardiovascular: Yes: Regular Rate and Rhythm, S1, S2 Respiratory: Yes: Regular, CTA Bilaterally Gastrointestinal: Yes: Soft, Abdomen, Obese Renal/: Yes: Rodríguez Present Extremities: Yes: WNL Edema: Yes Edema: LLE: Trace, RLE: Trace Peripheral Pulses WNL: Yes Integumentary: Yes: Erythema, Rash, Skin Tear (Skin drying on upper chest. Antecubital areas with erythema, no blisters noted) Neurological: Yes: WNL, Oriented, non-focal ...Motor Strength: WNL Psychiatric: Yes: Oriented Labs: Laboratory Results - last 24 hr 09/22/17 09/22/17 09/22/17 05:35 08:10 08:10 WBC RBC Hgb Hct MCV MCH MCHC RDW Plt Count MPV Neutrophils % Neutrophils % (Manual) 87.0 H Band Neutrophils % 9.0 Lymphocytes % Lymphocytes % (Manual) 3.0 L D Monocytes % (Manual) 1 L Eosinophils % (Manual) 0.0 Basophils % (Manual) 0.0 Myelocytes % (Man) 0 Promyelocytes % (Man) 0 Blast Cells % (Manual) 0 Nucleated RBC % 0 Metamyelocytes 0 Platelet Estimate Decreased Anisocytosis 1+ Macrocytosis 1+ Sodium Potassium Chloride Carbon Dioxide Anion Gap BUN Creatinine Creat Clearance w eGFR POC Glucometer Random Glucose Lactic Acid Calcium Phosphorus Magnesium Total Bilirubin AST ALT Alkaline Phosphatase Total Protein Albumin Gentamicin Trough 3.2 H* Random Vancomycin 11.517 09/22/17 09/22/17 09/22/17 08:10 12:28 18:24 WBC RBC Hgb Hct MCV MCH MCHC RDW Plt Count MPV Neutrophils % Neutrophils % (Manual) Band Neutrophils % Lymphocytes % Lymphocytes % (Manual) Monocytes % (Manual) Eosinophils % (Manual) Basophils % (Manual) Myelocytes % (Man) Promyelocytes % (Man) Blast Cells % (Manual) Nucleated RBC % Metamyelocytes Platelet Estimate Anisocytosis Macrocytosis Sodium Potassium Chloride Carbon Dioxide Anion Gap BUN Creatinine Creat Clearance w eGFR POC Glucometer [phone] Random Glucose Lactic Acid 3.1 H* 2.9 H* Calcium Phosphorus Magnesium Total Bilirubin AST ALT Alkaline Phosphatase Total Protein Albumin Gentamicin Trough Random Vancomycin 09/22/17 09/22/17 09/23/17 19:00 21:41 05:20 WBC RBC Hgb Hct MCV MCH MCHC RDW Plt Count MPV Neutrophils % Neutrophils % (Manual) Band Neutrophils % Lymphocytes % Lymphocytes % (Manual) Monocytes % (Manual) Eosinophils % (Manual) Basophils % (Manual) Myelocytes % (Man) Promyelocytes % (Man) Blast Cells % (Manual) Nucleated RBC % Metamyelocytes Platelet Estimate Anisocytosis Macrocytosis Sodium 140 Potassium 4.4 Chloride 111 H Carbon Dioxide 18 L Anion Gap 11 BUN 41 H Creatinine 2.1 H Creat Clearance w eGFR 23.86 POC Glucometer [phone] Random Glucose 160 H Lactic Acid 2.6 H* Calcium 6.9 L* Phosphorus 3.2 Magnesium 1.5 L Total Bilirubin 0.4 AST 10 L ALT 12 Alkaline Phosphatase 42 L Total Protein 5.1 L Albumin 2.2 L Gentamicin Trough Random Vancomycin 09/23/17 09/23/17 05:20 05:36 WBC 18.7 H RBC 3.26 L Hgb 10.7 D Hct 32.0 L D MCV 98.3 H MCH 32.8 MCHC 33.4 RDW 13.9 Plt Count 97 L D MPV 12.5 H D Neutrophils % No Result Required. Neutrophils % (Manual) Band Neutrophils % Lymphocytes % No Result Required. Lymphocytes % (Manual) Monocytes % (Manual) Eosinophils % (Manual) Basophils % (Manual) Myelocytes % (Man) Promyelocytes % (Man) Blast Cells % (Manual) Nucleated RBC % Metamyelocytes Platelet Estimate Anisocytosis Macrocytosis Sodium Potassium Chloride Carbon Dioxide Anion Gap BUN Creatinine Creat Clearance w eGFR POC Glucometer [phone] Random Glucose Lactic Acid Calcium Phosphorus Magnesium Total Bilirubin AST ALT Alkaline Phosphatase Total Protein Albumin Gentamicin Trough Random Vancomycin Problem List - Problems (1) Acute kidney injury Code(s): N17.9 - ACUTE KIDNEY FAILURE, UNSPECIFIED (2) Drug rash Code(s): L27.0 - GEN SKIN ERUPTION DUE TO DRUGS AND MEDS TAKEN INTERNALLY (3) Lactic acidosis Code(s): E87.2 - ACIDOSIS (4) Sepsis Code(s): A41.9 - SEPSIS, UNSPECIFIED ORGANISM (5) UTI (urinary tract infection) Code(s): N39.0 - URINARY TRACT INFECTION, SITE NOT SPECIFIED (6) Bariatric surgery status Code(s): Z98.84 - BARIATRIC SURGERY STATUS (7) Diabetes Code(s): E11.9 - TYPE 2 DIABETES MELLITUS WITHOUT COMPLICATIONS Qualifiers: Diabetes mellitus type: type 2 Chronic kidney disease stage: stage 1 Assessment/Plan Improving Rash: likely due to drug reaction R/O Tone Sanchez (low suspicion) E Coli UTI Plan: -Derm consult pending -Continue benadryl and steroids for possible drug reaction -ABX per ID -Maintain IVF at 150cc/h -Monitor BMP and UOP -Glycemic control -ICU monitoring Dr Alonzo Critical care time spent in reviewing chart, evaluating patient and formulating plan - 36 minutes.
[2017-09-23] MEDS ORDERED: MAGNESIUM 2GM/50ML STERILE WATER IVPB IVPB ONE (09:21)
[2017-09-23] MEDS: LORATADINE 10 MG TABLET PO SCH (09:42)
[2017-09-23] MEDS: PHENobarbital 30 MG TABLET PO SCH ×2 (09:43→21:43)
[2017-09-23] MEDS: SILVER SULFADIAZINE 1% TOP CREAM 50 GM JAR TP SCH (09:49)
[2017-09-23] MEDS: MUPIROCIN 2% TOPICAL OINTMENT FOR DECOLONIZATION NS SCH ×2 (09:50→21:41)
[2017-09-23] MEDS: FLUOCINONIDE 0.05% TOP OINT (60 GM TUBE) TP SCH ×2 (09:51→21:42)
--- NOTE | 2017-09-23 11:15 | PN ---
Progress Note (short form) - Note Progress Note: Subjective: The patient was seen and examined at the bedside, she has no complaints at this time. She states improvement with her itching Current Medications Generic Name Dose Route Start Last Admin Trade Name Freq PRN Reason Stop Dose Admin Acetaminophen 650 mg 09/22/17 18:14 Tylenol - PO Q6H PRN FEVER Atorvastatin Calcium 40 mg 09/22/17 22:00 09/22/17 21:31 Lipitor - PO 40 mg HS PÉREZ Administration Chlorhexidine Gluconate 1 applic 09/22/17 22:00 09/22/17 21:32 Hibiclens For Decolonization - TP 1 applic HS PÉREZ Administration Diphenhydramine HCl 25 mg 09/22/17 18:14 09/23/17 04:51 Benadryl Injection - IVPUSH 25 mg Q6H PRN Administration FOR ITCHING Fluocinonide 1 applic 09/22/17 15:15 09/23/17 09:51 Lidex 0.05% Ointment - TP 1 applic BID PÉREZ Administration Gabapentin 300 mg 09/22/17 22:00 09/23/17 05:51 Neurontin - PO 300 mg TID PÉREZ Administration Heparin Sodium (Porcine) 5,000 unit 09/22/17 22:00 09/23/17 05:51 Heparin - SQ 5,000 unit TID PÉREZ Administration Sodium Chloride 1,000 mls @ 150 mls/hr 09/22/17 18:14 09/22/17 17:30 Normal Saline - IV 150 mls/hr ASDIR PÉREZ Administration Insulin Aspart 1 vial 09/22/17 22:00 09/23/17 06:27 Novolog Vial Sliding Scale - SQ Not Given ACHS PÉREZ Protocol Loratadine 10 mg 09/23/17 10:00 09/23/17 09:42 Claritin - PO 10 mg DAILY PÉREZ Administration Methylprednisolone Sodium Succinate 40 mg 09/22/17 21:00 09/23/17 09:42 Solu-Medrol - IVPUSH 40 mg Q6H-IV PÉREZ Administration Mupirocin 1 applic 09/22/17 22:00 09/23/17 09:50 Bactroban Ointment (For Decolonization) - NS 09/27/17 21:59 1 applic BID PÉREZ Administration Nystatin 500,000 units 09/23/17 00:00 09/23/17 05:51 Nystatin Oral Suspension - PO 500,000 units Q6HPO PÉREZ Administration Phenobarbital 90 mg 09/22/17 22:00 09/23/17 09:43 Phenobarbital - PO 90 mg BID PÉREZ Administration Silver Sulfadiazine 1 applic 09/22/17 22:00 09/23/17 09:49 Silvadene - TP 1 applic BID PÉREZ Administration Zinc Acetate/Diphenhydramine 1 applic 09/23/17 10:00 Benadryl 2% Cream TP DAILY PÉREZ Objective: Vital Signs Period Temp Pulse Resp BP Sys/Smith Pulse Ox Last 24 Hr 97 F-103 F 69-110 10-23 107-153/43-94 98-100 Physical Exam: General: NAD, lethargic HEENT: periorbital edema. +thrush Lungs: CTA bilaterally Heart: RRR, S1S2 Abd: Soft, non-tender, Non-distended : Rodríguez catheter in place with clear, yellow urine Skin: Erythema on chest and around neck, b/l antecubital fossa, b/l axilla, b/l thighs. Pustules resolved CBCD WBC 18.7 K/mm3 (4.0-10.0) H 09/23/17 05:20 RBC 3.26 M/mm3 (3.60-5.2) L 09/23/17 05:20 Hgb 10.7 GM/dL (10.7-15.3) D 09/23/17 05:20 Hct 32.0 % (32.4-45.2) L D 09/23/17 05:20 MCV 98.3 fl (80-96) H 09/23/17 05:20 MCHC 33.4 g/dl (32.0-36.0) 09/23/17 05:20 RDW 13.9 % (11.6-15.6) 09/23/17 05:20 Plt Count 97 K/MM3 (134-434) L D 09/23/17 05:20 MPV 12.5 fl (7.5-11.1) H D 09/23/17 05:20 CMP Sodium 140 mmol/L (136-145) 09/23/17 05:20 Potassium 4.4 mmol/L (3.5-5.1) 09/23/17 05:20 Chloride 111 mmol/L (98-107) H 09/23/17 05:20 Carbon Dioxide 18 mmol/L (21-32) L 09/23/17 05:20 Anion Gap 11 (8-16) 09/23/17 05:20 BUN 41 mg/dL (7-18) H 09/23/17 05:20 Creatinine 2.1 mg/dL (0.55-1.02) H 09/23/17 05:20 Creat Clearance w eGFR 23.86 (>60) 09/23/17 05:20 Random Glucose 160 mg/dL (74-106) H 09/23/17 05:20 Calcium 6.9 mg/dL (8.5-10.1) L* 09/23/17 05:20 Total Bilirubin 0.4 mg/dL (0.2-1.0) 09/23/17 05:20 AST 10 U/L (15-37) L 09/23/17 05:20 ALT 12 U/L (12-78) 09/23/17 05:20 Alkaline Phosphatase 42 U/L (45-117) L 09/23/17 05:20 Total Protein 5.1 g/dl (6.4-8.2) L 09/23/17 05:20 Albumin 2.2 g/dl (3.4-5.0) L 09/23/17 05:20 CARDIAC ENZYMES Creatine Kinase 321 IU/L (26-192) H 09/17/17 22:35 Troponin I < 0.02 ng/ml (0.00-0.05) 09/18/17 18:05 Microbiology 09/21/17 02:35 Blood - Peripheral Venous Blood Culture - Preliminary NO GROWTH OBTAINED AFTER 48 HOURS, INCUBATION TO CONTINUE FOR 3 DAYS. 09/21/17 02:35 Blood - Peripheral Venous Blood Culture - Preliminary NO GROWTH OBTAINED AFTER 48 HOURS, INCUBATION TO CONTINUE FOR 3 DAYS. 09/21/17 13:00 Urine - Urine - Catheterized Urine Culture - Final NO GROWTH OBTAINED 09/17/17 22:45 Urine - Urine Clean Catch Urine Culture - Final Escherichia Coli Assessment: This is a 62 year old female with PMHx of DM II, HTN, morbid obesity , cholecystectomy, gastric sleeve 2017, epilepsy (last seizure 4 years ago) presented with nausea, vomiting. Plan: 1) Acute generalized exanthematous pustulosis - Likely 2/2 Ceftriaxone - Improving, pustules resolved, now with erythema and maceration - Continue systemic steroids - Continue Lidex - Benadryl for itching - Discussed with Dr. Lamar yesterday who will evaluate the patient today 2) Severe sepsis 2/2 e.coli UTI - Lactic acid remains elevated, IV fluids increased yesterday to NS 150ml/hr. Multiple fluid boluses given yesterday - F/u repeat lactic acid level today - Continue Vancomycin - Continue Gentamycin - Trend fever curve, Tylenol prn - Appreciate ID consult 3) BELEM on CKD - Hx of HD in 2005 - Likely prerenal 2/2 episode of hypotension on 09/21 - Rodríguez catheter maintained for accurate output - Urine output increased yesterday to 800cc - Cr stable 2.1 today - Kidney ultrasound: both kidneys appear unremarkable, no hydronephrosis noted - Appreciate nephrology consult 4) Nausea/vomiting - Resolved 5) Prolonged qtc - Avoid all agents that prolong qtc 6) HTN - Hold 2/2 severe sepsis 7) Epilepsy - Continue Phenobarbital 8) DM - BGM ACHS - ISS ACHS 9) F/E/N: - Renal diet - Monitor electrolytes 10) Prophylaxis: - Heparin 5,000u sq tid 11) Dispo: - Requires continued inpatient care CODE STATUS: FULL CODE Visit type - Emergency Visit Emergency Visit: Yes ED Registration Date: 09/21/17 Care time: The patient presented to the Emergency Department on the above date and was hospitalized for further evaluation of their emergent condition. - New Patient This patient is new to me today: No - Critical Care Critical Care patient: Yes Total Critical Care Time (in minutes): 45 Critical Care Statement: The care of this patient involved high complexity decision making to prevent further life threatening deterioration of the patient 's condition and/or to evaluate & treat vital organ system(s) failure or risk of failure.
[2017-09-23 11:48] LABS: PLATELET ESTIMATE DECREASED
[2017-09-23] MEDS ORDERED: GENTAMICIN 80 MG PREMIXED IVPB 80 MG/100 ML BAG IVPB ONE (11:50)
[2017-09-23] MEDS ORDERED: VANCOMYCIN 1 GM PREMIX - 1 GM/200 ML BAG IVPB ONE (11:50)
--- NOTE | 2017-09-23 12:42 | PN ---
Progress Note, Physician History of Present Illness: Pt seen and examined at bedside. She is awake and alert. She denies shortness of breath. She feels that her rash is improved. - Current Medication List Current Medications: Active Medications Acetaminophen (Tylenol -) 650 mg PO Q6H PRN PRN Reason: FEVER Atorvastatin Calcium (Lipitor -) 40 mg PO HS PÉREZ Last Admin: 09/22/17 21:31 Dose: 40 mg Chlorhexidine Gluconate (Hibiclens For Decolonization -) 1 applic TP HS [facility] Last Admin: 09/22/17 21:32 Dose: 1 applic Diphenhydramine HCl (Benadryl Injection -) 25 mg IVPUSH Q6H PRN PRN Reason: FOR ITCHING Last Admin: 09/23/17 04:51 Dose: 25 mg Fluocinonide (Lidex 0.05% Ointment -) 1 applic TP BID [facility] Last Admin: 09/23/17 09:51 Dose: 1 applic Gabapentin (Neurontin -) 300 mg PO TID [facility] Last Admin: 09/23/17 05:51 Dose: 300 mg Heparin Sodium (Porcine) (Heparin -) 5,000 unit SQ TID [facility] Last Admin: 09/23/17 05:51 Dose: 5,000 unit Sodium Chloride (Normal Saline -) 1,000 mls @ 150 mls/hr IV ASDIR [facility] Last Admin: 09/22/17 17:30 Dose: 150 mls/hr Vancomycin HCl (Vancomycin 1 Gm Premix -) 1 gm in 200 mls @ 133.333 mls/hr IVPB ONCE ONE PRN Reason: Protocol Stop: 09/23/17 13:19 Gentamicin Sulfate/Sodium Chloride (Garamycin 80 Mg Premixed Ivpb -) 80 mg in 100 mls @ 100 mls/hr IVPB ONCE ONE PRN Reason: Protocol Stop: 09/23/17 12:49 Last Admin: 09/23/17 12:11 Dose: 100 mls/hr Insulin Aspart (Novolog Vial Sliding Scale -) 1 vial SQ ACHS PÉREZ PRN Reason: Protocol Last Admin: 09/23/17 12:06 Dose: 2 units Loratadine (Claritin -) 10 mg PO DAILY [facility] Last Admin: 09/23/17 09:42 Dose: 10 mg Methylprednisolone Sodium Succinate (Solu-Medrol -) 40 mg IVPUSH Q6H-IV [facility] Last Admin: 09/23/17 09:42 Dose: 40 mg Mupirocin (Bactroban Ointment (For Decolonization) -) 1 applic NS BID [facility] Stop: 09/27/17 21:59 Last Admin: 09/23/17 09:50 Dose: 1 applic Nystatin (Nystatin Oral Suspension -) 500,000 units PO Q6HPO [facility] Last Admin: 09/23/17 12:11 Dose: 500,000 units Phenobarbital (Phenobarbital -) 90 mg PO BID [facility] Last Admin: 09/23/17 09:43 Dose: 90 mg Silver Sulfadiazine (Silvadene -) 1 applic TP BID [facility] Last Admin: 09/23/17 09:49 Dose: 1 applic Zinc Acetate/Diphenhydramine (Benadryl 2% Cream) 1 applic TP DAILY [facility] Last Admin: 09/23/17 12:06 Dose: 1 applic - Objective Vital Signs: Vital Signs Temperature 98.7 F 09/23/17 10:00 Pulse Rate 84 09/23/17 10:00 Respiratory Rate 10 L 09/23/17 10:00 Blood Pressure 152/72 09/23/17 10:00 O2 Sat by Pulse Oximetry (%) 100 09/23/17 10:00 Constitutional: Yes: Calm Eyes: Yes: Conjunctiva Clear HENT: Yes: Atraumatic Neck: Yes: Supple Cardiovascular: Yes: S1, S2 Respiratory: Yes: CTA Bilaterally Gastrointestinal: Yes: Soft, Abdomen, Obese Musculoskeletal: Yes: WNL Edema: Yes Edema: LLE: Trace, RLE: Trace Integumentary: Yes: Rash Neurological: Yes: Oriented Psychiatric: Yes: Oriented Labs: CBC, BMP 09/23/17 05:20 09/23/17 05:20 Problem List - Problems (1) Acute kidney injury Code(s): N17.9 - ACUTE KIDNEY FAILURE, UNSPECIFIED (2) Lactic acidosis Code(s): E87.2 - ACIDOSIS (3) Sepsis Code(s): A41.9 - SEPSIS, UNSPECIFIED ORGANISM (4) UTI (urinary tract infection) Code(s): N39.0 - URINARY TRACT INFECTION, SITE NOT SPECIFIED (5) Bariatric surgery status Code(s): Z98.84 - BARIATRIC SURGERY STATUS (6) Diabetes Code(s): E11.9 - TYPE 2 DIABETES MELLITUS WITHOUT COMPLICATIONS Qualifiers: Diabetes mellitus type: type 2 Chronic kidney disease stage: stage 1 (7) Hyperlipidemia Code(s): E78.5 - HYPERLIPIDEMIA, UNSPECIFIED Qualifiers: Hyperlipidemia type: mixed hyperlipidemia Qualified Code(s): E78.2 - Mixed hyperlipidemia (8) Hypertension Code(s): I10 - ESSENTIAL (PRIMARY) HYPERTENSION Qualifiers: Hypertension type: essential hypertension Qualified Code(s): I10 - Essential (primary) hypertension (9) Morbid (severe) obesity due to excess calories Code(s): E66.01 - MORBID (SEVERE) OBESITY DUE TO EXCESS CALORIES Assessment/Plan Current Medications Generic Name Dose Route Start Last Admin Trade Name Freq PRN Reason Stop Dose Admin Acetaminophen 650 mg 09/22/17 18:14 Tylenol - PO Q6H PRN FEVER Atorvastatin Calcium 40 mg 09/22/17 22:00 09/22/17 21:31 Lipitor - PO 40 mg HS PÉREZ Administration Chlorhexidine Gluconate 1 applic 09/22/17 22:00 09/22/17 21:32 Hibiclens For Decolonization - TP 1 applic HS PÉREZ Administration Diphenhydramine HCl 25 mg 09/22/17 18:14 09/23/17 04:51 Benadryl Injection - IVPUSH 25 mg Q6H PRN Administration FOR ITCHING Fluocinonide 1 applic 09/22/17 15:15 09/23/17 09:51 Lidex 0.05% Ointment - TP 1 applic BID PÉREZ Administration Gabapentin 300 mg 09/22/17 22:00 09/23/17 05:51 Neurontin - PO 300 mg TID PÉREZ Administration Heparin Sodium (Porcine) 5,000 unit 09/22/17 22:00 09/23/17 05:51 Heparin - SQ 5,000 unit TID PÉREZ Administration Sodium Chloride 1,000 mls @ 150 mls/hr 09/22/17 18:14 09/22/17 17:30 Normal Saline - IV 150 mls/hr ASDIR PÉREZ Administration Vancomycin HCl 1 gm in 200 mls @ 133.333 mls/hr 09/23/17 11:50 Vancomycin 1 Gm Premix - IVPB 09/23/17 13:19 ONCE ONE Protocol Gentamicin Sulfate/Sodium Chloride 80 mg in 100 mls @ 100 mls/hr 09/23/17 11: 50 09/23/17 12:11 Garamycin 80 Mg Premixed Ivpb - IVPB 09/23/17 12:49 100 mls/hr ONCE ONE Administration Protocol Insulin Aspart 1 vial 09/22/17 22:00 09/23/17 12:06 Novolog Vial Sliding Scale - SQ 2 units ACHS PÉREZ Administration Protocol Loratadine 10 mg 09/23/17 10:00 09/23/17 09:42 Claritin - PO 10 mg DAILY PÉREZ Administration Methylprednisolone Sodium Succinate 40 mg 09/22/17 21:00 09/23/17 09:42 Solu-Medrol - IVPUSH 40 mg Q6H-IV PÉREZ Administration Mupirocin 1 applic 09/22/17 22:00 09/23/17 09:50 Bactroban Ointment (For Decolonization) - NS 09/27/17 21:59 1 applic BID PÉREZ Administration Nystatin 500,000 units 09/23/17 00:00 09/23/17 12:11 Nystatin Oral Suspension - PO 500,000 units Q6HPO PÉREZ Administration Phenobarbital 90 mg 09/22/17 22:00 09/23/17 09:43 Phenobarbital - PO 90 mg BID PÉREZ Administration Silver Sulfadiazine 1 applic 09/22/17 22:00 09/23/17 09:49 Silvadene - TP 1 applic BID PÉREZ Administration Zinc Acetate/Diphenhydramine 1 applic 09/23/17 10:00 09/23/17 12:06 Benadryl 2% Cream TP 1 applic DAILY PÉREZ Administration Laboratory Tests 09/21/17 09/22/17 09/22/17 14:00 08:10 08:10 Lactic Acid Urine Eosinophils Pending Gentamicin Trough Random Vancomycin BEBA M-Isaac Pending YOLI Screen Pending c-ANCA Pending Proteinase 3 (PR3) Pending p-ANCA Pending Atypical p-ANCA Pending Myeloperoxidase Ab Pending Double Strand DNA Ab Pending Glomerular Base Memb Ab Pending Hep Bs Antigen Pending Hep Bs Antibody Pending Hep B Core Total Ab Pending HCV Quantitation Pending Hepatitis C RNA Pending 09/23/17 09/23/17 09/23/17 10:05 10:05 10:05 Lactic Acid 2.5 H* Urine Eosinophils Gentamicin Trough 0.7 Random Vancomycin 9.081 BEBA M-Isaac YOLI Screen c-ANCA Proteinase 3 (PR3) p-ANCA Atypical p-ANCA Myeloperoxidase Ab Double Strand DNA Ab Glomerular Base Memb Ab Hep Bs Antigen Hep Bs Antibody Hep B Core Total Ab HCV Quantitation Hepatitis C RNA Impression 1. BELEM 2. CKD 3. sepsis 4. hypotension 5. rash 6. possible drug reaction 7. obesity 8. DM 9. hx htn 10. lactic acidosis 11. prolonged qt Plan - creatinine is unchanged - repeat in am - cont with fluids - renal workup is in progress - derm is pending - keep manish on hold - monitor urine output - cont steroids for now - follow urine eos - rheum eval - FENa was about 0.14 - ICU monitoring
--- NOTE | 2017-09-23 14:11 | CONSULT ---
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 - Alcohol/Substance Use Hx Alcohol Use: No - Smoking History Smoking history: Never smoked Have you smoked in the past 12 months: No - Social History Usual Living Arrangement: With Child Home Medications - Allergies Allergies/Adverse Reactions: Allergies Allergy/AdvReac Type Severity Reaction Status Date / Time ceftriaxone Allergy Severe Rash Verified 09/21/17 19:05 levetiracetam [From Keppra] Allergy Swelling Verified 09/17/17 19:53 morphine Allergy Itching Verified 09/17/17 19:53 hydromorphone HCl AdvReac Itching Verified 09/17/17 19:53 [From Dilaudid] - Home Medications Home Medications: Ambulatory Orders Amlodipine Besylate 5 mg PO DAILY 11/16/16 Metoprolol Succinate [Toprol Xl] 100 mg PO BID 11/16/16 Atorvastatin Ca [Lipitor] 40 mg PO HS 11/17/16 Famotidine [Pepcid] 20 mg PO BID #60 tablet 11/17/16 Glipizide 5 mg PO DAILY 11/17/16 Lisinopril [Zestril] 5 mg PO DAILY 11/17/16 Phenobarbital 97.2 mg PO BID 11/17/16 Gabapentin [Neurontin -] 300 mg PO Q8H 09/17/17 Family Disease History - Family Disease History Family History: Unable to Obtain Review of Systems - Review of Systems Constitutional: reports: Other (pruritis) Integumentary: reports: Erythema, Pruritis, Rash Physical Exam Vital Signs: Vital Signs Temperature 98.7 F 09/23/17 10:00 Pulse Rate 90 09/23/17 12:00 Respiratory Rate 19 09/23/17 12:00 Blood Pressure 169/62 09/23/17 12:00 O2 Sat by Pulse Oximetry (%) 100 09/23/17 10:00 Constitutional: Yes: Obese Labs: CBC, BMP 09/23/17 05:20 09/23/17 05:20 Assessment/Plan Called to see patient who developed an eruption shortly after being treated with Ceftriaxone. On exam she has diffuse erythema especially in a V-neck distribution on neck and chest . The erythema continues over the entire back extending down to the buttocks. There is erythema , maceration and denuded skin in the axillary region as well as the antecubital fossae. The inguinal area is also affected . There is sparing of the LE and forearms and palms. the face is unaffected except for periorbital edema. The patient has no vesicles or bullae suggesting this is not an immunobullous disorder or Diego Johnsons syndrome . The presence of preceding pustules that have since ruptured suggest a pustular drug eruption which usually resolves soon after discontinuation of offending drug . The patient is improving on IV steroids, IV antihistamines and topical mid- strength steroids . Please keep denuded areas of skin clean with saline and apply Bactroban. 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
--- NOTE | 2017-09-23 15:37 | EKG ---
Test Reason : Blood Pressure : / mmHG Vent. Rate : 091 BPM Atrial Rate : 091 BPM P-R Int : 272 ms QRS Dur : 162 ms QT Int : 430 ms P-R-T Axes : 029 259 021 degrees QTc Int : 528 ms SINUS RHYTHM WITH MARKED SINUS ARRHYTHMIA WITH 1ST DEGREE A-V BLOCK RIGHT BUNDLE BRANCH BLOCK POSSIBLE LATERAL INFARCT , AGE UNDETERMINED ABNORMAL ECG WHEN COMPARED WITH ECG OF 19-SEP-2017 17:33, [place] INTERVAL HAS INCREASED VENT. RATE HAS INCREASED BY 34 BPM BORDERLINE CRITERIA FOR LATERAL INFARCT ARE NOW PRESENT CRITERIA FOR INFERIOR INFARCT ARE NO LONGER PRESENT Confirmed by TRISTA WILKINSON MD ([id number]) on 09/23/2017 3:37:19 PM Referred By: Confirmed By:TRISTA WILKINSON MD
[2017-09-23] MEDS: SODIUM CHLORIDE 1,000 ML IV SCH (18:02)
[2017-09-23] MEDS: CHLORHEXIDINE GLUCONATE 4% CLEANSER FOR DECOLONIZATION TP SCH (21:42)
[2017-09-23] MEDS: ATORVASTATIN CA 40 MG TABLET (FP) PO SCH (21:43)
[2017-09-23] MEDS: METOPROLOL TARTRATE 50 MG TABLET (FP) PO SCH (21:43)
[2017-09-24] MEDS: methylPREDNISolone NA SUCC 40 MG/1 ML VIAL IVPUSH SCH ×4 (03:09→20:28)
[2017-09-24] MEDS: NYSTATIN 500,000 UNITS/5 ML SUSPENSION PO SCH ×3 (05:51→12:41)
[2017-09-24] MEDS: HEPARIN NA (PORCINE) 5,000 UNITS/ML 1ML VIAL SQ SCH ×3 (05:51→22:13)
[2017-09-24] MEDS: GABAPENTIN 300 MG CAPSULE (FP) PO SCH ×3 (05:51→22:13)
[2017-09-24 06:21] LABS: BASO % 0.1 % (0-2.0); EOS % 0.1 % (0-4.5); HEMATOCRIT 30.7 % (32.4-45.2); HEMOGLOBIN 10.3 GM/dL (10.7-15.3); LYMPH % 3.4 % (8-40); MCH 32.6 pg (25.7-33.7); MCHC 33.4 g/dl (32.0-36.0); MEAN CELL VOLUME 97.6 fl (80-96); MONO % 3.9 % (3.8-10.2); NEUT % 92.5 % (42.8-82.8); PLATELET COUNT 107 K/MM3 (134-434); RBC 3.14 M/mm3 (3.60-5.2); RDW 13.6 % (11.6-15.6); WHITE BLOOD COUNT 16.9 K/mm3 (4.0-10.0)
[2017-09-24 06:38] LABS: HBSAG SCREEN Negative (Negative); HEP A AB, IGM Negative (Negative); HEP B CORE AB, TOT Negative (Negative)
[2017-09-24] MEDS: INSULIN SLIDING SCALE (NOVOLOG) 1 VIAL SQ SCH ×3 (07:00→16:43)
[2017-09-24 07:03] LABS: CHLORIDE 113 mmol/L (98-107); POTASSIUM 4.2 mmol/L (3.5-5.1); SODIUM 143 mmol/L (136-145)
[2017-09-24 07:16] LABS: ALBUMIN 2.5 g/dl (3.4-5.0); ALK PHOS 51 U/L (45-117); ANION GAP 9 (8-16); BILIRUBIN,TOTAL 0.3 mg/dL (0.2-1.0); BLOOD UREA NITROGEN 34 mg/dL (7-18); CALCIUM 7.4 mg/dL (8.5-10.1); CO2 21 mmol/L (21-32); CREATININE 1.5 mg/dL (0.55-1.02); GLUCOSE,RANDOM 150 mg/dL (74-106); MAGNESIUM 1.9 mg/dL (1.8-2.4); SGOT/AST 9 U/L (15-37); SGPT/ALT 14 U/L (12-78); TOT PROT 5.7 g/dl (6.4-8.2)
--- NOTE | 2017-09-24 09:03 | PN ---
Progress Note (short form) - Note Progress Note: Patient seen and examined in the ICU. Awake and alert. Reports feeling a little better today. Dermatology consult noted. Rash appears better today. Intake & Output 09/21/17 09/22/17 09/23/17 09/24/17 23:59 23:59 23:59 23:59 Intake Total 4369 4275 1700 2000 Output Total 200 141 862 1495 Balance 4169 3475 900 -500 Weight 4.247 oz 268 lb 9 oz 264 lb 1.82 oz Last Vital Signs Temp Pulse Resp BP Pulse Ox 98.8 F 61 20 190/82 100 09/24/17 06:00 09/24/17 08:00 09/24/17 08:00 09/24/17 08:00 09/23/17 21:00 Active Medications Acetaminophen (Tylenol -) 650 mg PO Q6H PRN PRN Reason: FEVER Atorvastatin Calcium (Lipitor -) 40 mg PO HS [facility] Last Admin: 09/23/17 21:43 Dose: 40 mg Chlorhexidine Gluconate (Hibiclens For Decolonization -) 1 applic TP HS [facility] Last Admin: 09/23/17 21:42 Dose: 1 applic Diphenhydramine HCl (Benadryl Injection -) 25 mg IVPUSH Q6H PRN PRN Reason: FOR ITCHING Last Admin: 09/23/17 13:37 Dose: 25 mg Fluocinonide (Lidex 0.05% Ointment -) 1 applic TP BID [facility] Last Admin: 09/23/17 21:42 Dose: 1 applic Gabapentin (Neurontin -) 300 mg PO TID [facility] Last Admin: 09/24/17 05:51 Dose: 300 mg Heparin Sodium (Porcine) (Heparin -) 5,000 unit SQ TID [facility] Last Admin: 09/24/17 05:51 Dose: 5,000 unit Sodium Chloride (Normal Saline -) 1,000 mls @ 150 mls/hr IV ASDIR [facility] Last Admin: 09/23/17 18:02 Dose: 150 mls/hr Insulin Aspart (Novolog Vial Sliding Scale -) 1 vial SQ ACHS [facility] PRN Reason: Protocol Last Admin: 09/23/17 22:25 Dose: 2 units Loratadine (Claritin -) 10 mg PO DAILY [facility] Last Admin: 09/23/17 09:42 Dose: 10 mg Methylprednisolone Sodium Succinate (Solu-Medrol -) 40 mg IVPUSH Q6H-IV [facility] Last Admin: 09/24/17 03:09 Dose: 40 mg Metoprolol Tartrate (Lopressor -) 50 mg PO BID [facility] Last Admin: 09/23/17 21:43 Dose: 50 mg Mupirocin (Bactroban Ointment (For Decolonization) -) 1 applic NS BID [facility] Stop: 09/27/17 21:59 Last Admin: 09/23/17 21:41 Dose: 1 applic Nystatin (Nystatin Oral Suspension -) 500,000 units PO Q6HPO [facility] Last Admin: 09/24/17 05:51 Dose: 500,000 units Phenobarbital (Phenobarbital -) 90 mg PO BID [facility] Last Admin: 09/23/17 21:43 Dose: 90 mg Zinc Acetate/Diphenhydramine (Benadryl 2% Cream) 1 applic TP DAILY [facility] Last Admin: 09/23/17 12:06 Dose: 1 applic Constitutional: Yes: Obese, improving diffuse rash on chest (drying) and mild on back, no oral/vaginal lesions Eyes: Yes: Conjunctiva Clear, PERRL HENT: Yes: Atraumatic, Normocephalic Neck: Yes: Supple, Trachea Midline Cardiovascular: Yes: Regular Rate and Rhythm, S1, S2 Respiratory: Yes: Regular, CTA Bilaterally Gastrointestinal: Yes: Soft, Abdomen, Obese Renal/: Yes: Rodríguez Present Extremities: Yes: WNL Edema: Yes Edema: LLE: Trace, RLE: Trace Peripheral Pulses WNL: Yes Integumentary: Yes: Less Erythema, Rash, Skin Tear (Skin drying on upper chest. Antecubital areas with erythema, no blisters noted) Neurological: Yes: WNL, Oriented, non-focal ...Motor Strength: WNL Psychiatric: Yes: Oriented Labs: Laboratory Results - last 24 hr 09/21/17 09/22/17 09/23/17 14:00 08:10 05:20 WBC RBC Hgb Hct MCV MCH MCHC RDW Plt Count MPV Total Counted 100 Neutrophils % Neutrophils % (Manual) 82.0 Band Neutrophils % 15.0 Lymphocytes % Lymphocytes % (Manual) 0.0 L Monocytes % Monocytes % (Manual) 3 L D Eosinophils % Eosinophils % (Manual) 0.0 Basophils % Basophils % (Manual) 0.0 Myelocytes % (Man) 0 Promyelocytes % (Man) 0 Blast Cells % (Manual) 0 Nucleated RBC % 0 Metamyelocytes 0 Platelet Estimate Decreased Sodium Potassium Chloride Carbon Dioxide Anion Gap BUN Creatinine Creat Clearance w eGFR POC Glucometer Random Glucose Lactic Acid Calcium Magnesium Total Bilirubin AST ALT Alkaline Phosphatase Total Protein Albumin Urine Eosinophils None seen Gentamicin Trough Random Vancomycin YOLI Screen Negative Double Strand DNA Ab <1 Hep A IgM Ab Confirm Negative Hepatitis A Ab Total Positive H Hep Bs Antigen Negative Hep Bs Antibody Non reactive Hep B Core Total Ab Negative 09/23/17 09/23/17 09/23/17 10:05 10:05 10:05 WBC RBC Hgb Hct MCV MCH MCHC RDW Plt Count MPV Total Counted Neutrophils % Neutrophils % (Manual) Band Neutrophils % Lymphocytes % Lymphocytes % (Manual) Monocytes % Monocytes % (Manual) Eosinophils % Eosinophils % (Manual) Basophils % Basophils % (Manual) Myelocytes % (Man) Promyelocytes % (Man) Blast Cells % (Manual) Nucleated RBC % Metamyelocytes Platelet Estimate Sodium Potassium Chloride Carbon Dioxide Anion Gap BUN Creatinine Creat Clearance w eGFR POC Glucometer Random Glucose Lactic Acid 2.5 H* Calcium Magnesium Total Bilirubin AST ALT Alkaline Phosphatase Total Protein Albumin Urine Eosinophils Gentamicin Trough 0.7 Random Vancomycin 9.081 YOLI Screen Double Strand DNA Ab Hep A IgM Ab Confirm Hepatitis A Ab Total Hep Bs Antigen Hep Bs Antibody Hep B Core Total Ab 09/23/17 09/24/17 09/24/17 22:23 05:30 05:30 WBC 16.9 H RBC 3.14 L Hgb 10.3 L Hct 30.7 L MCV 97.6 H MCH 32.6 MCHC 33.4 RDW 13.6 Plt Count 107 L MPV 12.0 H Total Counted Neutrophils % 92.5 H D Neutrophils % (Manual) Band Neutrophils % Lymphocytes % 3.4 L D Lymphocytes % (Manual) Monocytes % 3.9 Monocytes % (Manual) Eosinophils % 0.1 D Eosinophils % (Manual) Basophils % 0.1 Basophils % (Manual) Myelocytes % (Man) Promyelocytes % (Man) Blast Cells % (Manual) Nucleated RBC % Metamyelocytes Platelet Estimate Sodium Potassium Chloride Carbon Dioxide Anion Gap BUN Creatinine Creat Clearance w eGFR POC Glucometer 215.42916 Random Glucose Lactic Acid Calcium Magnesium Total Bilirubin AST ALT Alkaline Phosphatase Total Protein Albumin Urine Eosinophils Gentamicin Trough 0.9 Random Vancomycin 12.809 YOLI Screen Double Strand DNA Ab Hep A IgM Ab Confirm Hepatitis A Ab Total Hep Bs Antigen Hep Bs Antibody Hep B Core Total Ab 09/24/17 05:30 WBC RBC Hgb Hct MCV MCH MCHC RDW Plt Count MPV Total Counted Neutrophils % Neutrophils % (Manual) Band Neutrophils % Lymphocytes % Lymphocytes % (Manual) Monocytes % Monocytes % (Manual) Eosinophils % Eosinophils % (Manual) Basophils % Basophils % (Manual) Myelocytes % (Man) Promyelocytes % (Man) Blast Cells % (Manual) Nucleated RBC % Metamyelocytes Platelet Estimate Sodium 143 Potassium 4.2 Chloride 113 H Carbon Dioxide 21 Anion Gap 9 BUN 34 H Creatinine 1.5 H Creat Clearance w eGFR 35.19 POC Glucometer Random Glucose 150 H Lactic Acid Calcium 7.4 L Magnesium 1.9 Total Bilirubin 0.3 D AST 9 L ALT 14 Alkaline Phosphatase 51 Total Protein 5.7 L Albumin 2.5 L Urine Eosinophils Gentamicin Trough Random Vancomycin YOLI Screen Double Strand DNA Ab Hep A IgM Ab Confirm Hepatitis A Ab Total Hep Bs Antigen Hep Bs Antibody Hep B Core Total Ab Problem List - Problems (1) Acute kidney injury Code(s): N17.9 - ACUTE KIDNEY FAILURE, UNSPECIFIED (2) Drug rash Code(s): L27.0 - GEN SKIN ERUPTION DUE TO DRUGS AND MEDS TAKEN INTERNALLY (3) Lactic acidosis Code(s): E87.2 - ACIDOSIS (4) Sepsis Code(s): A41.9 - SEPSIS, UNSPECIFIED ORGANISM (5) UTI (urinary tract infection) Code(s): N39.0 - URINARY TRACT INFECTION, SITE NOT SPECIFIED (6) Bariatric surgery status Code(s): Z98.84 - BARIATRIC SURGERY STATUS (7) Diabetes Code(s): E11.9 - TYPE 2 DIABETES MELLITUS WITHOUT COMPLICATIONS Qualifiers: Diabetes mellitus type: type 2 Chronic kidney disease stage: stage 1 Assessment/Plan Improving Rash: likely due to drug reaction R/O Tone Sanchez (low suspicion) E Coli UTI Plan: -Benadryl and steroids for drug reaction -ABX per ID -IVF at 150cc/h -Monitor BMP and UOP -Glycemic control -ICU monitoring Dr Alonzo Critical care time spent in reviewing chart, evaluating patient and formulating plan - 36 minutes.
--- NOTE | 2017-09-24 09:11 | PN ---
Progress Note (short form) - Note Progress Note: alert looks much more comfortable today less periorbital swelling Vital Signs Period Temp Pulse Resp BP Sys/Smith Pulse Ox Last 24 Hr 98.4 F-98.8 F 60-102 10-21 144-190/62-109 100-100 cor-rrr lungs clear abd soft,nt ext no edema +erythema of the arms, chest and trunk- less red pryor CBC, BMP 09/24/17 05:30 09/24/17 05:30 Laboratory Tests 09/24/17 05:30 Gentamicin Trough 0.9 Random Vancomycin 12.809 Microbiology 09/21/17 02:35 Blood - Peripheral Venous Blood Culture - Preliminary NO GROWTH OBTAINED AFTER 72 HOURS, INCUBATION TO CONTINUE FOR 2 DAYS. 09/21/17 02:35 Blood - Peripheral Venous Blood Culture - Preliminary NO GROWTH OBTAINED AFTER 72 HOURS, INCUBATION TO CONTINUE FOR 2 DAYS. 09/21/17 13:00 Urine - Urine - Catheterized Urine Culture - Final NO GROWTH OBTAINED 09/17/17 22:45 Urine - Urine Clean Catch Urine Culture - Final Escherichia Coli a/p drug pvep-fkrseljkuql-[id number] fevers-resolved ak-resolving ecoli uti-redose gentamicin- day #5 thrombocytopenia- improved overall improved agree with allergy testing as an outpt Problem List - Problems (1) Sepsis Code(s): A41.9 - SEPSIS, UNSPECIFIED ORGANISM (2) Drug rash Code(s): L27.0 - GEN SKIN ERUPTION DUE TO DRUGS AND MEDS TAKEN INTERNALLY (3) Acute kidney injury Code(s): N17.9 - ACUTE KIDNEY FAILURE, UNSPECIFIED (4) Lactic acidosis Code(s): E87.2 - ACIDOSIS
[2017-09-24] MEDS ORDERED: GENTAMICIN 80 MG PREMIXED IVPB 80 MG/100 ML BAG IVPB ONE (09:14)
[2017-09-24] MEDS ORDERED: SODIUM CHLORIDE 1,000 ML IV SCH (09:23)
[2017-09-24] MEDS: PHENobarbital 30 MG TABLET PO SCH ×2 (09:24→23:34)
[2017-09-24] MEDS: METOPROLOL TARTRATE 50 MG TABLET (FP) PO SCH ×2 (09:26→22:14)
[2017-09-24] MEDS: LORATADINE 10 MG TABLET PO SCH (09:30)
[2017-09-24] MEDS: MUPIROCIN 2% TOPICAL OINTMENT FOR DECOLONIZATION NS SCH ×2 (09:37→22:13)
[2017-09-24] MEDS: FLUOCINONIDE 0.05% TOP OINT (60 GM TUBE) TP SCH ×2 (10:28→22:14)
[2017-09-24] MEDS: amLODIPine BESYLATE 5 MG TABLET (FP) PO SCH (12:39)
--- NOTE | 2017-09-24 14:28 | PN ---
Progress Note, Physician History of Present Illness: Pt seen and examined at bedside. She is awake and alert. She denies shortness of breath. - Current Medication List Current Medications: Active Medications Acetaminophen (Tylenol -) 650 mg PO Q6H PRN PRN Reason: FEVER Amlodipine Besylate (Norvasc -) 5 mg PO DAILY [facility] Last Admin: 09/24/17 12:39 Dose: 5 mg Atorvastatin Calcium (Lipitor -) 40 mg PO HS [facility] Last Admin: 09/23/17 21:43 Dose: 40 mg Chlorhexidine Gluconate (Hibiclens For Decolonization -) 1 applic TP HS [facility] Last Admin: 09/23/17 21:42 Dose: 1 applic Diphenhydramine HCl (Benadryl Injection -) 25 mg IVPUSH Q6H PRN PRN Reason: FOR ITCHING Last Admin: 09/24/17 10:51 Dose: 25 mg Fluocinonide (Lidex 0.05% Ointment -) 1 applic TP BID [facility] Last Admin: 09/24/17 10:28 Dose: 1 applic Gabapentin (Neurontin -) 300 mg PO TID [facility] Last Admin: 09/24/17 13:30 Dose: 300 mg Heparin Sodium (Porcine) (Heparin -) 5,000 unit SQ TID [facility] Last Admin: 09/24/17 13:29 Dose: 5,000 unit Sodium Chloride (Normal Saline -) 1,000 mls @ 100 mls/hr IV ASDIR [facility] Last Admin: 09/24/17 09:39 Dose: 100 mls/hr Insulin Aspart (Novolog Vial Sliding Scale -) 1 vial SQ ACHS [facility] PRN Reason: Protocol Last Admin: 09/24/17 11:30 Dose: Not Given Loratadine (Claritin -) 10 mg PO DAILY [facility] Last Admin: 09/24/17 09:30 Dose: 10 mg Methylprednisolone Sodium Succinate (Solu-Medrol -) 40 mg IVPUSH Q6H-IV [facility] Last Admin: 09/24/17 09:24 Dose: 40 mg Metoprolol Tartrate (Lopressor -) 50 mg PO BID [facility] Last Admin: 09/24/17 09:26 Dose: 50 mg Mupirocin (Bactroban Ointment (For Decolonization) -) 1 applic NS BID [facility] Stop: 09/27/17 21:59 Last Admin: 09/24/17 09:37 Dose: 1 applic Nystatin (Nystatin Oral Suspension -) 500,000 units PO Q6HPO [facility] Last Admin: 09/24/17 12:41 Dose: 500,000 units Phenobarbital (Phenobarbital -) 90 mg PO BID [facility] Last Admin: 09/24/17 09:24 Dose: 90 mg Zinc Acetate/Diphenhydramine (Benadryl 2% Cream) 1 applic TP DAILY [facility] Last Admin: 09/24/17 13:29 Dose: 1 applic - Objective Vital Signs: Vital Signs Temperature 98.4 F 09/24/17 12:00 Pulse Rate 70 09/24/17 12:00 Respiratory Rate 20 09/24/17 10:00 Blood Pressure 199/102 09/24/17 12:00 O2 Sat by Pulse Oximetry (%) 100 09/24/17 10:00 Constitutional: Yes: Calm Eyes: Yes: Conjunctiva Clear HENT: Yes: Atraumatic Neck: Yes: Supple Cardiovascular: Yes: S1, S2 Respiratory: Yes: CTA Bilaterally Gastrointestinal: Yes: Soft, Abdomen, Obese Genitourinary: Yes: Rodríguez Present Musculoskeletal: Yes: WNL Edema: Yes Edema: LLE: Trace, RLE: Trace Integumentary: Yes: Rash Neurological: Yes: Oriented Psychiatric: Yes: Oriented Labs: CBC, BMP 09/24/17 05:30 09/24/17 05:30 Problem List - Problems (1) Acute kidney injury Code(s): N17.9 - ACUTE KIDNEY FAILURE, UNSPECIFIED (2) Lactic acidosis Code(s): E87.2 - ACIDOSIS (3) Sepsis Code(s): A41.9 - SEPSIS, UNSPECIFIED ORGANISM (4) UTI (urinary tract infection) Code(s): N39.0 - URINARY TRACT INFECTION, SITE NOT SPECIFIED (5) Bariatric surgery status Code(s): Z98.84 - BARIATRIC SURGERY STATUS (6) Diabetes Code(s): E11.9 - TYPE 2 DIABETES MELLITUS WITHOUT COMPLICATIONS Qualifiers: Diabetes mellitus type: type 2 Chronic kidney disease stage: stage 1 (7) Hyperlipidemia Code(s): E78.5 - HYPERLIPIDEMIA, UNSPECIFIED Qualifiers: Hyperlipidemia type: mixed hyperlipidemia Qualified Code(s): E78.2 - Mixed hyperlipidemia (8) Hypertension Code(s): I10 - ESSENTIAL (PRIMARY) HYPERTENSION Qualifiers: Hypertension type: essential hypertension Qualified Code(s): I10 - Essential (primary) hypertension (9) Morbid (severe) obesity due to excess calories Code(s): E66.01 - MORBID (SEVERE) OBESITY DUE TO EXCESS CALORIES Assessment/Plan Current Medications Generic Name Dose Route Start Last Admin Trade Name Freq PRN Reason Stop Dose Admin Acetaminophen 650 mg 09/22/17 18:14 Tylenol - PO Q6H PRN FEVER Amlodipine Besylate 5 mg 09/24/17 12:30 09/24/17 12:39 Norvasc - PO 5 mg DAILY PÉREZ Administration Atorvastatin Calcium 40 mg 09/22/17 22:00 09/23/17 21:43 Lipitor - PO 40 mg HS PÉREZ Administration Chlorhexidine Gluconate 1 applic 09/22/17 22:00 09/23/17 21:42 Hibiclens For Decolonization - TP 1 applic HS PÉREZ Administration Diphenhydramine HCl 25 mg 09/22/17 18:14 09/24/17 10:51 Benadryl Injection - IVPUSH 25 mg Q6H PRN Administration FOR ITCHING Fluocinonide 1 applic 09/22/17 15:15 09/24/17 10:28 Lidex 0.05% Ointment - TP 1 applic BID PÉREZ Administration Gabapentin 300 mg 09/22/17 22:00 09/24/17 13:30 Neurontin - PO 300 mg TID PÉREZ Administration Heparin Sodium (Porcine) 5,000 unit 09/22/17 22:00 09/24/17 13:29 Heparin - SQ 5,000 unit TID PÉREZ Administration Sodium Chloride 1,000 mls @ 100 mls/hr 09/24/17 09:23 09/24/17 09:39 Normal Saline - IV 100 mls/hr ASDIR PÉREZ Administration Insulin Aspart 1 vial 09/22/17 22:00 09/24/17 11:30 Novolog Vial Sliding Scale - SQ Not Given ACHS PÉREZ Protocol Loratadine 10 mg 09/23/17 10:00 09/24/17 09:30 Claritin - PO 10 mg DAILY PÉREZ Administration Methylprednisolone Sodium Succinate 40 mg 09/22/17 21:00 09/24/17 09:24 Solu-Medrol - IVPUSH 40 mg Q6H-IV PÉREZ Administration Metoprolol Tartrate 50 mg 09/23/17 22:00 09/24/17 09:26 Lopressor - PO 50 mg BID PÉREZ Administration Mupirocin 1 applic 09/23/17 14:20 09/24/17 09:37 Bactroban Ointment (For Decolonization) - NS 09/27/17 21:59 1 applic BID PÉREZ Administration Nystatin 500,000 units 09/23/17 00:00 09/24/17 12:41 Nystatin Oral Suspension - PO 500,000 units Q6HPO PÉREZ Administration Phenobarbital 90 mg 09/22/17 22:00 09/24/17 09:24 Phenobarbital - PO 90 mg BID PÉREZ Administration Zinc Acetate/Diphenhydramine 1 applic 09/23/17 10:00 09/24/17 13:29 Benadryl 2% Cream TP 1 applic DAILY PÉREZ Administration Laboratory Tests 09/21/17 09/22/17 14:00 08:10 Urine Eosinophils None seen Double Strand DNA Ab <1 Hep Bs Antigen Negative Hep Bs Antibody Non reactive Hep B Core Total Ab Negative Impression 1. BELEM 2. CKD 3. sepsis 4. hypotension 5. rash 6. possible drug reaction 7. obesity 8. DM 9. hx htn 10. lactic acidosis 11. prolonged qt Plan - blood pressure is improved and pt is actually hypertensive - restart amlodpine - can decrease rate of fluids - renal function is improving - urine eos negative - derm input appreciated - pt clinically is improving - FENa was about 0.14 - ICU monitoring
[2017-09-24] MEDS ORDERED: METOPROLOL TARTRATE 5 MG/5 ML VIAL IVPUSH ONE (15:50)
[2017-09-24] MEDS ORDERED: METOPROLOL TARTRATE 5 MG/5 ML VIAL ONE (15:52)
[2017-09-24] MEDS: SODIUM CHLORIDE 1,000 ML IV SCH (15:54)
[2017-09-24] MEDS ORDERED: hydrALAZINE HCL 20 MG/ML VIAL IVPUSH ONE (15:58)
--- NOTE | 2017-09-24 17:08 | PN ---
Progress Note (short form) - Note Progress Note: Subjective: The patient was seen and examined at the bedside, she has no complaints at this time. Current Medications Generic Name Dose Route Start Last Admin Trade Name Freq PRN Reason Stop Dose Admin Acetaminophen 650 mg 09/22/17 18:14 Tylenol - PO Q6H PRN FEVER Amlodipine Besylate 5 mg 09/24/17 12:30 09/24/17 12:39 Norvasc - PO 5 mg DAILY PÉREZ Administration Atorvastatin Calcium 40 mg 09/22/17 22:00 09/23/17 21:43 Lipitor - PO 40 mg HS PÉREZ Administration Chlorhexidine Gluconate 1 applic 09/22/17 22:00 09/23/17 21:42 Hibiclens For Decolonization - TP 1 applic HS PÉREZ Administration Diphenhydramine HCl 25 mg 09/22/17 18:14 09/24/17 10:51 Benadryl Injection - IVPUSH 25 mg Q6H PRN Administration FOR ITCHING Fluocinonide 1 applic 09/22/17 15:15 09/24/17 10:28 Lidex 0.05% Ointment - TP 1 applic BID PÉREZ Administration Gabapentin 300 mg 09/22/17 22:00 09/24/17 13:30 Neurontin - PO 300 mg TID PÉREZ Administration Heparin Sodium (Porcine) 5,000 unit 09/22/17 22:00 09/24/17 13:29 Heparin - SQ 5,000 unit TID PÉREZ Administration Sodium Chloride 1,000 mls @ 75 mls/hr 09/24/17 15:46 09/24/17 15:54 Normal Saline - IV 75 mls/hr ASDIR PÉREZ Administration Insulin Aspart 1 vial 09/22/17 22:00 09/24/17 16:43 Novolog Vial Sliding Scale - SQ Not Given ACHS PÉREZ Protocol Loratadine 10 mg 09/23/17 10:00 09/24/17 09:30 Claritin - PO 10 mg DAILY PÉREZ Administration Methylprednisolone Sodium Succinate 40 mg 09/22/17 21:00 09/24/17 15:50 Solu-Medrol - IVPUSH 40 mg Q6H-IV PÉREZ Administration Metoprolol Tartrate 50 mg 09/23/17 22:00 09/24/17 09:26 Lopressor - PO 50 mg BID PÉREZ Administration Mupirocin 1 applic 09/23/17 14:20 09/24/17 09:37 Bactroban Ointment (For Decolonization) - NS 09/27/17 21:59 1 applic BID PÉREZ Administration Nystatin 500,000 units 09/23/17 00:00 09/24/17 12:41 Nystatin Oral Suspension - PO 500,000 units Q6HPO PÉREZ Administration Phenobarbital 90 mg 09/22/17 22:00 09/24/17 09:24 Phenobarbital - PO 90 mg BID PÉREZ Administration Zinc Acetate/Diphenhydramine 1 applic 09/23/17 10:00 09/24/17 13:29 Benadryl 2% Cream TP 1 applic DAILY PÉREZ Administration Objective: Vital Signs Period Temp Pulse Resp BP Sys/Smith Pulse Ox Last 24 Hr 96.7 F-98.9 F 60-102 16-21 149-199/68-109 100-100 Physical Exam: General: NAD, lethargic HEENT: periorbital edema. +thrush Lungs: CTA bilaterally Heart: RRR, S1S2 Abd: Soft, non-tender, Non-distended : Rodríguez catheter in place with clear, yellow urine Skin: Erythema on chest and around neck, b/l antecubital fossa, b/l axilla, b/l thighs. Pustules resolved CBCD WBC 16.9 K/mm3 (4.0-10.0) H 09/24/17 05:30 RBC 3.14 M/mm3 (3.60-5.2) L 09/24/17 05:30 Hgb 10.3 GM/dL (10.7-15.3) L 09/24/17 05:30 Hct 30.7 % (32.4-45.2) L 09/24/17 05:30 MCV 97.6 fl (80-96) H 09/24/17 05:30 MCHC 33.4 g/dl (32.0-36.0) 09/24/17 05:30 RDW 13.6 % (11.6-15.6) 09/24/17 05:30 Plt Count 107 K/MM3 (134-434) L 09/24/17 05:30 MPV 12.0 fl (7.5-11.1) H 09/24/17 05:30 CMP Sodium 143 mmol/L (136-145) 09/24/17 05:30 Potassium 4.2 mmol/L (3.5-5.1) 09/24/17 05:30 Chloride 113 mmol/L (98-107) H 09/24/17 05:30 Carbon Dioxide 21 mmol/L (21-32) 09/24/17 05:30 Anion Gap 9 (8-16) 09/24/17 05:30 BUN 34 mg/dL (7-18) H 09/24/17 05:30 Creatinine 1.5 mg/dL (0.55-1.02) H 09/24/17 05:30 Creat Clearance w eGFR 35.19 (>60) 09/24/17 05:30 Random Glucose 150 mg/dL (74-106) H 09/24/17 05:30 Calcium 7.4 mg/dL (8.5-10.1) L 09/24/17 05:30 Total Bilirubin 0.3 mg/dL (0.2-1.0) D 09/24/17 05:30 AST 9 U/L (15-37) L 09/24/17 05:30 ALT 14 U/L (12-78) 09/24/17 05:30 Alkaline Phosphatase 51 U/L (45-117) 09/24/17 05:30 Total Protein 5.7 g/dl (6.4-8.2) L 09/24/17 05:30 Albumin 2.5 g/dl (3.4-5.0) L 09/24/17 05:30 CARDIAC ENZYMES Creatine Kinase 321 IU/L (26-192) H 09/17/17 22:35 Troponin I < 0.02 ng/ml (0.00-0.05) 09/18/17 18:05 Microbiology 09/21/17 02:35 Blood - Peripheral Venous Blood Culture - Preliminary NO GROWTH OBTAINED AFTER 72 HOURS, INCUBATION TO CONTINUE FOR 2 DAYS. 09/21/17 02:35 Blood - Peripheral Venous Blood Culture - Preliminary NO GROWTH OBTAINED AFTER 72 HOURS, INCUBATION TO CONTINUE FOR 2 DAYS. 09/21/17 13:00 Urine - Urine - Catheterized Urine Culture - Final NO GROWTH OBTAINED 09/17/17 22:45 Urine - Urine Clean Catch Urine Culture - Final Escherichia Coli Assessment: This is a 62 year old female with PMHx of DM II, HTN, morbid obesity , cholecystectomy, gastric sleeve 2017, epilepsy (last seizure 4 years ago) presented with nausea, vomiting. Plan: 1) Acute generalized exanthematous pustulosis - Likely 2/2 Ceftriaxone - Improving, pustules resolved, now with erythema and maceration - Continue systemic steroids - Continue Lidex - Benadryl for itching - Outpatient allergy testing - Appreciate dermatology consult 2) Severe sepsis 2/2 e.coli UTI - Continue Gentamycin - Trend fever curve, Tylenol prn - Appreciate ID consult 3) BELEM on CKD - Hx of HD in 2005 - Likely prerenal 2/2 episode of hypotension on 09/21 - Rodríguez catheter maintained for accurate output - Urine output 4.1L today! - Cr stable 1.5 today - Kidney ultrasound: both kidneys appear unremarkable, no hydronephrosis noted - Appreciate nephrology consult 4) Nausea/vomiting - Resolved 5) Prolonged qtc - Avoid all agents that prolong qtc 6) HTN - Hold 2/2 severe sepsis 7) Epilepsy - Continue Phenobarbital 8) DM - BGM ACHS - ISS ACHS 9) F/E/N: - Renal diet - Monitor electrolytes 10) Prophylaxis: - Heparin 5,000u sq tid 11) Dispo: - Requires continued inpatient care CODE STATUS: FULL CODE Visit type - Emergency Visit Emergency Visit: Yes ED Registration Date: 09/21/17 Care time: The patient presented to the Emergency Department on the above date and was hospitalized for further evaluation of their emergent condition. - New Patient This patient is new to me today: No - Critical Care Critical Care patient: No
--- NOTE | 2017-09-24 21:47 | EKG ---
Test Reason : Blood Pressure : / mmHG Vent. Rate : 081 BPM Atrial Rate : 096 BPM P-R Int : 198 ms QRS Dur : 140 ms QT Int : 428 ms P-R-T Axes : 055 -60 064 degrees QTc Int : 497 ms NORMAL SINUS RHYTHM mobitz type I HB LEFT AXIS DEVIATION RIGHT BUNDLE BRANCH BLOCK MINIMAL VOLTAGE CRITERIA FOR LVH, MAY BE NORMAL VARIANT INFERIOR INFARCT , AGE UNDETERMINED CANNOT RULE OUT ANTERIOR INFARCT , AGE UNDETERMINED ABNORMAL ECG WHEN COMPARED WITH ECG OF 22-SEP-2017 15:36, [place] INTERVAL HAS INCREASED QUESTIONABLE CHANGE IN QRS DURATION MINIMAL CRITERIA FOR ANTERIOR INFARCT ARE NOW PRESENT INFERIOR INFARCT IS NOW PRESENT Confirmed by MINH HAIR, TRISTA ([id number]) on 09/24/2017 9:47:29 PM Referred By: Confirmed By:TRISTA WILKINSON MD
[2017-09-24] MEDS: CHLORHEXIDINE GLUCONATE 4% CLEANSER FOR DECOLONIZATION TP SCH (22:14)
[2017-09-24] MEDS: ATORVASTATIN CA 40 MG TABLET (FP) PO SCH (22:14)
[2017-09-24] MEDS ORDERED: hydrALAZINE HCL 20 MG/ML VIAL ONE (23:32)
[2017-09-24] MEDS ORDERED: HEMOQUE TEST 1 EACH EACH ONE (23:45)
[2017-09-25] MEDS: INSULIN SLIDING SCALE (NOVOLOG) 1 VIAL SQ SCH ×6 (00:12→21:51)
[2017-09-25] MEDS: NYSTATIN 500,000 UNITS/5 ML SUSPENSION PO SCH ×5 (00:32→18:14)
[2017-09-25] MEDS: methylPREDNISolone NA SUCC 40 MG/1 ML VIAL IVPUSH SCH (02:55)
[2017-09-25] MEDS: HEPARIN NA (PORCINE) 5,000 UNITS/ML 1ML VIAL SQ SCH ×4 (05:38→21:50)
[2017-09-25] MEDS: GABAPENTIN 300 MG CAPSULE (FP) PO SCH ×4 (05:39→21:50)
[2017-09-25] MEDS ORDERED: hydrALAZINE HCL 20 MG/ML VIAL IVPUSH ONE ×2 (05:48→17:12)
[2017-09-25 06:11] LABS: HEMATOCRIT 33.2 % (32.4-45.2); HEMOGLOBIN 11.5 GM/dL (10.7-15.3); MCH 33.6 pg (25.7-33.7); MCHC 34.5 g/dl (32.0-36.0); MEAN CELL VOLUME 97.2 fl (80-96); MEAN PLT VOLUME 12.6 fl (7.5-11.1); PLATELET COUNT 128 K/MM3 (134-434); RBC 3.42 M/mm3 (3.60-5.2); RDW 13.4 % (11.6-15.6); WHITE BLOOD COUNT 18.1 K/mm3 (4.0-10.0)
[2017-09-25 06:40] LABS: ALBUMIN 2.7 g/dl (3.4-5.0); ANION GAP 8 (8-16); BLOOD UREA NITROGEN 28 mg/dL (7-18); CALCIUM 7.6 mg/dL (8.5-10.1); CHLORIDE 109 mmol/L (98-107); CO2 26 mmol/L (21-32); GLUCOSE,RANDOM 150 mg/dL (74-106); MAGNESIUM 1.6 mg/dL (1.8-2.4); POTASSIUM 4.3 mmol/L (3.5-5.1); SODIUM 143 mmol/L (136-145)
[2017-09-25 06:43] LABS: ALK PHOS 60 U/L (45-117); BILIRUBIN,TOTAL 0.4 mg/dL (0.2-1.0); CREATININE 1.3 mg/dL (0.55-1.02); SGOT/AST 11 U/L (15-37); SGPT/ALT 17 U/L (12-78); TOT PROT 6.2 g/dl (6.4-8.2)
--- NOTE | 2017-09-25 06:44 | PN ---
Progress Note, Physician Chief Complaint: ID Solumedrol 40 q 6 H Gentamicin Offers no complaints Rash improving - Current Medication List Current Medications: Active Medications Acetaminophen (Tylenol -) 650 mg PO Q6H PRN PRN Reason: FEVER Amlodipine Besylate (Norvasc -) 5 mg PO DAILY [facility] Last Admin: 09/24/17 12:39 Dose: 5 mg Atorvastatin Calcium (Lipitor -) 40 mg PO HS [facility] Last Admin: 09/24/17 22:14 Dose: 40 mg Chlorhexidine Gluconate (Hibiclens For Decolonization -) 1 applic TP HS [facility] Last Admin: 09/24/17 22:14 Dose: 1 applic Diphenhydramine HCl (Benadryl Injection -) 25 mg IVPUSH Q6H PRN PRN Reason: FOR ITCHING Last Admin: 09/24/17 10:51 Dose: 25 mg Fluocinonide (Lidex 0.05% Ointment -) 1 applic TP BID [facility] Last Admin: 09/24/17 22:14 Dose: 1 applic Gabapentin (Neurontin -) 300 mg PO TID [facility] Last Admin: 09/25/17 05:39 Dose: 300 mg Heparin Sodium (Porcine) (Heparin -) 5,000 unit SQ TID [facility] Last Admin: 09/25/17 05:38 Dose: 5,000 unit Sodium Chloride (Normal Saline -) 1,000 mls @ 75 mls/hr IV ASDIR [facility] Last Admin: 09/24/17 15:54 Dose: 75 mls/hr Insulin Aspart (Novolog Vial Sliding Scale -) 1 vial SQ ACHS [facility] PRN Reason: Protocol Last Admin: 09/25/17 00:12 Dose: 2 units Loratadine (Claritin -) 10 mg PO DAILY [facility] Last Admin: 09/24/17 09:30 Dose: 10 mg Methylprednisolone Sodium Succinate (Solu-Medrol -) 40 mg IVPUSH Q6H-IV [facility] Last Admin: 09/25/17 02:55 Dose: 40 mg Metoprolol Tartrate (Lopressor -) 50 mg PO BID [facility] Last Admin: 09/24/17 22:14 Dose: 50 mg Mupirocin (Bactroban Ointment (For Decolonization) -) 1 applic NS BID [facility] Stop: 09/27/17 21:59 Last Admin: 09/24/17 22:13 Dose: 1 applic Nystatin (Nystatin Oral Suspension -) 500,000 units PO Q6HPO [facility] Last Admin: 09/25/17 05:38 Dose: 500,000 units Phenobarbital (Phenobarbital -) 90 mg PO BID [facility] Last Admin: 09/24/17 23:34 Dose: 90 mg Zinc Acetate/Diphenhydramine (Benadryl 2% Cream) 1 applic TP DAILY [facility] Last Admin: 09/24/17 13:29 Dose: 1 applic - Objective Vital Signs: Vital Signs Temperature 98.6 F 09/25/17 06:00 Pulse Rate 70 09/25/17 06:00 Respiratory Rate 21 09/25/17 06:00 Blood Pressure 148/84 09/25/17 06:00 O2 Sat by Pulse Oximetry (%) 100 09/24/17 21:00 Constitutional: Yes: No Distress, Obese HENT: Yes: WNL, Atraumatic Neck: Yes: WNL, Supple Cardiovascular: Yes: S1, S2 Respiratory: Yes: WNL, Regular, CTA Bilaterally Gastrointestinal: Yes: WNL, Normal Bowel Sounds, Soft. No: Tenderness, Tenderness, Rebound Edema: No Integumentary: Yes: Rash Labs: CBC, BMP 09/25/17 05:13 Assessment/Plan Microbiology 09/21/17 13:00 Urine - Urine - Catheterized Urine Culture - Final NO GROWTH OBTAINED 09/17/17 22:45 Urine - Urine Clean Catch Urine Culture - Final Escherichia Coli 09/21/17 02:35 Blood - Peripheral Venous Blood Culture - Preliminary NO GROWTH OBTAINED AFTER 96 HOURS, INCUBATION TO CONTINUE FOR 1 DAYS. 09/21/17 02:35 Blood - Peripheral Venous Blood Culture - Preliminary NO GROWTH OBTAINED AFTER 96 HOURS, INCUBATION TO CONTINUE FOR 1 DAYS. Laboratory Tests 09/24/17 09/24/17 09/25/17 05:30 05:30 05:13 WBC 18.1 H Hgb 11.5 D Plt Count 128 L BUN 34 H Creatinine 1.5 H AST ALT Alkaline Phosphatase Gentamicin Trough 0.9 09/25/17 05:13 WBC Hgb Plt Count BUN Pending Creatinine Pending AST Pending ALT Pending Alkaline Phosphatase Pending Gentamicin Trough Assessment Pansensitive urinary tact E Coli infection now on Gent daily Acute kidney injury Beta lactam rah Ceftriaxone improving on steroids Plan Would redose Gent today 80mg but stop there as last dose and decrease her steroids to oral 20mg and taper for rash Kaye HAIR
[2017-09-25] MEDS ORDERED: GENTAMICIN 80 MG PREMIXED IVPB 80 MG/100 ML BAG IVPB ONE (06:51)
[2017-09-25] MEDS ORDERED: NAPH,MB-DB/K PH,MBDB POWDER PACKET PO ONE (07:45)
[2017-09-25] MEDS ORDERED: MAGNESIUM SULF 50% (8.12 MEQ/2 ML-1 GM VIAL) IVPB ONE (08:00)
[2017-09-25] MEDS: LORATADINE 10 MG TABLET PO SCH (09:09)
[2017-09-25] MEDS: METOPROLOL TARTRATE 50 MG TABLET (FP) PO SCH (09:10)
[2017-09-25] MEDS: amLODIPine BESYLATE 5 MG TABLET (FP) PO SCH (09:10)
[2017-09-25] MEDS: PHENobarbital 30 MG TABLET PO SCH ×3 (09:11→21:51)
[2017-09-25] MEDS ORDERED: predniSONE 20 MG TABLET (UD) PO SCH (10:00)
[2017-09-25 10:30] LABS: PLATELET ESTIMATE DECREASED
[2017-09-25] MEDS: MUPIROCIN 2% TOPICAL OINTMENT FOR DECOLONIZATION NS SCH (11:00)
--- NOTE | 2017-09-25 11:29 | PN ---
Teaching Attending Note Name of Resident: Sarah Baugh ATTENDING PHYSICIAN STATEMENT I saw and evaluated the patient. I reviewed the resident's note and discussed the case with the resident. I agree with the resident's findings and plan as documented. SUBJECTIVE: Pt seen and examined in the ICU. Rash improving. Denies fevers or chills. No shortness of breath or chest pain. OBJECTIVE: Last Vital Signs Temp Pulse Resp BP Pulse Ox 98.6 F 70 21 148/84 98 09/25/17 06:00 09/25/17 06:00 09/25/17 06:00 09/25/17 06:00 09/25/17 07:48 Intake & Output 09/22/17 09/23/17 09/24/17 09/25/17 23:59 23:59 23:59 23:59 Intake Total 4275 1700 4585 1650 Output Total 061 367 8774 3000 Balance 3475 900 -4015 -1350 Weight 120.4 g 121.818 kg 119.8 kg 114.5 kg Gen: NAD at rest Heart: RRR Lung: decreased breath sounds at the bases Abd: soft, nontender Ext: no edema Skin: mild erythema, sloughing CBC, BMP 09/25/17 05:13 09/25/17 05:13 Active Medications Acetaminophen (Tylenol -) 650 mg PO Q6H PRN PRN Reason: FEVER Amlodipine Besylate (Norvasc -) 5 mg PO DAILY [facility] Last Admin: 09/25/17 09:10 Dose: 5 mg Atorvastatin Calcium (Lipitor -) 40 mg PO HS [facility] Last Admin: 09/24/17 22:14 Dose: 40 mg Chlorhexidine Gluconate (Hibiclens For Decolonization -) 1 applic TP HS [facility] Last Admin: 09/24/17 22:14 Dose: 1 applic Diphenhydramine HCl (Benadryl Injection -) 25 mg IVPUSH Q6H PRN PRN Reason: FOR ITCHING Last Admin: 09/24/17 10:51 Dose: 25 mg Fluocinonide (Lidex 0.05% Ointment -) 1 applic TP BID [facility] Last Admin: 09/24/17 22:14 Dose: 1 applic Gabapentin (Neurontin -) 300 mg PO TID [facility] Last Admin: 09/25/17 05:39 Dose: 300 mg Heparin Sodium (Porcine) (Heparin -) 5,000 unit SQ TID [facility] Last Admin: 09/25/17 05:38 Dose: 5,000 unit Sodium Chloride (Normal Saline -) 1,000 mls @ 75 mls/hr IV ASDIR [facility] Last Admin: 09/24/17 15:54 Dose: 75 mls/hr Insulin Aspart (Novolog Vial Sliding Scale -) 1 vial SQ ACHS [facility] PRN Reason: Protocol Last Admin: 09/25/17 06:41 Dose: Not Given Loratadine (Claritin -) 10 mg PO DAILY [facility] Last Admin: 09/25/17 09:09 Dose: 10 mg Metoprolol Succinate (Toprol Xl -) 100 mg PO BID [facility] Mupirocin (Bactroban Ointment (For Decolonization) -) 1 applic NS BID [facility] Stop: 09/27/17 21:59 Last Admin: 09/24/17 22:13 Dose: 1 applic Nystatin (Nystatin Oral Suspension -) 500,000 units PO Q6HPO [facility] Last Admin: 09/25/17 05:38 Dose: 500,000 units Phenobarbital (Phenobarbital -) 90 mg PO BID [facility] Last Admin: 09/25/17 09:11 Dose: 90 mg Prednisone (Deltasone -) 20 mg PO DAILY [facility] Last Admin: 09/25/17 09:15 Dose: 20 mg Zinc Acetate/Diphenhydramine (Benadryl 2% Cream) 1 applic TP DAILY [facility] Last Admin: 09/24/17 13:29 Dose: 1 applic ASSESSMENT AND PLAN: UTI Sepsis Acute on Chronic Renal Failure improving Drug Rash HTN DM Seizure Disorder - continue prednisone, benadryl - antibiotics per ID - skin care - PO as tolerated - increase BP meds - decrease IVF rate - can monitor on floor Problem List - Problems (1) UTI (urinary tract infection) Code(s): N39.0 - URINARY TRACT INFECTION, SITE NOT SPECIFIED (2) Sepsis Code(s): A41.9 - SEPSIS, UNSPECIFIED ORGANISM (3) Acute kidney injury Code(s): N17.9 - ACUTE KIDNEY FAILURE, UNSPECIFIED (4) Diabetes Code(s): E11.9 - TYPE 2 DIABETES MELLITUS WITHOUT COMPLICATIONS Qualifiers: Diabetes mellitus type: type 2 Chronic kidney disease stage: stage 1 (5) Hyperlipidemia Code(s): E78.5 - HYPERLIPIDEMIA, UNSPECIFIED Qualifiers: Hyperlipidemia type: mixed hyperlipidemia Qualified Code(s): E78.2 - Mixed hyperlipidemia (6) Hypertension Code(s): I10 - ESSENTIAL (PRIMARY) HYPERTENSION Qualifiers: Hypertension type: essential hypertension Qualified Code(s): I10 - Essential (primary) hypertension (7) Lactic acidosis Code(s): E87.2 - ACIDOSIS
[2017-09-25] MEDS: SODIUM CHLORIDE 1,000 ML IV SCH ×3 (11:59→17:09)
--- NOTE | 2017-09-25 12:06 | PN ---
Physical Exam: SUBJECTIVE: Patient seen and examined. No acute events overnight. Patient offers no new complaints. Says her rash is improving. Denies sob, chest pain, nausea, vomiting, lightheadedness. OBJECTIVE: Vital Signs Period Temp Pulse Resp BP Sys/Smith Pulse Ox Last 24 Hr 97.9 F-98.7 F 62-88 16-21 148-194/60-105 98-100 GENERAL: Appears comfortable, NAD, A/o x 3 EYES: extraocular movements intact, sclera anicteric, conjunctiva clear. ENT: oropharynx clear without exudates, moist mucous membranes. NECK: supple. LUNGS: decreased BS at bases HEART: Regular rate and rhythm, no murmurs appreciated ABDOMEN: obese, Soft, nontender,normoactive bowel sounds, no guarding EXTREMITIES: 2+ pulses, warm, no edema. NEUROLOGICAL: Cranial nerves II through XII grossly intact PSYCH: Normal mood, normal affect. SKIN: mild erythema around chest, neck, b/l axilla and thighs with improvement. Laboratory Results - last 24 hr 09/23/17 09/23/17 09/24/17 12:05 16:54 12:01 WBC RBC Hgb Hct MCV MCH MCHC RDW Plt Count MPV Total Counted Neutrophils % Neutrophils % (Manual) Band Neutrophils % Lymphocytes % Lymphocytes % (Manual) Monocytes % (Manual) Eosinophils % (Manual) Basophils % (Manual) Myelocytes % (Man) Promyelocytes % (Man) Blast Cells % (Manual) Nucleated RBC % Metamyelocytes Platelet Estimate Sodium Potassium Chloride Carbon Dioxide Anion Gap BUN Creatinine Creat Clearance w eGFR POC Glucometer [phone] [phone] Random Glucose Lactic Acid Calcium Phosphorus Magnesium Total Bilirubin AST ALT Alkaline Phosphatase Total Protein Albumin 09/24/17 09/25/17 09/25/17 16:42 05:13 05:13 WBC 18.1 H RBC 3.42 L Hgb 11.5 D Hct 33.2 MCV 97.2 H MCH 33.6 MCHC 34.5 RDW 13.4 Plt Count 128 L MPV 12.6 H Total Counted 99 Neutrophils % No Result Required. Neutrophils % (Manual) 83.8 H Band Neutrophils % 0.0 Lymphocytes % No Result Required. Lymphocytes % (Manual) 9.1 D Monocytes % (Manual) 4 Eosinophils % (Manual) 0.0 Basophils % (Manual) 0.0 Myelocytes % (Man) 1 D Promyelocytes % (Man) 0 Blast Cells % (Manual) 0 Nucleated RBC % 1 H Metamyelocytes 0 Platelet Estimate Decreased Sodium 143 Potassium 4.3 Chloride 109 H Carbon Dioxide 26 Anion Gap 8 BUN 28 H Creatinine 1.3 H Creat Clearance w eGFR 41.50 POC Glucometer [phone] Random Glucose 150 H Lactic Acid Calcium 7.6 L Phosphorus 2.0 L Magnesium 1.6 L Total Bilirubin 0.4 D AST 11 L ALT 17 Alkaline Phosphatase 60 Total Protein 6.2 L Albumin 2.7 L 09/25/17 09/25/17 05:13 06:07 WBC RBC Hgb Hct MCV MCH MCHC RDW Plt Count MPV Total Counted Neutrophils % Neutrophils % (Manual) Band Neutrophils % Lymphocytes % Lymphocytes % (Manual) Monocytes % (Manual) Eosinophils % (Manual) Basophils % (Manual) Myelocytes % (Man) Promyelocytes % (Man) Blast Cells % (Manual) Nucleated RBC % Metamyelocytes Platelet Estimate Sodium Potassium Chloride Carbon Dioxide Anion Gap BUN Creatinine Creat Clearance w eGFR POC Glucometer [phone] Random Glucose Lactic Acid 2.4 H* Calcium Phosphorus Magnesium Total Bilirubin AST ALT Alkaline Phosphatase Total Protein Albumin Active Medications Generic Name Dose Route Start Last Admin Trade Name Freq PRN Reason Stop Dose Admin Acetaminophen 650 mg 09/22/17 18:14 Tylenol - PO Q6H PRN FEVER Amlodipine Besylate 5 mg 09/24/17 12:30 09/25/17 09:10 Norvasc - PO 5 mg DAILY PÉREZ Administration Atorvastatin Calcium 40 mg 09/22/17 22:00 09/24/17 22:14 Lipitor - PO 40 mg HS PÉREZ Administration Chlorhexidine Gluconate 1 applic 09/22/17 22:00 09/24/17 22:14 Hibiclens For Decolonization - TP 1 applic HS PÉREZ Administration Diphenhydramine HCl 25 mg 09/22/17 18:14 09/24/17 10:51 Benadryl Injection - IVPUSH 25 mg Q6H PRN Administration FOR ITCHING Fluocinonide 1 applic 09/22/17 15:15 09/24/17 22:14 Lidex 0.05% Ointment - TP 1 applic BID PÉREZ Administration Gabapentin 300 mg 09/22/17 22:00 09/25/17 05:39 Neurontin - PO 300 mg TID PÉREZ Administration Heparin Sodium (Porcine) 5,000 unit 09/22/17 22:00 09/25/17 05:38 Heparin - SQ 5,000 unit TID PÉREZ Administration Sodium Chloride 1,000 mls @ 75 mls/hr 09/24/17 15:46 09/25/17 11:59 Normal Saline - IV 75 mls/hr ASDIR PÉREZ Administration Insulin Aspart 1 vial 09/22/17 22:00 09/25/17 11:57 Novolog Vial Sliding Scale - SQ Not Given ACHS [facility] Protocol Loratadine 10 mg 09/23/17 10:00 09/25/17 09:09 Claritin - PO 10 mg DAILY PÉREZ Administration Metoprolol Succinate 100 mg 09/25/17 22:00 Toprol Xl - PO BID PÉREZ Mupirocin 1 applic 09/23/17 14:20 09/25/17 11:00 Bactroban Ointment (For Decolonization) - NS 09/27/17 21:59 1 applic BID PÉREZ Administration Nystatin 500,000 units 09/23/17 00:00 09/25/17 05:38 Nystatin Oral Suspension - PO 500,000 units Q6HPO PÉREZ Administration Phenobarbital 90 mg 09/22/17 22:00 09/25/17 09:11 Phenobarbital - PO 90 mg BID PÉREZ Administration Prednisone 20 mg 09/25/17 10:00 09/25/17 09:15 Deltasone - PO 20 mg DAILY PÉREZ Administration Zinc Acetate/Diphenhydramine 1 applic 09/23/17 10:00 09/24/17 13:29 Benadryl 2% Cream TP 1 applic DAILY PÉREZ Administration ASSESSMENT/PLAN: This is a 62 year old female with PMHx of DM II, HTN, morbid obesity, cholecystectomy, gastric sleeve 2017, epilepsy (last seizure 4 years ago) presented with nausea, vomiting, was admitted for UTI and developed a penicillin drug allergy from ceftriaxone. #Integumentary -Drug rash improving -Benadryl IV 25mg PRN -Prednisone 20mg Daily -Claratin 10mg -Bactroban -Derm reccs # -Sepsis secondary to UTI -Ucx e. coli -Increased WBC today, now 18.1 -LA trending down -Gentamycin (last dose today per ID) -Follow ID reccs #Renal -BELEM on CKD -improving -Avoid nephrotoxins -Follow renal reccs #Endorcrine -DM -Insulin sliding scale #CV -Started home Dose of Metoprolol 100mg BID for HTN -Norvasc 5mg #Neuro -A/o x 3 #Lungs -in no respiratory distress #FEN -NS @ 42ml/hour -Mag, phos repleted -Renal diet Transfer to [facility]-surge Visit type - Emergency Visit Emergency Visit: Yes ED Registration Date: 09/21/17 Care time: The patient presented to the Emergency Department on the above date and was hospitalized for further evaluation of their emergent condition. - New Patient This patient is new to me today: Yes Date on this admission: 09/25/17 - Critical Care Critical Care patient: Yes Total Critical Care Time (in minutes): 35 Critical Care Statement: The care of this patient involved high complexity decision making to prevent further life threatening deterioration of the patient 's condition and/or to evaluate & treat vital organ system(s) failure or risk of failure.
--- NOTE | 2017-09-25 13:18 | PN ---
Progress Note, Physician History of Present Illness: Pt seen and examined at bedside in ICU. Reported having allergic drug reaction over the weekend but rash is improving and no other complaints. Per nurse and resident, she's being transferred to floor. - Current Medication List Current Medications: Active Medications Acetaminophen (Tylenol -) 650 mg PO Q6H PRN PRN Reason: FEVER Amlodipine Besylate (Norvasc -) 5 mg PO DAILY [facility] Last Admin: 09/25/17 09:10 Dose: 5 mg Atorvastatin Calcium (Lipitor -) 40 mg PO HS [facility] Last Admin: 09/24/17 22:14 Dose: 40 mg Chlorhexidine Gluconate (Hibiclens For Decolonization -) 1 applic TP HS [facility] Last Admin: 09/24/17 22:14 Dose: 1 applic Diphenhydramine HCl (Benadryl Injection -) 25 mg IVPUSH Q6H PRN PRN Reason: FOR ITCHING Last Admin: 09/24/17 10:51 Dose: 25 mg Fluocinonide (Lidex 0.05% Ointment -) 1 applic TP BID [facility] Last Admin: 09/24/17 22:14 Dose: 1 applic Gabapentin (Neurontin -) 300 mg PO TID [facility] Last Admin: 09/25/17 05:39 Dose: 300 mg Heparin Sodium (Porcine) (Heparin -) 5,000 unit SQ TID [facility] Last Admin: 09/25/17 05:38 Dose: 5,000 unit Sodium Chloride (Normal Saline -) 1,000 mls @ 42 mls/hr IV ASDIR [facility] Insulin Aspart (Novolog Vial Sliding Scale -) 1 vial SQ ACHS [facility] PRN Reason: Protocol Last Admin: 09/25/17 11:57 Dose: Not Given Loratadine (Claritin -) 10 mg PO DAILY [facility] Last Admin: 09/25/17 09:09 Dose: 10 mg Metoprolol Succinate (Toprol Xl -) 100 mg PO BID PÉREZ Mupirocin (Bactroban Ointment (For Decolonization) -) 1 applic NS BID [facility] Stop: 09/27/17 21:59 Last Admin: 09/25/17 11:00 Dose: 1 applic Nystatin (Nystatin Oral Suspension -) 500,000 units PO Q6HPO [facility] Last Admin: 09/25/17 05:38 Dose: 500,000 units Phenobarbital (Phenobarbital -) 90 mg PO BID [facility] Last Admin: 09/25/17 09:11 Dose: 90 mg Prednisone (Deltasone -) 20 mg PO DAILY [facility] Last Admin: 09/25/17 09:15 Dose: 20 mg Zinc Acetate/Diphenhydramine (Benadryl 2% Cream) 1 applic TP DAILY [facility] Last Admin: 09/24/17 13:29 Dose: 1 applic - Objective Vital Signs: Vital Signs Temperature 98.6 F 09/25/17 12:00 Pulse Rate 68 09/25/17 12:00 Respiratory Rate 16 09/25/17 12:00 Blood Pressure 186/88 09/25/17 12:00 O2 Sat by Pulse Oximetry (%) 98 09/25/17 07:48 Constitutional: Yes: No Distress, Calm Cardiovascular: Yes: Tachycardia, S1, S2 Respiratory: Yes: CTA Bilaterally Gastrointestinal: Yes: Normal Bowel Sounds, Soft. No: Tenderness Edema: No Labs: CBC, BMP 09/25/17 05:13 09/25/17 05:13 Impression/Plan Impression/Plan: 62 yo F admitted for n/v and UTI, now have BELEM. Sepsis 2/2 UTI BELEM likely pre-renal from sepsis or hypotension from drug allergy Seizure disorder Drug rash Prolonged QTc - Renal function improving - Last dose of genta today - Taper steroid for drug rash - Avoid nephrotoxins to allow max afferent renal aterioles dilation - Trend Stephan Clinton PGY2 Pager: [phone] Visit type - Emergency Visit Emergency Visit: No - New Patient This patient is new to me today: No - Critical Care Critical Care patient: Yes Total Critical Care Time (in minutes): 35 Critical Care Statement: The care of this patient involved high complexity decision making to prevent further life threatening deterioration of the patient 's condition and/or to evaluate & treat vital organ system(s) failure or risk of failure.
--- NOTE | 2017-09-25 16:02 | PN ---
Teaching Attending Note Name of Resident: Odilon Clinton (Nephrology) ATTENDING PHYSICIAN STATEMENT I saw and evaluated the patient. I reviewed the resident's note and discussed the case with the resident. I agree with the resident's findings and plan as documented. Renal Pt seen and examined at bedside. She is awake and alert. Current Medications Generic Name Dose Route Start Last Admin Trade Name Freq PRN Reason Stop Dose Admin Acetaminophen 650 mg 09/22/17 18:14 Tylenol - PO Q6H PRN FEVER Amlodipine Besylate 5 mg 09/24/17 12:30 09/25/17 09:10 Norvasc - PO 5 mg DAILY PÉREZ Administration Atorvastatin Calcium 40 mg 09/22/17 22:00 09/24/17 22:14 Lipitor - PO 40 mg HS PÉREZ Administration Chlorhexidine Gluconate 1 applic 09/22/17 22:00 09/24/17 22:14 Hibiclens For Decolonization - TP 1 applic HS PÉREZ Administration Diphenhydramine HCl 25 mg 09/22/17 18:14 09/24/17 10:51 Benadryl Injection - IVPUSH 25 mg Q6H PRN Administration FOR ITCHING Fluocinonide 1 applic 09/25/17 14:49 Lidex 0.05% Ointment - TP BID PÉREZ Gabapentin 300 mg 09/22/17 22:00 09/25/17 14:37 Neurontin - PO 300 mg TID PÉREZ Administration Heparin Sodium (Porcine) 5,000 unit 09/22/17 22:00 09/25/17 14:38 Heparin - SQ 5,000 unit TID PÉREZ Administration Sodium Chloride 1,000 mls @ 42 mls/hr 09/25/17 12:54 Normal Saline - IV ASDIR PÉREZ Insulin Aspart 1 vial 09/22/17 22:00 09/25/17 11:57 Novolog Vial Sliding Scale - SQ Not Given ACHS [facility] Protocol Loratadine 10 mg 09/23/17 10:00 09/25/17 09:09 Claritin - PO 10 mg DAILY PÉREZ Administration Metoprolol Succinate 100 mg 09/25/17 22:00 Toprol Xl - PO BID PÉREZ Mupirocin 1 applic 09/25/17 22:00 Bactroban 2% Ointment - TP BID PÉREZ Nystatin 500,000 units 09/23/17 00:00 09/25/17 14:37 Nystatin Oral Suspension - PO 500,000 units Q6HPO PÉREZ Administration Phenobarbital 90 mg 09/22/17 22:00 09/25/17 09:11 Phenobarbital - PO 90 mg BID PÉREZ Administration Prednisone 20 mg 09/25/17 10:00 09/25/17 09:15 Deltasone - PO 20 mg DAILY PÉREZ Administration Last Vital Signs Temp Pulse Resp BP Pulse Ox 98.6 F 68 16 186/88 98 09/25/17 12:00 09/25/17 12:00 09/25/17 12:00 09/25/17 12:00 09/25/17 07:48 Laboratory Tests 09/25/17 05:13 Creatinine 1.3 H cardio s1s2 pulm clear GI soft, obese ext trace edema neuro awake, pre-existing deficit skin rash improved circ pos pulses Impression 1. BELEM 2. CKD 3. sepsis 4. hypotension 5. rash 6. possible drug reaction 7. obesity 8. DM 9. hx htn 10. lactic acidosis Plan - renal function is improving - can decrease rate of fluids - repeat labs in am - monitor bp and restart bp meds - renal workup in progress Problem List - Problems (1) Acute kidney injury Code(s): N17.9 - ACUTE KIDNEY FAILURE, UNSPECIFIED (2) Lactic acidosis Code(s): E87.2 - ACIDOSIS (3) Sepsis Code(s): A41.9 - SEPSIS, UNSPECIFIED ORGANISM (4) UTI (urinary tract infection) Code(s): N39.0 - URINARY TRACT INFECTION, SITE NOT SPECIFIED (5) Bariatric surgery status Code(s): Z98.84 - BARIATRIC SURGERY STATUS (6) Diabetes Code(s): E11.9 - TYPE 2 DIABETES MELLITUS WITHOUT COMPLICATIONS Qualifiers: Diabetes mellitus type: type 2 Chronic kidney disease stage: stage 1 (7) Hyperlipidemia Code(s): E78.5 - HYPERLIPIDEMIA, UNSPECIFIED Qualifiers: Hyperlipidemia type: mixed hyperlipidemia Qualified Code(s): E78.2 - Mixed hyperlipidemia (8) Hypertension Code(s): I10 - ESSENTIAL (PRIMARY) HYPERTENSION Qualifiers: Hypertension type: essential hypertension Qualified Code(s): I10 - Essential (primary) hypertension (9) Morbid (severe) obesity due to excess calories Code(s): E66.01 - MORBID (SEVERE) OBESITY DUE TO EXCESS CALORIES
[2017-09-25] MEDS ORDERED: amLODIPine BESYLATE 5 MG TABLET (FP) PO ONE (18:33)
--- NOTE | 2017-09-25 19:12 | PN ---
Progress Note (short form) - Note Progress Note: Subjective: The patient was seen and examined at the bedside, she has no complaints at this time. Current Medications Generic Name Dose Route Start Last Admin Trade Name Freq PRN Reason Stop Dose Admin Acetaminophen 650 mg 09/22/17 18:14 Tylenol - PO Q6H PRN FEVER Amlodipine Besylate 10 mg 09/26/17 10:00 Norvasc - PO DAILY PÉREZ Atorvastatin Calcium 40 mg 09/22/17 22:00 09/24/17 22:14 Lipitor - PO 40 mg HS PÉREZ Administration Chlorhexidine Gluconate 1 applic 09/22/17 22:00 09/24/17 22:14 Hibiclens For Decolonization - TP 1 applic HS PÉREZ Administration Diphenhydramine HCl 25 mg 09/22/17 18:14 09/24/17 10:51 Benadryl Injection - IVPUSH 25 mg Q6H PRN Administration FOR ITCHING Fluocinonide 1 applic 09/25/17 14:49 Lidex 0.05% Ointment - TP BID PÉREZ Gabapentin 300 mg 09/22/17 22:00 09/25/17 14:37 Neurontin - PO 300 mg TID PÉREZ Administration Heparin Sodium (Porcine) 5,000 unit 09/22/17 22:00 09/25/17 14:38 Heparin - SQ 5,000 unit TID PÉREZ Administration Hydralazine HCl 10 mg 09/25/17 18:34 Apresoline Injection - IVPUSH Q8H PRN HYPERTENSION Sodium Chloride 1,000 mls @ 42 mls/hr 09/25/17 12:54 09/25/17 13:30 Normal Saline - IV 42 mls/hr ASDIR PÉREZ Administration Insulin Aspart 1 vial 09/22/17 22:00 09/25/17 17:08 Novolog Vial Sliding Scale - SQ Not Given ACHS [facility] Protocol Loratadine 10 mg 09/23/17 10:00 09/25/17 09:09 Claritin - PO 10 mg DAILY PÉREZ Administration Metoprolol Succinate 100 mg 09/25/17 22:00 Toprol Xl - PO BID PÉREZ Mupirocin 1 applic 09/25/17 22:00 Bactroban 2% Ointment - TP BID PÉREZ Nystatin 500,000 units 09/23/17 00:00 09/25/17 18:14 Nystatin Oral Suspension - PO 500,000 units Q6HPO PÉREZ Administration Phenobarbital 90 mg 09/22/17 22:00 09/25/17 09:11 Phenobarbital - PO 90 mg BID PÉREZ Administration Prednisone 20 mg 09/25/17 10:00 09/25/17 09:15 Deltasone - PO 20 mg DAILY PÉREZ Administration Objective: Vital Signs Period Temp Pulse Resp BP Sys/Smith Pulse Ox Last 24 Hr 98.2 F-98.7 F 65-92 15-21 148-194/60-94 98-100 Physical Exam: General: NAD, A&Ox3 Lungs: CTA bilaterally Heart: RRR, S1S2 Abd: Soft, non-tender, Non-distended : Rodríguez catheter in place with clear, yellow urine Skin: Erythema on chest and around neck, b/l antecubital fossa, b/l axilla, b/l thighs. Pustules resolved CBCD WBC 18.1 K/mm3 (4.0-10.0) H 09/25/17 05:13 RBC 3.42 M/mm3 (3.60-5.2) L 09/25/17 05:13 Hgb 11.5 GM/dL (10.7-15.3) D 09/25/17 05:13 Hct 33.2 % (32.4-45.2) 09/25/17 05:13 MCV 97.2 fl (80-96) H 09/25/17 05:13 MCHC 34.5 g/dl (32.0-36.0) 09/25/17 05:13 RDW 13.4 % (11.6-15.6) 09/25/17 05:13 Plt Count 128 K/MM3 (134-434) L 09/25/17 05:13 MPV 12.6 fl (7.5-11.1) H 09/25/17 05:13 CMP Sodium 143 mmol/L (136-145) 09/25/17 05:13 Potassium 4.3 mmol/L (3.5-5.1) 09/25/17 05:13 Chloride 109 mmol/L (98-107) H 09/25/17 05:13 Carbon Dioxide 26 mmol/L (21-32) 09/25/17 05:13 Anion Gap 8 (8-16) 09/25/17 05:13 BUN 28 mg/dL (7-18) H 09/25/17 05:13 Creatinine 1.3 mg/dL (0.55-1.02) H 09/25/17 05:13 Creat Clearance w eGFR 41.50 (>60) 09/25/17 05:13 Random Glucose 150 mg/dL (74-106) H 09/25/17 05:13 Calcium 7.6 mg/dL (8.5-10.1) L 09/25/17 05:13 Total Bilirubin 0.4 mg/dL (0.2-1.0) D 09/25/17 05:13 AST 11 U/L (15-37) L 09/25/17 05:13 ALT 17 U/L (12-78) 09/25/17 05:13 Alkaline Phosphatase 60 U/L (45-117) 09/25/17 05:13 Total Protein 6.2 g/dl (6.4-8.2) L 09/25/17 05:13 Albumin 2.7 g/dl (3.4-5.0) L 09/25/17 05:13 CARDIAC ENZYMES Creatine Kinase 321 IU/L (26-192) H 09/17/17 22:35 Troponin I < 0.02 ng/ml (0.00-0.05) 09/18/17 18:05 Microbiology 09/21/17 02:35 Blood - Peripheral Venous Blood Culture - Preliminary NO GROWTH OBTAINED AFTER 96 HOURS, INCUBATION TO CONTINUE FOR 1 DAYS. 09/21/17 02:35 Blood - Peripheral Venous Blood Culture - Preliminary NO GROWTH OBTAINED AFTER 96 HOURS, INCUBATION TO CONTINUE FOR 1 DAYS. 09/21/17 13:00 Urine - Urine - Catheterized Urine Culture - Final NO GROWTH OBTAINED 09/17/17 22:45 Urine - Urine Clean Catch Urine Culture - Final Escherichia Coli Assessment: This is a 62 year old female with PMHx of DM II, HTN, morbid obesity , cholecystectomy, gastric sleeve 2017, epilepsy (last seizure 4 years ago) presented with nausea, vomiting. Plan: 1) Acute generalized exanthematous pustulosis - Likely 2/2 Ceftriaxone - Improving, pustules resolved, now with erythema and maceration - Taper steroids - Continue Lidex - Outpatient allergy testing - Appreciate dermatology consult 2) Severe sepsis 2/2 e.coli UTI - Last dose of Gentamycin today - Trend fever curve, Tylenol prn - Appreciate ID consult 3) BELEM on CKD - Hx of HD in 2005 - Likely prerenal 2/2 episode of hypotension on 09/21 - Rodríguez catheter maintained for accurate output - Cr stable 1.3 and improving - Kidney ultrasound: both kidneys appear unremarkable, no hydronephrosis noted - Appreciate nephrology consult 4) Nausea/vomiting - Resolved 5) Prolonged qtc - Avoid all agents that prolong qtc 6) HTN - Restart home medications - Increase Norvasc to 10mg po daily - Toprol XL 100mg po bid - Hydralazine prn for SBP >160 7) Epilepsy - Continue Phenobarbital 8) DM - BGM ACHS - ISS ACHS 9) F/E/N: - Renal diet - Monitor electrolytes - Hypomagnesemia: replete - Hypophosphatemia: replete 10) Prophylaxis: - Heparin 5,000u sq tid 11) Dispo: - Requires continued inpatient care CODE STATUS: FULL CODE Visit type - Emergency Visit Emergency Visit: Yes ED Registration Date: 09/21/17 Care time: The patient presented to the Emergency Department on the above date and was hospitalized for further evaluation of their emergent condition. - New Patient This patient is new to me today: No - Critical Care Critical Care patient: No
[2017-09-25] MEDS: hydrALAZINE HCL 20 MG/ML VIAL IVPUSH PRN (19:47)
[2017-09-25] MEDS ORDERED: PT OWN MED DRAWER 7, Y5N ONE (21:02)
[2017-09-25] MEDS: ATORVASTATIN CA 40 MG TABLET (FP) PO SCH ×2 (21:06→22:19)
[2017-09-25] MEDS ORDERED: ACETAMINOPHEN 325 MG TABLET (FP) PO PRN (21:37)
[2017-09-25] MEDS: FLUOCINONIDE 0.05% TOP OINT (15 GM TUBE) TP SCH (21:50)
[2017-09-25] MEDS: MUPIROCIN 2% TOPICAL OINTMENT 22 GM TUBE TP SCH (21:50)
[2017-09-25] MEDS ORDERED: CHLORHEXIDINE GLUCONATE 4% CLEANSER FOR DECOLONIZATION TP SCH (22:00)
[2017-09-25] MEDS ORDERED: hydrALAZINE HCL 10 MG TABLET PO SCH (22:00)
[2017-09-26] MEDS: NYSTATIN 500,000 UNITS/5 ML SUSPENSION PO SCH ×5 (00:38→23:51)
[2017-09-26] MEDS: HEPARIN NA (PORCINE) 5,000 UNITS/ML 1ML VIAL SQ SCH ×3 (06:22→22:08)
[2017-09-26] MEDS: GABAPENTIN 300 MG CAPSULE (FP) PO SCH ×3 (06:23→22:09)
[2017-09-26] MEDS: INSULIN SLIDING SCALE (NOVOLOG) 1 VIAL SQ SCH ×4 (06:27→22:09)
[2017-09-26 07:31] LABS: HEMATOCRIT 34.2 % (32.4-45.2); HEMOGLOBIN 11.4 GM/dL (10.7-15.3); MCH 32.7 pg (25.7-33.7); MCHC 33.5 g/dl (32.0-36.0); MEAN CELL VOLUME 97.6 fl (80-96); MEAN PLT VOLUME 10.6 fl (7.5-11.1); PLATELET COUNT 142 K/MM3 (134-434); RDW 13.5 % (11.6-15.6); WHITE BLOOD COUNT 18.7 K/mm3 (4.0-10.0)
[2017-09-26 07:53] LABS: CHLORIDE 107 mmol/L (98-107); POTASSIUM 3.3 mmol/L (3.5-5.1); SODIUM 144 mmol/L (136-145)
[2017-09-26 08:08] LABS: ALBUMIN 2.5 g/dl (3.4-5.0); ALK PHOS 65 U/L (45-117); ANION GAP 9 (8-16); BILIRUBIN,TOTAL 0.5 mg/dL (0.2-1.0); BLOOD UREA NITROGEN 27 mg/dL (7-18); CALCIUM 7.4 mg/dL (8.5-10.1); CO2 28 mmol/L (21-32); CREATININE 1.1 mg/dL (0.55-1.02); GLUCOSE,RANDOM 105 mg/dL (74-106); MAGNESIUM 1.9 mg/dL (1.8-2.4); PHOSPHOROUS 2.2 mg/dL (2.5-4.9); SGOT/AST 11 U/L (15-37); SGPT/ALT 16 U/L (12-78); TOT PROT 5.6 g/dl (6.4-8.2)
[2017-09-26] MEDS ORDERED: POTASSIUM CHLORIDE TABS 20 MEQ TABLET.ER (FP) PO ONE ×2 (08:29→14:15)
[2017-09-26 10:11] LABS: ANTIGLOMERULAR BASEMENT MEN.AB 3 units (0-20)
[2017-09-26] MEDS ORDERED: PT OWN MED DRAWER 7, Y5N ONE (10:18)
--- NOTE | 2017-09-26 10:47 | PN ---
Progress Note (short form) - Note Progress Note: Resting in NAD. Awake and alert. Overall feeling better. No CP or SOB. Intake & Output 09/23/17 09/24/17 09/25/17 09/26/17 23:59 23:59 23:59 23:59 Intake Total 1700 4585 2602 500 Output Total 800 8600 6800 500 Balance 992 -2579 -9867 0 Weight 268 lb 9 oz 264 lb 1.82 oz 252 lb 6.868 oz Last Vital Signs Temp Pulse Resp BP Pulse Ox 98 F 79 20 150/73 98 09/26/17 05:53 09/26/17 05:53 09/26/17 05:53 09/26/17 05:53 09/25/17 20:24 Active Medications Acetaminophen (Tylenol -) 650 mg PO Q6H PRN PRN Reason: FEVER Amlodipine Besylate (Norvasc -) 10 mg PO DAILY [facility] Atorvastatin Calcium (Lipitor -) 40 mg PO HS [facility] Last Admin: 09/25/17 22:19 Dose: Not Given Diphenhydramine HCl (Benadryl Injection -) 25 mg IVPUSH Q6H PRN PRN Reason: FOR ITCHING Fluocinonide (Lidex 0.05% Ointment -) 1 applic TP BID [facility] Last Admin: 09/25/17 21:50 Dose: Not Given Gabapentin (Neurontin -) 300 mg PO TID [facility] Last Admin: 09/26/17 06:23 Dose: 300 mg Heparin Sodium (Porcine) (Heparin -) 5,000 unit SQ TID [facility] Last Admin: 09/26/17 06:22 Dose: 5,000 unit Hydralazine HCl (Apresoline Injection -) 10 mg IVPUSH Q8H PRN PRN Reason: HYPERTENSION Last Admin: 09/25/17 19:47 Dose: 10 mg Sodium Chloride (Normal Saline -) 1,000 mls @ 42 mls/hr IV ASDIR [facility] Last Admin: 09/25/17 13:30 Dose: 42 mls/hr Insulin Aspart (Novolog Vial Sliding Scale -) 1 vial SQ ACHS [facility] PRN Reason: Protocol Last Admin: 09/26/17 06:27 Dose: Not Given Loratadine (Claritin -) 10 mg PO DAILY [facility] Metoprolol Succinate (Toprol Xl -) 100 mg PO BID [facility] Last Admin: 09/25/17 21:51 Dose: Not Given Mupirocin (Bactroban 2% Ointment -) 1 applic TP BID [facility] Last Admin: 09/25/17 21:50 Dose: Not Given Nystatin (Nystatin Oral Suspension -) 500,000 units PO Q6HPO [facility] Last Admin: 09/26/17 06:23 Dose: 500,000 units Phenobarbital (Phenobarbital -) 90 mg PO BID [facility] Last Admin: 09/25/17 21:51 Dose: Not Given Potassium Phos/Sodium Phos (Phos-Nak Packet -) 1 packet PO BID [facility] Stop: 09/27/17 09:59 Prednisone (Deltasone -) 20 mg PO DAILY [facility] Constitutional: Yes: NAD, improving rash Eyes: Yes: Conjunctiva Clear HENT: Yes: Atraumatic, Normocephalic Neck: Yes: Supple, Trachea Midline Cardiovascular: Yes: Regular Rate and Rhythm, S1, S2 Respiratory: Yes: Regular, CTA Bilaterally Gastrointestinal: Yes: Soft, Abdomen, Obese Renal/: Yes: Rodríguez Present Extremities: Yes: WNL Edema: Yes Edema: LLE: Trace, RLE: Trace Peripheral Pulses WNL: Yes Integumentary: Yes: Improving rash Neurological: Yes: WNL, Oriented, non-focal ...Motor Strength: WNL Psychiatric: Yes: Oriented Labs: Laboratory Results - last 24 hr 09/22/17 09/25/17 09/25/17 08:10 11:55 17:05 WBC RBC Hgb Hct MCV MCH MCHC RDW Plt Count MPV Neutrophils % Lymphocytes % Sodium Potassium Chloride Carbon Dioxide Anion Gap BUN Creatinine Creat Clearance w eGFR POC Glucometer [phone] Random Glucose Calcium Phosphorus Magnesium Total Bilirubin AST ALT Alkaline Phosphatase Total Protein Albumin Glomerular Base Memb Ab 3 09/25/17 09/26/17 09/26/17 21:00 06:00 06:00 WBC 18.7 H RBC 3.50 L Hgb 11.4 Hct 34.2 MCV 97.6 H MCH 32.7 MCHC 33.5 RDW 13.5 Plt Count 142 MPV 10.6 D Neutrophils % No Result Required. Lymphocytes % No Result Required. Sodium 144 Potassium 3.3 L Chloride 107 Carbon Dioxide 28 Anion Gap 9 BUN 27 H Creatinine 1.1 H Creat Clearance w eGFR 50.33 POC Glucometer 178.49361 Random Glucose 105 Calcium 7.4 L Phosphorus 2.2 L Magnesium 1.9 Total Bilirubin 0.5 D AST 11 L ALT 16 Alkaline Phosphatase 65 Total Protein 5.6 L Albumin 2.5 L Glomerular Base Memb Ab 09/26/17 06:25 WBC RBC Hgb Hct MCV MCH MCHC RDW Plt Count MPV Neutrophils % Lymphocytes % Sodium Potassium Chloride Carbon Dioxide Anion Gap BUN Creatinine Creat Clearance w eGFR POC Glucometer 106 Random Glucose Calcium Phosphorus Magnesium Total Bilirubin AST ALT Alkaline Phosphatase Total Protein Albumin Glomerular Base Memb Ab Problem List - Problems (1) Acute kidney injury Code(s): N17.9 - ACUTE KIDNEY FAILURE, UNSPECIFIED (2) Drug rash Code(s): L27.0 - GEN SKIN ERUPTION DUE TO DRUGS AND MEDS TAKEN INTERNALLY (3) Lactic acidosis Code(s): E87.2 - ACIDOSIS (4) Sepsis Code(s): A41.9 - SEPSIS, UNSPECIFIED ORGANISM (5) UTI (urinary tract infection) Code(s): N39.0 - URINARY TRACT INFECTION, SITE NOT SPECIFIED (6) Bariatric surgery status Code(s): Z98.84 - BARIATRIC SURGERY STATUS (7) Diabetes Code(s): E11.9 - TYPE 2 DIABETES MELLITUS WITHOUT COMPLICATIONS Qualifiers: Diabetes mellitus type: type 2 Chronic kidney disease stage: stage 1 Assessment/Plan Acute generalized exanthematous pustulosis possibly due to Ceftriaxone Sepsis due to E coli UTI BELEM on CKD Prolonged QTc HTN Prednisone Benadryl VTE prophylaxis ABX per ID O2 as needed Avoid all agents that prolong QT interval Glycemic control Dr Alonzo
[2017-09-26] MEDS: amLODIPine BESYLATE 10 MG TABLET (FP) PO SCH (11:18)
[2017-09-26] MEDS: PHENobarbital 30 MG TABLET PO SCH ×2 (11:18→22:11)
[2017-09-26] MEDS: LORATADINE 10 MG TABLET PO SCH (11:18)
[2017-09-26] MEDS: predniSONE 20 MG TABLET (UD) PO SCH (11:18)
[2017-09-26] MEDS: NAPH,MB-DB/K PH,MBDB POWDER PACKET PO SCH ×2 (11:19→22:08)
--- NOTE | 2017-09-26 11:58 | PN ---
Progress Note (short form) - Note Progress Note: Subjective: The patient was seen and examined at the bedside, she has no complaints at this time. Current Medications Generic Name Dose Route Start Last Admin Trade Name Freq PRN Reason Stop Dose Admin Acetaminophen 650 mg 09/25/17 21:37 Tylenol - PO Q6H PRN FEVER Amlodipine Besylate 10 mg 09/26/17 10:00 09/26/17 11:18 Norvasc - PO 10 mg DAILY [facility] Administration Atorvastatin Calcium 40 mg 09/25/17 22:00 09/25/17 22:19 Lipitor - PO Not Given HS [facility] Diphenhydramine HCl 25 mg 09/25/17 21:37 Benadryl Injection - IVPUSH Q6H PRN FOR ITCHING Fluocinonide 1 applic 09/25/17 14:49 09/25/17 21:50 Lidex 0.05% Ointment - TP Not Given BID [facility] Gabapentin 300 mg 09/25/17 22:00 09/26/17 06:23 Neurontin - PO 300 mg TID [facility] Administration Heparin Sodium (Porcine) 5,000 unit 09/25/17 22:00 09/26/17 06:22 Heparin - SQ 5,000 unit TID [facility] Administration Hydralazine HCl 10 mg 09/25/17 18:34 09/25/17 19:47 Apresoline Injection - IVPUSH 10 mg Q8H PRN Administration HYPERTENSION Insulin Aspart 1 vial 09/25/17 22:00 09/26/17 06:27 Novolog Vial Sliding Scale - SQ Not Given ACHS [facility] Protocol Loratadine 10 mg 09/26/17 10:00 09/26/17 11:18 Claritin - PO 10 mg DAILY [facility] Administration Metoprolol Succinate 100 mg 09/25/17 22:00 09/26/17 11:19 Toprol Xl - PO 100 mg BID [facility] Administration Mupirocin 1 applic 09/25/17 22:00 09/25/17 21:50 Bactroban 2% Ointment - TP Not Given BID [facility] Nystatin 500,000 units 09/26/17 00:00 09/26/17 06:23 Nystatin Oral Suspension - PO 500,000 units Q6HPO [facility] Administration Phenobarbital 90 mg 09/25/17 22:00 09/26/17 11:18 Phenobarbital - PO 90 mg BID [facility] Administration Potassium Phos/Sodium Phos 1 packet 09/26/17 10:00 09/26/17 11:19 Phos-Nak Packet - PO 09/27/17 09:59 1 packet BID [facility] Administration Prednisone 20 mg 09/26/17 10:00 09/26/17 11:18 Deltasone - PO 20 mg DAILY [facility] Administration Objective: Vital Signs Period Temp Pulse Resp BP Sys/Smith Pulse Ox Last 24 Hr 98 F-98.7 F 68-94 15-20 148-186/60-89 98 Physical Exam: General: NAD, A&Ox3 Lungs: CTA bilaterally Heart: RRR, S1S2 Abd: Soft, non-tender, Non-distended : Rodríguez catheter in place with clear, yellow urine Skin: Erythema on chest and around neck, b/l antecubital fossa, b/l axilla, b/l thighs. Pustules resolved CBCD WBC 18.7 K/mm3 (4.0-10.0) H 09/26/17 06:00 RBC 3.50 M/mm3 (3.60-5.2) L 09/26/17 06:00 Hgb 11.4 GM/dL (10.7-15.3) 09/26/17 06:00 Hct 34.2 % (32.4-45.2) 09/26/17 06:00 MCV 97.6 fl (80-96) H 09/26/17 06:00 MCHC 33.5 g/dl (32.0-36.0) 09/26/17 06:00 RDW 13.5 % (11.6-15.6) 09/26/17 06:00 Plt Count 142 K/MM3 (134-434) 09/26/17 06:00 MPV 10.6 fl (7.5-11.1) D 09/26/17 06:00 CMP Sodium 144 mmol/L (136-145) 09/26/17 06:00 Potassium 3.3 mmol/L (3.5-5.1) L 09/26/17 06:00 Chloride 107 mmol/L (98-107) 09/26/17 06:00 Carbon Dioxide 28 mmol/L (21-32) 09/26/17 06:00 Anion Gap 9 (8-16) 09/26/17 06:00 BUN 27 mg/dL (7-18) H 09/26/17 06:00 Creatinine 1.1 mg/dL (0.55-1.02) H 09/26/17 06:00 Creat Clearance w eGFR 50.33 (>60) 09/26/17 06:00 Random Glucose 105 mg/dL (74-106) 09/26/17 06:00 Calcium 7.4 mg/dL (8.5-10.1) L 09/26/17 06:00 Total Bilirubin 0.5 mg/dL (0.2-1.0) D 09/26/17 06:00 AST 11 U/L (15-37) L 09/26/17 06:00 ALT 16 U/L (12-78) 09/26/17 06:00 Alkaline Phosphatase 65 U/L (45-117) 09/26/17 06:00 Total Protein 5.6 g/dl (6.4-8.2) L 09/26/17 06:00 Albumin 2.5 g/dl (3.4-5.0) L 09/26/17 06:00 CARDIAC ENZYMES Creatine Kinase 321 IU/L (26-192) H 09/17/17 22:35 Troponin I < 0.02 ng/ml (0.00-0.05) 09/18/17 18:05 Microbiology 09/21/17 02:35 Blood - Peripheral Venous Blood Culture - Final NO GROWTH AFTER 5 DAYS INCUBATION 09/21/17 02:35 Blood - Peripheral Venous Blood Culture - Final NO GROWTH AFTER 5 DAYS INCUBATION 09/21/17 13:00 Urine - Urine - Catheterized Urine Culture - Final NO GROWTH OBTAINED 09/17/17 22:45 Urine - Urine Clean Catch Urine Culture - Final Escherichia Coli Assessment: This is a 62 year old female with PMHx of DM II, HTN, morbid obesity , cholecystectomy, gastric sleeve 2017, epilepsy (last seizure 4 years ago) presented with nausea, vomiting. Plan: 1) Acute generalized exanthematous pustulosis - Likely 2/2 Ceftriaxone - Improving - Taper steroids; now on prednisone 20mg po daily - Continue Lidex - Outpatient allergy testing - Appreciate dermatology consult 2) Severe sepsis 2/2 e.coli UTI - Last dose of Gentamycin yesterday - Appreciate ID consult 3) BELEM on CKD - Hx of HD in 2005 - Likely prerenal 2/2 episode of hypotension on 09/21 - Rodríguez catheter maintained for accurate output - Cr continues to improve, 1.1 today - Kidney ultrasound: both kidneys appear unremarkable, no hydronephrosis noted - Appreciate nephrology consult 4) Nausea/vomiting - Resolved 5) Prolonged qtc - Avoid all agents that prolong qtc 6) HTN - Restart home medications - D/c IV fluids as the patient was hypertensive - Increase Norvasc to 10mg po daily - Toprol XL 100mg po bid - Hydralazine prn for SBP >160 7) Epilepsy - Continue Phenobarbital 8) DM - BGM ACHS - ISS ACHS 9) F/E/N: - Renal diet - Monitor electrolytes - Hypomagnesemia: resolved - Hypophosphatemia: replete 10) Prophylaxis: - Heparin 5,000u sq tid 11) Dispo: - Requires continued inpatient care CODE STATUS: FULL CODE Visit type - Emergency Visit Emergency Visit: Yes ED Registration Date: 09/21/17 Care time: The patient presented to the Emergency Department on the above date and was hospitalized for further evaluation of their emergent condition. - New Patient This patient is new to me today: No - Critical Care Critical Care patient: No
[2017-09-26 12:06] LABS: PLATELET ESTIMATE ADEQUATE
[2017-09-26] MEDS: MUPIROCIN 2% TOPICAL OINTMENT 22 GM TUBE TP SCH ×2 (12:12→22:10)
[2017-09-26] MEDS: FLUOCINONIDE 0.05% TOP OINT (15 GM TUBE) TP SCH ×2 (12:13→22:10)
--- NOTE | 2017-09-26 14:06 | PN ---
Progress Note, Physician History of Present Illness: Pt seen and examined at bedside. She is awake and alert. She denies shortness of breath. - Current Medication List Current Medications: Active Medications Acetaminophen (Tylenol -) 650 mg PO Q6H PRN PRN Reason: FEVER Amlodipine Besylate (Norvasc -) 10 mg PO DAILY [facility] Last Admin: 09/26/17 11:18 Dose: 10 mg Atorvastatin Calcium (Lipitor -) 40 mg PO HS [facility] Last Admin: 09/25/17 22:19 Dose: Not Given Diphenhydramine HCl (Benadryl Injection -) 25 mg IVPUSH Q6H PRN PRN Reason: FOR ITCHING Fluocinonide (Lidex 0.05% Ointment -) 1 applic TP BID [facility] Last Admin: 09/26/17 12:13 Dose: 1 appful Gabapentin (Neurontin -) 300 mg PO TID [facility] Last Admin: 09/26/17 06:23 Dose: 300 mg Heparin Sodium (Porcine) (Heparin -) 5,000 unit SQ TID [facility] Last Admin: 09/26/17 06:22 Dose: 5,000 unit Hydralazine HCl (Apresoline Injection -) 10 mg IVPUSH Q8H PRN PRN Reason: HYPERTENSION Last Admin: 09/25/17 19:47 Dose: 10 mg Insulin Aspart (Novolog Vial Sliding Scale -) 1 vial SQ ACHS [facility] PRN Reason: Protocol Last Admin: 09/26/17 12:39 Dose: Not Given Loratadine (Claritin -) 10 mg PO DAILY [facility] Last Admin: 09/26/17 11:18 Dose: 10 mg Metoprolol Succinate (Toprol Xl -) 100 mg PO BID [facility] Last Admin: 09/26/17 11:19 Dose: 100 mg Mupirocin (Bactroban 2% Ointment -) 1 applic TP BID [facility] Last Admin: 09/26/17 12:12 Dose: 1 appful Nystatin (Nystatin Oral Suspension -) 500,000 units PO Q6HPO [facility] Last Admin: 09/26/17 13:34 Dose: Not Given Phenobarbital (Phenobarbital -) 90 mg PO BID [facility] Last Admin: 09/26/17 11:18 Dose: 90 mg Potassium Phos/Sodium Phos (Phos-Nak Packet -) 1 packet PO BID [facility] Stop: 09/27/17 09:59 Last Admin: 09/26/17 11:19 Dose: 1 packet Prednisone (Deltasone -) 20 mg PO DAILY [facility] Last Admin: 09/26/17 11:18 Dose: 20 mg - Objective Vital Signs: Vital Signs Temperature 98 F 09/26/17 13:42 Pulse Rate 81 09/26/17 13:42 Respiratory Rate 20 09/26/17 13:42 Blood Pressure 165/82 09/26/17 13:42 O2 Sat by Pulse Oximetry (%) 98 09/25/17 20:24 Constitutional: Yes: Calm Eyes: Yes: Conjunctiva Clear HENT: Yes: Atraumatic Neck: Yes: Supple Cardiovascular: Yes: S1, S2 Respiratory: Yes: CTA Bilaterally Gastrointestinal: Yes: Soft, Abdomen, Obese Genitourinary: Yes: Rodríguez Present Musculoskeletal: Yes: WNL Edema: No Neurological: Yes: Oriented Psychiatric: Yes: Oriented Labs: CBC, BMP 09/26/17 06:00 09/26/17 06:00 Problem List - Problems (1) Acute kidney injury Code(s): N17.9 - ACUTE KIDNEY FAILURE, UNSPECIFIED (2) Lactic acidosis Code(s): E87.2 - ACIDOSIS (3) Sepsis Code(s): A41.9 - SEPSIS, UNSPECIFIED ORGANISM (4) UTI (urinary tract infection) Code(s): N39.0 - URINARY TRACT INFECTION, SITE NOT SPECIFIED (5) Bariatric surgery status Code(s): Z98.84 - BARIATRIC SURGERY STATUS (6) Diabetes Code(s): E11.9 - TYPE 2 DIABETES MELLITUS WITHOUT COMPLICATIONS Qualifiers: Diabetes mellitus type: type 2 Chronic kidney disease stage: stage 1 (7) Hyperlipidemia Code(s): E78.5 - HYPERLIPIDEMIA, UNSPECIFIED Qualifiers: Hyperlipidemia type: mixed hyperlipidemia Qualified Code(s): E78.2 - Mixed hyperlipidemia (8) Hypertension Code(s): I10 - ESSENTIAL (PRIMARY) HYPERTENSION Qualifiers: Hypertension type: essential hypertension Qualified Code(s): I10 - Essential (primary) hypertension (9) Morbid (severe) obesity due to excess calories Code(s): E66.01 - MORBID (SEVERE) OBESITY DUE TO EXCESS CALORIES Assessment/Plan Current Medications Generic Name Dose Route Start Last Admin Trade Name Freq PRN Reason Stop Dose Admin Acetaminophen 650 mg 09/25/17 21:37 Tylenol - PO Q6H PRN FEVER Amlodipine Besylate 10 mg 09/26/17 10:00 09/26/17 11:18 Norvasc - PO 10 mg DAILY [facility] Administration Atorvastatin Calcium 40 mg 09/25/17 22:00 09/25/17 22:19 Lipitor - PO Not Given HS [facility] Diphenhydramine HCl 25 mg 09/25/17 21:37 Benadryl Injection - IVPUSH Q6H PRN FOR ITCHING Fluocinonide 1 applic 09/25/17 14:49 09/26/17 12:13 Lidex 0.05% Ointment - TP 1 appful BID [facility] Administration Gabapentin 300 mg 09/25/17 22:00 09/26/17 06:23 Neurontin - PO 300 mg TID [facility] Administration Heparin Sodium (Porcine) 5,000 unit 09/25/17 22:00 09/26/17 06:22 Heparin - SQ 5,000 unit TID [facility] Administration Hydralazine HCl 10 mg 09/25/17 18:34 09/25/17 19:47 Apresoline Injection - IVPUSH 10 mg Q8H PRN Administration HYPERTENSION Insulin Aspart 1 vial 09/25/17 22:00 09/26/17 12:39 Novolog Vial Sliding Scale - SQ Not Given ACHS [facility] Protocol Loratadine 10 mg 09/26/17 10:00 09/26/17 11:18 Claritin - PO 10 mg DAILY [facility] Administration Metoprolol Succinate 100 mg 09/25/17 22:00 09/26/17 11:19 Toprol Xl - PO 100 mg BID [facility] Administration Mupirocin 1 applic 09/25/17 22:00 09/26/17 12:12 Bactroban 2% Ointment - TP 1 appful BID [facility] Administration Nystatin 500,000 units 09/26/17 00:00 09/26/17 13:34 Nystatin Oral Suspension - PO Not Given Q6HPO [facility] Phenobarbital 90 mg 09/25/17 22:00 09/26/17 11:18 Phenobarbital - PO 90 mg BID [facility] Administration Potassium Chloride 20 meq 09/26/17 14:15 K-Dur - PO 09/26/17 14:16 ONCE ONE Potassium Phos/Sodium Phos 1 packet 09/26/17 10:00 09/26/17 11:19 Phos-Nak Packet - PO 09/27/17 09:59 1 packet BID [facility] Administration Prednisone 20 mg 09/26/17 10:00 09/26/17 11:18 Deltasone - PO 20 mg DAILY [facility] Administration Laboratory Tests 09/22/17 08:10 Proteinase 3 (PR3) Pending p-ANCA Pending Atypical p-ANCA Pending Myeloperoxidase Ab Pending Double Strand DNA Ab <1 Glomerular Base Memb Ab 3 Impression 1. BELEM 2. CKD 3. sepsis 4. hypotension 5. rash 6. possible drug reaction 7. obesity 8. DM 9. hx htn 10. lactic acidosis 11. prolonged qt Plan - renal function is stabilizing - repeat labs in am - replace potassium - renal workup is in progress - pt clinically is improving
[2017-09-26] MEDS: ATORVASTATIN CA 40 MG TABLET (FP) PO SCH (22:09)
[2017-09-27 00:06] LABS: ATYPICAL pANCA <1:20 titer (Neg:<1:20); C-ANCA <1:20 titer (Neg:<1:20); P-ANCA <1:20 titer (Neg:<1:20); PROTEINASE-3 ANTIBODY <3.5 U/mL (0.0-3.5)
[2017-09-27] MEDS: NYSTATIN 500,000 UNITS/5 ML SUSPENSION PO SCH ×4 (06:16→23:32)
[2017-09-27] MEDS: HEPARIN NA (PORCINE) 5,000 UNITS/ML 1ML VIAL SQ SCH ×3 (06:16→21:50)
[2017-09-27] MEDS: GABAPENTIN 300 MG CAPSULE (FP) PO SCH ×3 (06:16→21:50)
[2017-09-27] MEDS: INSULIN SLIDING SCALE (NOVOLOG) 1 VIAL SQ SCH ×4 (06:17→21:51)
[2017-09-27] MEDS: hydrALAZINE HCL 20 MG/ML VIAL IVPUSH PRN (06:17)
[2017-09-27 07:28] LABS: HEMATOCRIT 33.7 % (32.4-45.2); HEMOGLOBIN 11.2 GM/dL (10.7-15.3); MCH 32.3 pg (25.7-33.7); MCHC 33.3 g/dl (32.0-36.0); MEAN CELL VOLUME 97.1 fl (80-96); MEAN PLT VOLUME 10.7 fl (7.5-11.1); PLATELET COUNT 168 K/MM3 (134-434); RBC 3.47 M/mm3 (3.60-5.2); RDW 13.4 % (11.6-15.6); WHITE BLOOD COUNT 24.6 K/mm3 (4.0-10.0)
[2017-09-27 07:47] LABS: ALBUMIN 2.5 g/dl (3.4-5.0); ANION GAP 7 (8-16); BLOOD UREA NITROGEN 27 mg/dL (7-18); CALCIUM 7.5 mg/dL (8.5-10.1); CHLORIDE 107 mmol/L (98-107); CO2 30 mmol/L (21-32); GLUCOSE,RANDOM 102 mg/dL (74-106); POTASSIUM 3.3 mmol/L (3.5-5.1); SGOT/AST 11 U/L (15-37); SODIUM 144 mmol/L (136-145)
[2017-09-27 07:49] LABS: ALK PHOS 72 U/L (45-117); BILIRUBIN,TOTAL 0.4 mg/dL (0.2-1.0); CREATININE 1.2 mg/dL (0.55-1.02); PHOSPHOROUS 3.3 mg/dL (2.5-4.9); SGPT/ALT 17 U/L (12-78); TOT PROT 5.7 g/dl (6.4-8.2)
[2017-09-27] MEDS ORDERED: POTASSIUM CHLORIDE TABS 20 MEQ TABLET.ER (FP) PO ONE ×2 (08:13→12:30)
[2017-09-27 09:39] LABS: PLATELET ESTIMATE NORMAL
[2017-09-27 09:59] LABS: MAGNESIUM 1.8 mg/dL (1.8-2.4)
--- NOTE | 2017-09-27 11:12 | PN ---
Physical Exam: SUBJECTIVE: Patient seen and examined at the bedside. Feels weak. Today walked with physical therapy. OBJECTIVE: WBC bumped up again, reculture d/c pryor Vital Signs Period Temp Pulse Resp BP Sys/Smith Pulse Ox Last 24 Hr 97.8 F-98.9 F 69-86 20-20 140-181/70-82 96 GENERAL: The patient is awake, alert, and fully oriented, in no acute distress. HEAD: Normal with no signs of trauma. EYES: PERRL, extraocular movements intact, sclera anicteric, conjunctiva clear. No ptosis. ENT: Ears normal, nares patent, oropharynx clear without exudates, moist mucous membranes. NECK: Trachea midline, full range of motion, supple. LUNGS: Breath sounds equal, clear to auscultation bilaterally, no wheezes, no crackles, no accessory muscle use. HEART: Regular rate and rhythm ABDOMEN: Soft, nontender, nondistended, hypoactive bowel sounds, no guarding, no rebound, +flatus, BM yesterday EXTREMITIES: no edema. NEUROLOGICAL: Normal speech, gait not observed. PSYCH: Normal mood, normal affect. SKIN: healed abdominal surgical scars, generalized rash that appears to be healing s/p allergic reaction likely to ceftriaxone Laboratory Results - last 24 hr 09/22/17 09/22/17 09/26/17 08:10 08:10 06:00 WBC RBC Hgb Hct MCV MCH MCHC RDW Plt Count MPV Total Counted 100 Neutrophils % Neutrophils % (Manual) 41.0 L Band Neutrophils % 8.0 Lymphocytes % Lymphocytes % (Manual) 36.0 Monocytes % (Manual) 9 Eosinophils % (Manual) 3.0 Basophils % (Manual) Myelocytes % (Man) 2 Promyelocytes % (Man) Blast Cells % (Manual) Nucleated RBC % 1 H Metamyelocytes 1 Platelet Estimate Adequate Sodium Potassium Chloride Carbon Dioxide Anion Gap BUN Creatinine Creat Clearance w eGFR POC Glucometer Random Glucose Calcium Phosphorus Magnesium Total Bilirubin AST ALT Alkaline Phosphatase Total Protein Total Protein (PEP) 5.5 L Albumin Albumin (PEP) 2.7 L Globulin 2.8 Albumin/Globulin Ratio 1.0 Beta Globulins 0.7 BEBA M-Isaac Not observed c-ANCA <1:20 Proteinase 3 (PR3) <3.5 p-ANCA <1:20 Atypical p-ANCA <1:20 Myeloperoxidase Ab <9.0 HCV Quantitation Hcv not detected Hepatitis C RNA TNP 09/26/17 09/26/17 09/26/17 12:38 17:11 22:07 WBC RBC Hgb Hct MCV MCH MCHC RDW Plt Count MPV Total Counted Neutrophils % Neutrophils % (Manual) Band Neutrophils % Lymphocytes % Lymphocytes % (Manual) Monocytes % (Manual) Eosinophils % (Manual) Basophils % (Manual) Myelocytes % (Man) Promyelocytes % (Man) Blast Cells % (Manual) Nucleated RBC % Metamyelocytes Platelet Estimate Sodium Potassium Chloride Carbon Dioxide Anion Gap BUN Creatinine Creat Clearance w eGFR POC Glucometer 131 183 159 Random Glucose Calcium Phosphorus Magnesium Total Bilirubin AST ALT Alkaline Phosphatase Total Protein Total Protein (PEP) Albumin Albumin (PEP) Globulin Albumin/Globulin Ratio Beta Globulins BEBA M-Isaac c-ANCA Proteinase 3 (PR3) p-ANCA Atypical p-ANCA Myeloperoxidase Ab HCV Quantitation Hepatitis C RNA 09/27/17 09/27/17 09/27/17 05:55 06:00 06:00 WBC 24.6 H D RBC 3.47 L Hgb 11.2 Hct 33.7 MCV 97.1 H MCH 32.3 MCHC 33.3 RDW 13.4 Plt Count 168 MPV 10.7 Total Counted 101 Neutrophils % No Result Required. Neutrophils % (Manual) 43.6 D Band Neutrophils % 0.0 Lymphocytes % No Result Required. Lymphocytes % (Manual) 45.5 H D Monocytes % (Manual) 5 Eosinophils % (Manual) 3.0 D Basophils % (Manual) 0.0 Myelocytes % (Man) 1 Promyelocytes % (Man) 0 Blast Cells % (Manual) 0 Nucleated RBC % 0 Metamyelocytes 0 Platelet Estimate Normal Sodium 144 Potassium 3.3 L Chloride 107 Carbon Dioxide 30 Anion Gap 7 L BUN 27 H Creatinine 1.2 H Creat Clearance w eGFR 45.52 POC Glucometer 101 Random Glucose 102 Calcium 7.5 L Phosphorus 3.3 Magnesium 1.8 Total Bilirubin 0.4 AST 11 L ALT 17 Alkaline Phosphatase 72 Total Protein 5.7 L Total Protein (PEP) Albumin 2.5 L Albumin (PEP) Globulin Albumin/Globulin Ratio Beta Globulins BEBA M-Isaac c-ANCA Proteinase 3 (PR3) p-ANCA Atypical p-ANCA Myeloperoxidase Ab HCV Quantitation Hepatitis C RNA 09/27/17 06:00 WBC RBC Hgb Hct MCV MCH MCHC RDW Plt Count MPV Total Counted Neutrophils % Neutrophils % (Manual) Band Neutrophils % Lymphocytes % Lymphocytes % (Manual) Monocytes % (Manual) Eosinophils % (Manual) Basophils % (Manual) Myelocytes % (Man) Promyelocytes % (Man) Blast Cells % (Manual) Nucleated RBC % Metamyelocytes Platelet Estimate Sodium Potassium Chloride Carbon Dioxide Anion Gap BUN Creatinine Creat Clearance w eGFR POC Glucometer Random Glucose Calcium Phosphorus Magnesium Cancelled Total Bilirubin AST ALT Alkaline Phosphatase Total Protein Total Protein (PEP) Albumin Albumin (PEP) Globulin Albumin/Globulin Ratio Beta Globulins EBBA M-Isaac c-ANCA Proteinase 3 (PR3) p-ANCA Atypical p-ANCA Myeloperoxidase Ab HCV Quantitation Hepatitis C RNA Active Medications Generic Name Dose Route Start Last Admin Trade Name Freq PRN Reason Stop Dose Admin Acetaminophen 650 mg 09/25/17 21:37 Tylenol - PO Q6H PRN FEVER Amlodipine Besylate 10 mg 09/26/17 10:00 09/26/17 11:18 Norvasc - PO 10 mg DAILY PÉREZ Administration Atorvastatin Calcium 40 mg 09/25/17 22:00 09/26/17 22:09 Lipitor - PO 40 mg HS PÉREZ Administration Diphenhydramine HCl 25 mg 09/25/17 21:37 09/26/17 22:09 Benadryl Injection - IVPUSH 25 mg Q6H PRN Administration FOR ITCHING Fluocinonide 1 applic 09/25/17 14:49 09/26/17 22:10 Lidex 0.05% Ointment - TP 1 appful BID PÉREZ Administration Gabapentin 300 mg 09/25/17 22:00 09/27/17 06:16 Neurontin - PO 300 mg TID PÉREZ Administration Heparin Sodium (Porcine) 5,000 unit 09/25/17 22:00 09/27/17 06:16 Heparin - SQ 5,000 unit TID PÉREZ Administration Hydralazine HCl 10 mg 09/27/17 10:00 Apresoline - PO BID PÉREZ Insulin Aspart 1 vial 09/25/17 22:00 09/27/17 06:17 Novolog Vial Sliding Scale - SQ Not Given ACHS [facility] Protocol Loratadine 10 mg 09/26/17 10:00 09/26/17 11:18 Claritin - PO 10 mg DAILY PÉREZ Administration Metoprolol Succinate 100 mg 09/25/17 22:00 09/26/17 22:09 Toprol Xl - PO 100 mg BID PÉREZ Administration Mupirocin 1 applic 09/25/17 22:00 09/26/17 22:10 Bactroban 2% Ointment - TP 1 appful BID PÉREZ Administration Nystatin 500,000 units 09/26/17 00:00 09/27/17 06:16 Nystatin Oral Suspension - PO 500,000 units Q6HPO PÉREZ Administration Phenobarbital 90 mg 09/25/17 22:00 09/26/17 22:11 Phenobarbital - PO 90 mg BID PÉREZ Administration Prednisone 20 mg 09/26/17 10:00 09/26/17 11:18 Deltasone - PO 20 mg DAILY PÉREZ Administration ASSESSMENT/PLAN: Patient is a 62 year old female with a significant past medical history of diabetes, hypertension, morbid obesity, cholecystectomy, gastric sleeve 2016, epilepsy (last seizure 4 years ago). She presented to the ED on 09/17/2017 with nausea/vomiting after eating pizza at home. During hospitalization, patient was evaluated by GI surgery, no obstruction seen on CT scan of abdomen. Hospitalization further complicated when patient had a diffused generalized rash after being started on Ceftriaxone for UTI. GI: Nausea/vomiting, resolved Tolerating diet, seen by GI Morbid obesity s/p gastric sleeve Apx 120 weight loss since surgery as per pt Outpatient followup in 2 weeks of d/c Derm: Generalized diffused erythema Likely secondary to Ceftriaxone Allergy placed on medical record Allergy test as outpatient Seen by dermatology On Bactroban, Prednisone 20mg daily, with taper and antihistamines. ID: Urosepsis Gentamycin given as per ID WBC bumped up again today @ 24.6 Reculture Card: Hypertension, chronic Lisinopril on hold for BELEM Metoprolol 100mg BID Norvasc 10mg daily Started on Hydralazine 10mg BID Prolonged QTC on ekg Avoid meds that prolong qtc Neuro: Epilepsy, controlled on Phenobarbital Continue Pnenobarbital PO Dizziness, mild headache, resolved Renal: BELEM @ 1.2 Hold Lisinopril d/c pryor, voiding trial Renal following Endocrine: Diabetes, chronic Novolog, monitor BGMs F.E.N. Fluids: tolerating PO Electrolytes: monitor levels Nutrition: diabetic diet Prophylaxis: DVT: SCDs GI: deferred Disposition: full code Visit type - Emergency Visit Emergency Visit: Yes ED Registration Date: 09/21/17 Care time: The patient presented to the Emergency Department on the above date and was hospitalized for further evaluation of their emergent condition. - New Patient This patient is new to me today: No - Critical Care Critical Care patient: No - Discharge Referral Referred to [facility] Med P.C.: No
[2017-09-27] MEDS: hydrALAZINE HCL 10 MG TABLET PO SCH ×2 (11:21→21:51)
[2017-09-27] MEDS: PHENobarbital 30 MG TABLET PO SCH ×2 (11:21→21:49)
[2017-09-27] MEDS: LORATADINE 10 MG TABLET PO SCH (11:22)
[2017-09-27] MEDS: FLUOCINONIDE 0.05% TOP OINT (15 GM TUBE) TP SCH ×2 (11:22→21:55)
[2017-09-27] MEDS: amLODIPine BESYLATE 10 MG TABLET (FP) PO SCH (11:22)
[2017-09-27] MEDS: MUPIROCIN 2% TOPICAL OINTMENT 22 GM TUBE TP SCH ×2 (11:22→21:55)
[2017-09-27] MEDS: predniSONE 20 MG TABLET (UD) PO SCH (11:22)
--- NOTE | 2017-09-27 12:57 | PN ---
Progress Note, Physician History of Present Illness: Pt seen and examined at bedside. She is awake and alert. She is out of bed to chair. - Current Medication List Current Medications: Active Medications Acetaminophen (Tylenol -) 650 mg PO Q6H PRN PRN Reason: FEVER Amlodipine Besylate (Norvasc -) 10 mg PO DAILY [facility] Last Admin: 09/27/17 11:22 Dose: 10 mg Atorvastatin Calcium (Lipitor -) 40 mg PO HS [facility] Last Admin: 09/26/17 22:09 Dose: 40 mg Diphenhydramine HCl (Benadryl Injection -) 25 mg IVPUSH Q6H PRN PRN Reason: FOR ITCHING Last Admin: 09/26/17 22:09 Dose: 25 mg Fluocinonide (Lidex 0.05% Ointment -) 1 applic TP BID [facility] Last Admin: 09/27/17 11:22 Dose: 1 appful Gabapentin (Neurontin -) 300 mg PO TID [facility] Last Admin: 09/27/17 06:16 Dose: 300 mg Heparin Sodium (Porcine) (Heparin -) 5,000 unit SQ TID [facility] Last Admin: 09/27/17 06:16 Dose: 5,000 unit Hydralazine HCl (Apresoline -) 10 mg PO BID [facility] Last Admin: 09/27/17 11:21 Dose: 10 mg Insulin Aspart (Novolog Vial Sliding Scale -) 1 vial SQ ACHS [facility] PRN Reason: Protocol Last Admin: 09/27/17 12:24 Dose: Not Given Loratadine (Claritin -) 10 mg PO DAILY [facility] Last Admin: 09/27/17 11:22 Dose: 10 mg Metoprolol Succinate (Toprol Xl -) 100 mg PO BID [facility] Last Admin: 09/27/17 11:22 Dose: 100 mg Mupirocin (Bactroban 2% Ointment -) 1 applic TP BID [facility] Last Admin: 09/27/17 11:22 Dose: 1 appful Nystatin (Nystatin Oral Suspension -) 500,000 units PO Q6HPO [facility] Last Admin: 09/27/17 06:16 Dose: 500,000 units Phenobarbital (Phenobarbital -) 90 mg PO BID [facility] Last Admin: 09/27/17 11:21 Dose: 90 mg Prednisone (Deltasone -) 20 mg PO DAILY [facility] Last Admin: 09/27/17 11:22 Dose: 20 mg - Objective Vital Signs: Vital Signs Temperature 98 F 09/27/17 06:00 Pulse Rate 69 09/27/17 06:00 Respiratory Rate 20 09/27/17 06:00 Blood Pressure 181/76 09/27/17 06:00 O2 Sat by Pulse Oximetry (%) 96 09/26/17 20:37 Constitutional: Yes: Calm Eyes: Yes: Conjunctiva Clear HENT: Yes: Atraumatic Neck: Yes: Supple Cardiovascular: Yes: S1, S2 Respiratory: Yes: CTA Bilaterally Gastrointestinal: Yes: Soft, Abdomen, Obese Genitourinary: Yes: Rodríguez Present Musculoskeletal: Yes: WNL Edema: LLE: Trace, RLE: Trace Integumentary: Yes: Other (rash improving) Neurological: Yes: Oriented Psychiatric: Yes: Oriented Labs: CBC, BMP 09/27/17 06:00 09/27/17 06:00 Problem List - Problems (1) Acute kidney injury Code(s): N17.9 - ACUTE KIDNEY FAILURE, UNSPECIFIED (2) Lactic acidosis Code(s): E87.2 - ACIDOSIS (3) Sepsis Code(s): A41.9 - SEPSIS, UNSPECIFIED ORGANISM (4) UTI (urinary tract infection) Code(s): N39.0 - URINARY TRACT INFECTION, SITE NOT SPECIFIED (5) Bariatric surgery status Code(s): Z98.84 - BARIATRIC SURGERY STATUS (6) Diabetes Code(s): E11.9 - TYPE 2 DIABETES MELLITUS WITHOUT COMPLICATIONS Qualifiers: Diabetes mellitus type: type 2 Chronic kidney disease stage: stage 1 (7) Hyperlipidemia Code(s): E78.5 - HYPERLIPIDEMIA, UNSPECIFIED Qualifiers: Hyperlipidemia type: mixed hyperlipidemia Qualified Code(s): E78.2 - Mixed hyperlipidemia (8) Hypertension Code(s): I10 - ESSENTIAL (PRIMARY) HYPERTENSION Qualifiers: Hypertension type: essential hypertension Qualified Code(s): I10 - Essential (primary) hypertension (9) Morbid (severe) obesity due to excess calories Code(s): E66.01 - MORBID (SEVERE) OBESITY DUE TO EXCESS CALORIES Assessment/Plan Current Medications Generic Name Dose Route Start Last Admin Trade Name Freq PRN Reason Stop Dose Admin Acetaminophen 650 mg 09/25/17 21:37 Tylenol - PO Q6H PRN FEVER Amlodipine Besylate 10 mg 09/26/17 10:00 09/27/17 11:22 Norvasc - PO 10 mg DAILY PÉREZ Administration Atorvastatin Calcium 40 mg 09/25/17 22:00 09/26/17 22:09 Lipitor - PO 40 mg HS PÉREZ Administration Diphenhydramine HCl 25 mg 09/25/17 21:37 09/26/17 22:09 Benadryl Injection - IVPUSH 25 mg Q6H PRN Administration FOR ITCHING Fluocinonide 1 applic 09/25/17 14:49 09/27/17 11:22 Lidex 0.05% Ointment - TP 1 appful BID PÉREZ Administration Gabapentin 300 mg 09/25/17 22:00 09/27/17 06:16 Neurontin - PO 300 mg TID PÉREZ Administration Heparin Sodium (Porcine) 5,000 unit 09/25/17 22:00 09/27/17 06:16 Heparin - SQ 5,000 unit TID PÉREZ Administration Hydralazine HCl 10 mg 09/27/17 10:00 09/27/17 11:21 Apresoline - PO 10 mg BID PÉREZ Administration Insulin Aspart 1 vial 09/25/17 22:00 09/27/17 12:24 Novolog Vial Sliding Scale - SQ Not Given ACHS PÉREZ Protocol Loratadine 10 mg 09/26/17 10:00 09/27/17 11:22 Claritin - PO 10 mg DAILY PÉREZ Administration Metoprolol Succinate 100 mg 09/25/17 22:00 09/27/17 11:22 Toprol Xl - PO 100 mg BID PÉREZ Administration Mupirocin 1 applic 09/25/17 22:00 09/27/17 11:22 Bactroban 2% Ointment - TP 1 appful BID PÉREZ Administration Nystatin 500,000 units 09/26/17 00:00 09/27/17 06:16 Nystatin Oral Suspension - PO 500,000 units Q6HPO PÉREZ Administration Phenobarbital 90 mg 09/25/17 22:00 09/27/17 11:21 Phenobarbital - PO 90 mg BID PÉREZ Administration Prednisone 20 mg 09/26/17 10:00 09/27/17 11:22 Deltasone - PO 20 mg DAILY PÉREZ Administration Laboratory Tests 09/21/17 09/22/17 09/22/17 14:00 08:10 08:10 Urine Eosinophils None seen BEBA M-Isaac Not observed YOLI Screen Negative c-ANCA <1:20 Proteinase 3 (PR3) <3.5 p-ANCA <1:20 Atypical p-ANCA <1:20 Myeloperoxidase Ab <9.0 Double Strand DNA Ab <1 Glomerular Base Memb Ab 3 Hep Bs Antigen Negative Hep Bs Antibody Non reactive Hep B Core Total Ab Negative HCV Quantitation Hcv not detected Impression 1. BELEM 2. CKD 3. sepsis 4. hypotension 5. rash 6. possible drug reaction 7. obesity 8. DM 9. hx htn 10. lactic acidosis 11. prolonged qt Plan - replace potassium - voiding trial - monitor renal function - workup negative so far - pt clinically is improving
[2017-09-27 18:20] LABS: URINE APPEARANCE SLCLOUDY; URINE BILIRUBIN NEGATIVE (<2.0 mg/dL); URINE COLOR LTYELLOW; URINE GLUCOSE (UA) 1+ (NEGATIVE); URINE KETONE NEGATIVE (NEGATIVE); URINE LEUK ESTERASE TRACE (NEGATIVE); URINE NITRITE NEGATIVE (NEGATIVE); URINE PROTEIN NEGATIVE (NEGATIVE); URINE UROBILINOGEN NEGATIVE mg/dL (0.2-1.0)
[2017-09-27 18:28] LABS: EPI CELLS RARE /HPF (FEW); URINE BACTERIA RARE /hpf (NONE SEEN); URINE HYALINE CAST 1 /lpf; URINE MUCUS RARE
[2017-09-27] MEDS: ATORVASTATIN CA 40 MG TABLET (FP) PO SCH (21:50)
[2017-09-28] MEDS: NYSTATIN 500,000 UNITS/5 ML SUSPENSION PO SCH ×3 (06:07→17:43)
[2017-09-28] MEDS: GABAPENTIN 300 MG CAPSULE (FP) PO SCH ×3 (06:07→21:25)
[2017-09-28] MEDS: HEPARIN NA (PORCINE) 5,000 UNITS/ML 1ML VIAL SQ SCH ×3 (06:07→21:24)
[2017-09-28] MEDS: INSULIN SLIDING SCALE (NOVOLOG) 1 VIAL SQ SCH ×4 (06:08→21:24)
[2017-09-28] MEDS: PHENobarbital 30 MG TABLET PO SCH ×2 (09:02→21:23)
[2017-09-28] MEDS: LORATADINE 10 MG TABLET PO SCH (09:05)
[2017-09-28] MEDS: hydrALAZINE HCL 10 MG TABLET PO SCH ×2 (09:06→21:22)
[2017-09-28] MEDS: predniSONE 20 MG TABLET (UD) PO SCH (09:06)
[2017-09-28] MEDS: amLODIPine BESYLATE 10 MG TABLET (FP) PO SCH (09:06)
[2017-09-28] MEDS: FLUOCINONIDE 0.05% TOP OINT (15 GM TUBE) TP SCH ×2 (09:06→21:27)
[2017-09-28] MEDS: MUPIROCIN 2% TOPICAL OINTMENT 22 GM TUBE TP SCH ×2 (09:06→21:26)
[2017-09-28 09:11] LABS: HEMATOCRIT 33.1 % (32.4-45.2); MCH 32.4 pg (25.7-33.7); MCHC 33.3 g/dl (32.0-36.0); MEAN CELL VOLUME 97.5 fl (80-96); MEAN PLT VOLUME 10.2 fl (7.5-11.1); PLATELET COUNT 199 K/MM3 (134-434); RDW 13.6 % (11.6-15.6)
[2017-09-28 09:47] LABS: CHLORIDE 102 mmol/L (98-107); POTASSIUM 3.3 mmol/L (3.5-5.1); SODIUM 141 mmol/L (136-145)
[2017-09-28 09:56] LABS: ALBUMIN 2.6 g/dl (3.4-5.0); ALK PHOS 65 U/L (45-117); ANION GAP 8 (8-16); BILIRUBIN,TOTAL 0.4 mg/dL (0.2-1.0); BLOOD UREA NITROGEN 26 mg/dL (7-18); CALCIUM 7.5 mg/dL (8.5-10.1); CO2 31 mmol/L (21-32); CREATININE 1.3 mg/dL (0.55-1.02); GLUCOSE,RANDOM 115 mg/dL (74-106); MAGNESIUM 1.9 mg/dL (1.8-2.4); SGOT/AST 11 U/L (15-37); SGPT/ALT 19 U/L (12-78)
--- NOTE | 2017-09-28 10:33 | PN ---
Progress Note (short form) - Note Progress Note: Resting in NAD. Overall feeling better. No CP or SOB. Intake & Output 09/25/17 09/26/17 09/27/17 09/28/17 23:59 23:59 23:59 23:59 Intake Total 2602 1300 900 200 Output Total 6800 2100 1000 Balance -4198 -800 -100 200 Weight 252 lb 6.868 oz Last Vital Signs Temp Pulse Resp BP Pulse Ox 98 F 73 18 137/87 98 09/28/17 09:24 09/28/17 09:24 09/28/17 09:24 09/28/17 09:24 09/27/17 20:47 Active Medications Acetaminophen (Tylenol -) 650 mg PO Q6H PRN PRN Reason: FEVER Amlodipine Besylate (Norvasc -) 10 mg PO DAILY [facility] Last Admin: 09/28/17 09:06 Dose: 10 mg Atorvastatin Calcium (Lipitor -) 40 mg PO [facility] Last Admin: 09/27/17 21:50 Dose: 40 mg Diphenhydramine HCl (Benadryl Injection -) 25 mg IVPUSH Q6H PRN PRN Reason: FOR ITCHING Last Admin: 09/27/17 21:50 Dose: 25 mg Fluocinonide (Lidex 0.05% Ointment -) 1 applic TP BID [facility] Last Admin: 09/28/17 09:06 Dose: 1 appful Gabapentin (Neurontin -) 300 mg PO TID [facility] Last Admin: 09/28/17 06:07 Dose: 300 mg Heparin Sodium (Porcine) (Heparin -) 5,000 unit SQ TID [facility] Last Admin: 09/28/17 06:07 Dose: 5,000 unit Hydralazine HCl (Apresoline -) 10 mg PO BID [facility] Last Admin: 09/28/17 09:06 Dose: 10 mg Insulin Aspart (Novolog Vial Sliding Scale -) 1 vial SQ ACHS [facility] PRN Reason: Protocol Last Admin: 09/28/17 06:08 Dose: Not Given Loratadine (Claritin -) 10 mg PO DAILY [facility] Last Admin: 09/28/17 09:05 Dose: 10 mg Metoprolol Succinate (Toprol Xl -) 100 mg PO BID [facility] Last Admin: 09/28/17 09:06 Dose: 100 mg Mupirocin (Bactroban 2% Ointment -) 1 applic TP BID [facility] Last Admin: 09/28/17 09:06 Dose: 1 appful Nystatin (Nystatin Oral Suspension -) 500,000 units PO Q6HPO [facility] Last Admin: 09/28/17 06:07 Dose: 500,000 units Phenobarbital (Phenobarbital -) 90 mg PO BID [facility] Last Admin: 09/28/17 09:02 Dose: 90 mg Prednisone (Deltasone -) 20 mg PO DAILY [facility] Last Admin: 09/28/17 09:06 Dose: 20 mg Constitutional: Yes: NAD, improving rash Eyes: Yes: Conjunctiva Clear HENT: Yes: Atraumatic, Normocephalic Neck: Yes: Supple, Trachea Midline Cardiovascular: Yes: Regular Rate and Rhythm, S1, S2 Respiratory: Yes: Regular, CTA Bilaterally Gastrointestinal: Yes: Soft, Abdomen, Obese Renal/: Yes: Rodríguez Present Extremities: Yes: WNL Edema: Yes Edema: LLE: Trace, RLE: Trace Peripheral Pulses WNL: Yes Integumentary: Yes: Improving rash Neurological: Yes: WNL, Oriented, non-focal ...Motor Strength: WNL Psychiatric: Yes: Oriented Labs: Laboratory Results - last 24 hr 09/24/17 09/27/17 09/27/17 23:49 12:20 17:27 WBC RBC Hgb Hct MCV MCH MCHC RDW Plt Count MPV Neutrophils % Lymphocytes % Sodium Potassium Chloride Carbon Dioxide Anion Gap BUN Creatinine Creat Clearance w eGFR POC Glucometer [phone] 161 Random Glucose Calcium Magnesium Total Bilirubin AST ALT Alkaline Phosphatase Total Protein Albumin Urine Color Urine Appearance Urine pH Ur Specific [place] Urine Protein Urine Glucose (UA) Urine Ketones Urine Blood Urine Nitrite Urine Bilirubin Urine Urobilinogen Ur Leukocyte Esterase Urine WBC (Auto) Urine RBC (Auto) Ur Epithelial Cells Urine Bacteria Hyaline Casts Urine Mucus 09/27/17 09/27/17 09/28/17 17:45 21:43 06:07 WBC RBC Hgb Hct MCV MCH MCHC RDW Plt Count MPV Neutrophils % Lymphocytes % Sodium Potassium Chloride Carbon Dioxide Anion Gap BUN Creatinine Creat Clearance w eGFR POC Glucometer 142 105 Random Glucose Calcium Magnesium Total Bilirubin AST ALT Alkaline Phosphatase Total Protein Albumin Urine Color Ltyellow Urine Appearance Slcloudy Urine pH 6.0 Ur Specific [place] 1.010 Urine Protein Negative Urine Glucose (UA) 1+ H Urine Ketones Negative Urine Blood Negative Urine Nitrite Negative Urine Bilirubin Negative Urine Urobilinogen Negative Ur Leukocyte Esterase Trace Urine WBC (Auto) 4 Urine RBC (Auto) 2 Ur Epithelial Cells Rare Urine Bacteria Rare Hyaline Casts 1 Urine Mucus Rare 09/28/17 09/28/17 09:00 09:00 WBC 23.0 H RBC 3.40 L Hgb 11.0 Hct 33.1 MCV 97.5 H MCH 32.4 MCHC 33.3 RDW 13.6 Plt Count 199 MPV 10.2 Neutrophils % No Result Required. Lymphocytes % No Result Required. Sodium 141 Potassium 3.3 L Chloride 102 Carbon Dioxide 31 Anion Gap 8 BUN 26 H Creatinine 1.3 H Creat Clearance w eGFR 41.50 POC Glucometer Random Glucose 115 H Calcium 7.5 L Magnesium 1.9 Total Bilirubin 0.4 AST 11 L ALT 19 Alkaline Phosphatase 65 Total Protein 6.0 L Albumin 2.6 L Urine Color Urine Appearance Urine pH Ur Specific [place] Urine Protein Urine Glucose (UA) Urine Ketones Urine Blood Urine Nitrite Urine Bilirubin Urine Urobilinogen Ur Leukocyte Esterase Urine WBC (Auto) Urine RBC (Auto) Ur Epithelial Cells Urine Bacteria Hyaline Casts Urine Mucus Problem List - Problems (1) Acute kidney injury Code(s): N17.9 - ACUTE KIDNEY FAILURE, UNSPECIFIED (2) Drug rash Code(s): L27.0 - GEN SKIN ERUPTION DUE TO DRUGS AND MEDS TAKEN INTERNALLY (3) Lactic acidosis Code(s): E87.2 - ACIDOSIS (4) Sepsis Code(s): A41.9 - SEPSIS, UNSPECIFIED ORGANISM (5) UTI (urinary tract infection) Code(s): N39.0 - URINARY TRACT INFECTION, SITE NOT SPECIFIED (6) Bariatric surgery status Code(s): Z98.84 - BARIATRIC SURGERY STATUS (7) Diabetes Code(s): E11.9 - TYPE 2 DIABETES MELLITUS WITHOUT COMPLICATIONS Qualifiers: Diabetes mellitus type: type 2 Chronic kidney disease stage: stage 1 Assessment/Plan Acute generalized exanthematous pustulosis possibly due to Ceftriaxone Sepsis due to E coli UTI BELEM on CKD Prolonged QTc HTN Prednisone Benadryl VTE prophylaxis ABX per ID O2 as needed Avoid all agents that prolong QT interval Glycemic control Dr Alonzo
[2017-09-28] MEDS: POTASSIUM CHLORIDE TABS 20 MEQ TABLET.ER (FP) PO SCH (12:01)
[2017-09-28 12:55] LABS: ACANTHOCYTES 0; ANISOCYTOSIS 0; HELMET CELLS 0; HOWELL-JOLLY BODIES 0; MACROCYTOSIS 0; OVALOCYTE 0; PLATELET ESTIMATE NORMAL; ROULEAU 0; SICKELED CELLS 0; TARGET CELLS 0; TEAR DROP CELLS 0; TOXIC GRANULATION 0
--- NOTE | 2017-09-28 15:22 | PN ---
Progress Note (short form) - Note Progress Note: alert feels well konstantin d/vazquez yesterday on prednisone asked to see for elevated WBC no diarrhea no fevers eating well no abdominal pain or cough no dysuria Vital Signs Period Temp Pulse Resp BP Sys/Smith Pulse Ox Last 24 Hr 97.8 F-98.9 F 71-85 18-20 132-156/68-87 98 no thrush less periorbital swelling cor rrr lungs decreased bs at bases abd soft,nt no cvat, no suprapubic tenderness ext no edema resolving rash lower legs no open skin sores some peeling skin on chest and arms CBC, BMP 09/28/17 09:00 09/28/17 09:00 a/p leukocytosis- with lymphocytosis- would observe for now, agree with art/elin pryor and obtaining blood cultures drug [id number] fevers-resolved ak-resolving overall improved suspect wbc secondary to steroids or leukemoid reaction? but agree that cultures are appropriate in this setting will f/u in am Problem List - Problems (1) Sepsis Code(s): A41.9 - SEPSIS, UNSPECIFIED ORGANISM (2) Drug rash Code(s): L27.0 - GEN SKIN ERUPTION DUE TO DRUGS AND MEDS TAKEN INTERNALLY (3) Acute kidney injury Code(s): N17.9 - ACUTE KIDNEY FAILURE, UNSPECIFIED (4) Lactic acidosis Code(s): E87.2 - ACIDOSIS
--- NOTE | 2017-09-28 15:26 | PN ---
Physical Exam: SUBJECTIVE: Patient seen and examined at the bedside. Feels well, in no distress. States she feels so much better, no nausea, no vomiting. Understands that she is still here for elevated WBC and that we are monitoring her off antibiotics OBJECTIVE: WBC elevated but improved from yesterday Asked ID to see her again for WBC elevation Vital Signs Period Temp Pulse Resp BP Sys/Smith Pulse Ox Last 24 Hr 97.8 F-98.9 F 71-85 18-20 132-156/68-87 98 GENERAL: The patient is awake, alert, and fully oriented, in no acute distress. HEAD: Normal with no signs of trauma. EYES: PERRL, extraocular movements intact, sclera anicteric, conjunctiva clear. No ptosis. ENT: Ears normal, nares patent, oropharynx clear without exudates, moist mucous membranes. NECK: Trachea midline, full range of motion, supple. LUNGS: Breath sounds equal, clear to auscultation bilaterally, no wheezes, no crackles, no accessory muscle use. HEART: Regular rate and rhythm ABDOMEN: Soft, nontender, nondistended, hypoactive bowel sounds, no guarding, no rebound, +flatus, BM yesterday EXTREMITIES: no edema. NEUROLOGICAL: Normal speech, gait not observed. PSYCH: Normal mood, normal affect. SKIN: healed abdominal surgical scars, generalized rash that appears to be healing s/p allergic reaction likely to ceftriaxone Laboratory Results - last 24 hr 09/27/17 09/27/17 09/27/17 17:27 17:45 21:43 WBC RBC Hgb Hct MCV MCH MCHC RDW Plt Count MPV Total Counted Neutrophils % Neutrophils % (Manual) Band Neutrophils % Lymphocytes % Lymphocytes % (Manual) Monocytes % (Manual) Eosinophils % (Manual) Basophils % (Manual) Myelocytes % (Man) Promyelocytes % (Man) Blast Cells % (Manual) Nucleated RBC % Metamyelocytes Hypochromia Toxic Granulation Dohle Bodies Platelet Estimate Polychromasia Poikilocytosis Basophilic Stippling Anisocytosis Microcytosis Macrocytosis Spherocytes Sickle Cells Target Cells Tear Drop Cells Ovalocytes Stomatocytes Helmet Cells [place] Bodies [place] Rings [place] Cells Acanthocytes (Spur) Rouleaux Fragmented RBCs Schistocytes Sodium Potassium Chloride Carbon Dioxide Anion Gap BUN Creatinine Creat Clearance w eGFR POC Glucometer 161 142 Random Glucose Calcium Magnesium Total Bilirubin AST ALT Alkaline Phosphatase Total Protein Albumin Urine Color Ltyellow Urine Appearance Slcloudy Urine pH 6.0 Ur Specific Cammal 1.010 Urine Protein Negative Urine Glucose (UA) 1+ H Urine Ketones Negative Urine Blood Negative Urine Nitrite Negative Urine Bilirubin Negative Urine Urobilinogen Negative Ur Leukocyte Esterase Trace Urine WBC (Auto) 4 Urine RBC (Auto) 2 Ur Epithelial Cells Rare Urine Bacteria Rare Hyaline Casts 1 Urine Mucus Rare 09/28/17 09/28/17 09/28/17 06:07 09:00 09:00 WBC 23.0 H RBC 3.40 L Hgb 11.0 Hct 33.1 MCV 97.5 H MCH 32.4 MCHC 33.3 RDW 13.6 Plt Count 199 MPV 10.2 Total Counted 100 Neutrophils % No Result Required. Neutrophils % (Manual) 27.0 L D Band Neutrophils % 0.0 Lymphocytes % No Result Required. Lymphocytes % (Manual) 50.0 H Monocytes % (Manual) 3 L Eosinophils % (Manual) 2.0 Basophils % (Manual) 0.0 Myelocytes % (Man) 4 H D Promyelocytes % (Man) 0 Blast Cells % (Manual) 0 Nucleated RBC % 0 Metamyelocytes 2 D Hypochromia 0 Toxic Granulation 0 Dohle Bodies 0 Platelet Estimate Normal Polychromasia 0 Poikilocytosis 0 Basophilic Stippling 0 Anisocytosis 0 Microcytosis 0 Macrocytosis 0 Spherocytes 0 Sickle Cells 0 Target Cells 0 Tear Drop Cells 0 Ovalocytes 0 Stomatocytes 0 Helmet Cells 0 [place] Bodies 0 [place] Rings 0 [place] Cells 0 Acanthocytes (Spur) 0 Rouleaux 0 Fragmented RBCs 0 Schistocytes 0 Sodium 141 Potassium 3.3 L Chloride 102 Carbon Dioxide 31 Anion Gap 8 BUN 26 H Creatinine 1.3 H Creat Clearance w eGFR 41.50 POC Glucometer 105 Random Glucose 115 H Calcium 7.5 L Magnesium 1.9 Total Bilirubin 0.4 AST 11 L ALT 19 Alkaline Phosphatase 65 Total Protein 6.0 L Albumin 2.6 L Urine Color Urine Appearance Urine pH Ur Specific Cammal Urine Protein Urine Glucose (UA) Urine Ketones Urine Blood Urine Nitrite Urine Bilirubin Urine Urobilinogen Ur Leukocyte Esterase Urine WBC (Auto) Urine RBC (Auto) Ur Epithelial Cells Urine Bacteria Hyaline Casts Urine Mucus 09/28/17 12:03 WBC RBC Hgb Hct MCV MCH MCHC RDW Plt Count MPV Total Counted Neutrophils % Neutrophils % (Manual) Band Neutrophils % Lymphocytes % Lymphocytes % (Manual) Monocytes % (Manual) Eosinophils % (Manual) Basophils % (Manual) Myelocytes % (Man) Promyelocytes % (Man) Blast Cells % (Manual) Nucleated RBC % Metamyelocytes Hypochromia Toxic Granulation Dohle Bodies Platelet Estimate Polychromasia Poikilocytosis Basophilic Stippling Anisocytosis Microcytosis Macrocytosis Spherocytes Sickle Cells Target Cells Tear Drop Cells Ovalocytes Stomatocytes Helmet Cells [place] Bodies [place] Cells Acanthocytes (Spur) Rouleaux Fragmented RBCs Schistocytes Sodium Potassium Chloride Carbon Dioxide Anion Gap BUN Creatinine Creat Clearance w eGFR POC Glucometer 170 Random Glucose Calcium Magnesium Total Bilirubin AST ALT Alkaline Phosphatase Total Protein Albumin Urine Color Urine Appearance Urine pH Ur Specific [place] Urine Protein Urine Glucose (UA) Urine Ketones Urine Blood Urine Nitrite Urine Bilirubin Urine Urobilinogen Ur Leukocyte Esterase Urine WBC (Auto) Urine RBC (Auto) Ur Epithelial Cells Urine Bacteria Hyaline Casts Urine Mucus Active Medications Generic Name Dose Route Start Last Admin Trade Name Freq PRN Reason Stop Dose Admin Acetaminophen 650 mg 09/25/17 21:37 Tylenol - PO Q6H PRN FEVER Amlodipine Besylate 10 mg 09/26/17 10:00 09/28/17 09:06 Norvasc - PO 10 mg DAILY PÉREZ Administration Atorvastatin Calcium 40 mg 09/25/17 22:00 09/27/17 21:50 Lipitor - PO 40 mg HS PÉREZ Administration Diphenhydramine HCl 25 mg 09/25/17 21:37 09/27/17 21:50 Benadryl Injection - IVPUSH 25 mg Q6H PRN Administration FOR ITCHING Fluocinonide 1 applic 09/25/17 14:49 09/28/17 09:06 Lidex 0.05% Ointment - TP 1 appful BID PÉREZ Administration Gabapentin 300 mg 09/25/17 22:00 09/28/17 14:56 Neurontin - PO 300 mg TID PÉREZ Administration Heparin Sodium (Porcine) 5,000 unit 09/25/17 22:00 09/28/17 14:56 Heparin - SQ 5,000 unit TID PÉREZ Administration Hydralazine HCl 10 mg 09/27/17 10:00 09/28/17 09:06 Apresoline - PO 10 mg BID PÉREZ Administration Insulin Aspart 1 vial 09/25/17 22:00 09/28/17 12:07 Novolog Vial Sliding Scale - SQ Not Given ACHS [facility] Protocol Loratadine 10 mg 09/26/17 10:00 09/28/17 09:05 Claritin - PO 10 mg DAILY PÉREZ Administration Metoprolol Succinate 100 mg 09/25/17 22:00 09/28/17 09:06 Toprol Xl - PO 100 mg BID PÉREZ Administration Mupirocin 1 applic 09/25/17 22:00 09/28/17 09:06 Bactroban 2% Ointment - TP 1 appful BID PÉREZ Administration Nystatin 500,000 units 09/26/17 00:00 09/28/17 12:00 Nystatin Oral Suspension - PO 500,000 units Q6HPO PÉREZ Administration Phenobarbital 90 mg 09/25/17 22:00 09/28/17 09:02 Phenobarbital - PO 90 mg BID PÉREZ Administration Potassium Chloride 40 meq 09/28/17 10:45 09/28/17 12:01 K-Dur - PO 40 meq DAILY PÉREZ Administration Prednisone 20 mg 09/26/17 10:00 09/28/17 09:06 Deltasone - PO 20 mg DAILY PÉREZ Administration ASSESSMENT/PLAN: Patient is a 62 year old female with a significant past medical history of diabetes, hypertension, morbid obesity, cholecystectomy, gastric sleeve 2016, epilepsy (last seizure 4 years ago). She presented to the ED on 09/17/2017 with nausea/vomiting after eating pizza at home. During hospitalization, patient was evaluated by GI surgery, no obstruction seen on CT scan of abdomen. Hospitalization further complicated when patient had a diffused generalized rash after being started on Ceftriaxone for UTI. GI: Nausea/vomiting, resolved Tolerating diet, seen by GI Morbid obesity s/p gastric sleeve Apx 120 weight loss since surgery as per pt Outpatient followup in 2 weeks of d/c Derm: Generalized diffused erythema Likely secondary to Ceftriaxone Allergy placed on medical record Allergy test as outpatient Seen by dermatology On Bactroban, Prednisone 20mg daily, with taper and antihistamines ID: Urosepsis Gentamycin given as per ID WBC elevated but trending down Monitor off antibiotics Card: Hypertension, chronic Lisinopril on hold for BELEM Metoprolol 100mg BID Norvasc 10mg daily Started on Hydralazine 10mg BID Prolonged QTC on ekg Avoid meds that prolong qtc Neuro: Epilepsy, controlled on Phenobarbital Continue Pnenobarbital PO Dizziness, mild headache, resolved Renal: BELEM @ 1.3 Hold Lisinopril d/c pryor, voiding trial Renal following Endocrine: Diabetes, chronic Novolog, monitor BGMs F.E.N. Fluids: tolerating PO Electrolytes: monitor levels Nutrition: diabetic diet Prophylaxis: DVT: SCDs GI: deferred Disposition: full code
--- NOTE | 2017-09-28 16:42 | PN ---
Progress Note, Physician History of Present Illness: Pt seen and examined at bedside. She is awake and alert. She denies shortness of breath. - Current Medication List Current Medications: Active Medications Acetaminophen (Tylenol -) 650 mg PO Q6H PRN PRN Reason: FEVER Amlodipine Besylate (Norvasc -) 10 mg PO DAILY [facility] Last Admin: 09/28/17 09:06 Dose: 10 mg Atorvastatin Calcium (Lipitor -) 40 mg PO HS [facility] Last Admin: 09/27/17 21:50 Dose: 40 mg Diphenhydramine HCl (Benadryl Injection -) 25 mg IVPUSH Q6H PRN PRN Reason: FOR ITCHING Last Admin: 09/27/17 21:50 Dose: 25 mg Fluocinonide (Lidex 0.05% Ointment -) 1 applic TP BID [facility] Last Admin: 09/28/17 09:06 Dose: 1 appful Gabapentin (Neurontin -) 300 mg PO TID [facility] Last Admin: 09/28/17 14:56 Dose: 300 mg Heparin Sodium (Porcine) (Heparin -) 5,000 unit SQ TID [facility] Last Admin: 09/28/17 14:56 Dose: 5,000 unit Hydralazine HCl (Apresoline -) 10 mg PO BID [facility] Last Admin: 09/28/17 09:06 Dose: 10 mg Insulin Aspart (Novolog Vial Sliding Scale -) 1 vial SQ ACHS [facility] PRN Reason: Protocol Last Admin: 09/28/17 12:07 Dose: Not Given Loratadine (Claritin -) 10 mg PO DAILY [facility] Last Admin: 09/28/17 09:05 Dose: 10 mg Metoprolol Succinate (Toprol Xl -) 100 mg PO BID [facility] Last Admin: 09/28/17 09:06 Dose: 100 mg Mupirocin (Bactroban 2% Ointment -) 1 applic TP BID [facility] Last Admin: 09/28/17 09:06 Dose: 1 appful Nystatin (Nystatin Oral Suspension -) 500,000 units PO Q6HPO [facility] Last Admin: 09/28/17 12:00 Dose: 500,000 units Phenobarbital (Phenobarbital -) 90 mg PO BID [facility] Last Admin: 09/28/17 09:02 Dose: 90 mg Potassium Chloride (K-Dur -) 40 meq PO DAILY [facility] Last Admin: 09/28/17 12:01 Dose: 40 meq Prednisone (Deltasone -) 20 mg PO DAILY [facility] Last Admin: 09/28/17 09:06 Dose: 20 mg - Objective Vital Signs: Vital Signs Temperature 97.9 F 09/28/17 14:50 Pulse Rate 85 09/28/17 14:50 Respiratory Rate 20 09/28/17 14:50 Blood Pressure 139/78 09/28/17 14:50 O2 Sat by Pulse Oximetry (%) 98 09/27/17 20:47 Constitutional: Yes: Calm Eyes: Yes: Conjunctiva Clear HENT: Yes: Atraumatic Neck: Yes: Supple Cardiovascular: Yes: S1, S2 Respiratory: Yes: CTA Bilaterally Gastrointestinal: Yes: Soft, Abdomen, Obese Genitourinary: Yes: WNL Musculoskeletal: Yes: WNL Edema: Yes Edema: LLE: Trace, RLE: Trace Neurological: Yes: Oriented, Pre-Existing Deficit Psychiatric: Yes: Oriented Labs: CBC, BMP 09/28/17 09:00 09/28/17 09:00 Problem List - Problems (1) Acute kidney injury Code(s): N17.9 - ACUTE KIDNEY FAILURE, UNSPECIFIED (2) Lactic acidosis Code(s): E87.2 - ACIDOSIS (3) Sepsis Code(s): A41.9 - SEPSIS, UNSPECIFIED ORGANISM (4) UTI (urinary tract infection) Code(s): N39.0 - URINARY TRACT INFECTION, SITE NOT SPECIFIED (5) Bariatric surgery status Code(s): Z98.84 - BARIATRIC SURGERY STATUS (6) Diabetes Code(s): E11.9 - TYPE 2 DIABETES MELLITUS WITHOUT COMPLICATIONS Qualifiers: Diabetes mellitus type: type 2 Chronic kidney disease stage: stage 1 (7) Hyperlipidemia Code(s): E78.5 - HYPERLIPIDEMIA, UNSPECIFIED Qualifiers: Hyperlipidemia type: mixed hyperlipidemia Qualified Code(s): E78.2 - Mixed hyperlipidemia (8) Hypertension Code(s): I10 - ESSENTIAL (PRIMARY) HYPERTENSION Qualifiers: Hypertension type: essential hypertension Qualified Code(s): I10 - Essential (primary) hypertension (9) Morbid (severe) obesity due to excess calories Code(s): E66.01 - MORBID (SEVERE) OBESITY DUE TO EXCESS CALORIES Assessment/Plan Current Medications Generic Name Dose Route Start Last Admin Trade Name Freq PRN Reason Stop Dose Admin Acetaminophen 650 mg 09/25/17 21:37 Tylenol - PO Q6H PRN FEVER Amlodipine Besylate 10 mg 09/26/17 10:00 09/28/17 09:06 Norvasc - PO 10 mg DAILY PÉREZ Administration Atorvastatin Calcium 40 mg 09/25/17 22:00 09/27/17 21:50 Lipitor - PO 40 mg HS PÉREZ Administration Diphenhydramine HCl 25 mg 09/25/17 21:37 09/27/17 21:50 Benadryl Injection - IVPUSH 25 mg Q6H PRN Administration FOR ITCHING Fluocinonide 1 applic 09/25/17 14:49 09/28/17 09:06 Lidex 0.05% Ointment - TP 1 appful BID PÉREZ Administration Gabapentin 300 mg 09/25/17 22:00 09/28/17 14:56 Neurontin - PO 300 mg TID PÉREZ Administration Heparin Sodium (Porcine) 5,000 unit 09/25/17 22:00 09/28/17 14:56 Heparin - SQ 5,000 unit TID PÉREZ Administration Hydralazine HCl 10 mg 09/27/17 10:00 09/28/17 09:06 Apresoline - PO 10 mg BID PÉREZ Administration Insulin Aspart 1 vial 09/25/17 22:00 09/28/17 12:07 Novolog Vial Sliding Scale - SQ Not Given ACHS [facility] Protocol Loratadine 10 mg 09/26/17 10:00 09/28/17 09:05 Claritin - PO 10 mg DAILY PÉREZ Administration Metoprolol Succinate 100 mg 09/25/17 22:00 09/28/17 09:06 Toprol Xl - PO 100 mg BID PÉREZ Administration Mupirocin 1 applic 09/25/17 22:00 09/28/17 09:06 Bactroban 2% Ointment - TP 1 appful BID PÉREZ Administration Nystatin 500,000 units 09/26/17 00:00 09/28/17 12:00 Nystatin Oral Suspension - PO 500,000 units Q6HPO P[facility]REZ Administration Phenobarbital 90 mg 09/25/17 22:00 09/28/17 09:02 Phenobarbital - PO 90 mg BID PÉREZ Administration Potassium Chloride 40 meq 09/28/17 10:45 09/28/17 12:01 K-Dur - PO 40 meq DAILY PÉREZ Administration Prednisone 20 mg 09/26/17 10:00 09/28/17 09:06 Deltasone - PO 20 mg DAILY PÉREZ Administration Impression 1. BELEM 2. CKD 3. sepsis 4. hypotension 5. rash 6. possible drug reaction 7. obesity 8. DM 9. hx htn 10. lactic acidosis 11. prolonged qt Plan - renal workup in progress - replace potassium - repeat labs in am - workup negative so far - pt clinically is improving
[2017-09-28] MEDS ORDERED: INSULIN (NOVOLOG) ASPART 100 UNITS/ML 10ML VIAL ONE (21:05)
[2017-09-28] MEDS: ATORVASTATIN CA 40 MG TABLET (FP) PO SCH (21:22)
[2017-09-29] MEDS: NYSTATIN 500,000 UNITS/5 ML SUSPENSION PO SCH ×3 (00:10→13:48)
[2017-09-29] MEDS: HEPARIN NA (PORCINE) 5,000 UNITS/ML 1ML VIAL SQ SCH ×2 (05:55→13:48)
[2017-09-29] MEDS: GABAPENTIN 300 MG CAPSULE (FP) PO SCH ×2 (05:55→13:48)
[2017-09-29] MEDS: INSULIN SLIDING SCALE (NOVOLOG) 1 VIAL SQ SCH ×2 (06:03→12:12)
[2017-09-29 07:29] LABS: BASO % 0.4 % (0-2.0); EOS % 2.3 % (0-4.5); HEMATOCRIT 30.6 % (32.4-45.2); HEMOGLOBIN 10.1 GM/dL (10.7-15.3); MCH 32.4 pg (25.7-33.7); MCHC 33.1 g/dl (32.0-36.0); MEAN CELL VOLUME 97.7 fl (80-96); MEAN PLT VOLUME 10.4 fl (7.5-11.1); MONO % 2.8 % (3.8-10.2); NEUT % 49.5 % (42.8-82.8); PLATELET COUNT 195 K/MM3 (134-434); RBC 3.13 M/mm3 (3.60-5.2); RDW 13.6 % (11.6-15.6); WHITE BLOOD COUNT 18.8 K/mm3 (4.0-10.0)
[2017-09-29 08:12] LABS: CHLORIDE 105 mmol/L (98-107); POTASSIUM 3.8 mmol/L (3.5-5.1); SODIUM 142 mmol/L (136-145)
[2017-09-29 08:21] LABS: ALBUMIN 2.6 g/dl (3.4-5.0); ALK PHOS 59 U/L (45-117); ANION GAP 9 (8-16); BILIRUBIN,TOTAL 0.3 mg/dL (0.2-1.0); BLOOD UREA NITROGEN 29 mg/dL (7-18); CALCIUM 7.5 mg/dL (8.5-10.1); CO2 28 mmol/L (21-32); CREATININE 1.2 mg/dL (0.55-1.02); GLUCOSE,RANDOM 91 mg/dL (74-106); MAGNESIUM 1.9 mg/dL (1.8-2.4); SGOT/AST 14 U/L (15-37); SGPT/ALT 21 U/L (12-78); TOT PROT 5.8 g/dl (6.4-8.2)
--- NOTE | 2017-09-29 09:17 | PN ---
Progress Note (short form) - Note Progress Note: feels well no complaints Vital Signs Period Temp Pulse Resp BP Sys/Smith Pulse Ox Last 24 Hr 97.8 F-98.9 F 71-85 18-20 117-147/57-87 97 cor-rrr lungs clear abd soft, nt ext no edema rash resolving CBC, BMP 09/29/17 06:50 09/29/17 06:30 Microbiology 09/27/17 12:15 Blood - Peripheral Venous Blood Culture - Preliminary NO GROWTH OBTAINED AFTER 24 HOURS, INCUBATION TO CONTINUE FOR 4 DAYS. 09/27/17 11:35 Blood - Peripheral Venous Blood Culture - Preliminary NO GROWTH OBTAINED AFTER 24 HOURS, INCUBATION TO CONTINUE FOR 4 DAYS. 09/21/17 02:35 Blood - Peripheral Venous Blood Culture - Final NO GROWTH AFTER 5 DAYS INCUBATION 09/21/17 02:35 Blood - Peripheral Venous Blood Culture - Final NO GROWTH AFTER 5 DAYS INCUBATION 09/21/17 13:00 Urine - Urine - Catheterized Urine Culture - Final NO GROWTH OBTAINED 09/17/17 22:45 Urine - Urine Clean Catch Urine Culture - Final Escherichia Coli a/p leukocytosis- with lymphocytosis- would observe off antibiotics, blood culture is negative at 24 h, ?secondary to steroids-on taper drug [id number] fevers-resolved ak-resolving overall improved Problem List - Problems (1) Sepsis Code(s): A41.9 - SEPSIS, UNSPECIFIED ORGANISM (2) Drug rash Code(s): L27.0 - GEN SKIN ERUPTION DUE TO DRUGS AND MEDS TAKEN INTERNALLY (3) Acute kidney injury Code(s): N17.9 - ACUTE KIDNEY FAILURE, UNSPECIFIED (4) Lactic acidosis Code(s): E87.2 - ACIDOSIS
[2017-09-29] MEDS ORDERED: PT OWN MED DRAWER 7, Y5N ONE (09:24)
[2017-09-29] MEDS ORDERED: predniSONE 10 MG TABLET (UD) PO SCH (10:00)
[2017-09-29] MEDS: hydrALAZINE HCL 10 MG TABLET PO SCH (10:40)
[2017-09-29] MEDS: POTASSIUM CHLORIDE TABS 20 MEQ TABLET.ER (FP) PO SCH (10:40)
[2017-09-29] MEDS: amLODIPine BESYLATE 10 MG TABLET (FP) PO SCH (10:40)
[2017-09-29] MEDS: LORATADINE 10 MG TABLET PO SCH (10:40)
[2017-09-29] MEDS: MUPIROCIN 2% TOPICAL OINTMENT 22 GM TUBE TP SCH (10:41)
[2017-09-29] MEDS: PHENobarbital 30 MG TABLET PO SCH (10:41)
[2017-09-29] MEDS: FLUOCINONIDE 0.05% TOP OINT (15 GM TUBE) TP SCH (10:43)
--- NOTE | 2017-09-29 12:38 | DS ---
Physical Exam: SUBJECTIVE: Patient seen and examined at the bedside. She feels well, eating well, and in no acute distress. OBJECTIVE: Spoke to patient and her daughter about elevated WBC and signs to look out for. Informed them the elevated WBC may be due to steriod therapy that we initiated after patient had an anaphylaxis response to Ceftriaxone. Patient is scheduled for repeat blood work in October 06 @ 12:45 with her PCP. All repeat blood work and cultures are negative and she remains afebrile x 7 days. Signs and symptoms to look out for discussed with daughter and patient and patient encouraged to return to the ER if she has fevers or general malaise. Vital Signs Period Temp Pulse Resp BP Sys/Smith Pulse Ox Last 24 Hr 97.8 F-98.9 F 71-85 18-20 117-147/57-78 97 PHYSICAL EXAM GENERAL: The patient is awake, alert, and fully oriented, in no acute distress. HEAD: Normal with no signs of trauma. EYES: PERRL, extraocular movements intact, sclera anicteric, conjunctiva clear. No ptosis. ENT: Ears normal, nares patent, oropharynx clear without exudates, moist mucous membranes. NECK: Trachea midline, full range of motion, supple. LUNGS: Breath sounds equal, clear to auscultation bilaterally, no wheezes, no crackles, no accessory muscle use. HEART: Regular rate and rhythm ABDOMEN: Soft, nontender, nondistended, hypoactive bowel sounds, no guarding, no rebound, +flatus, BM yesterday EXTREMITIES: no edema. NEUROLOGICAL: Normal speech, gait not observed. PSYCH: Normal mood, normal affect. SKIN: healed abdominal surgical scars, generalized rash that appears to be healing s/p allergic reaction likely to ceftriaxone Laboratory Results - last 24 hr 09/28/17 09/28/17 09/28/17 09:00 17:42 21:21 WBC RBC Hgb Hct MCV MCH MCHC RDW Plt Count MPV Total Counted 100 Neutrophils % Neutrophils % (Manual) 27.0 L D Band Neutrophils % 0.0 Lymphocytes % Lymphocytes % (Manual) 50.0 H Monocytes % Monocytes % (Manual) 3 L Eosinophils % Eosinophils % (Manual) 2.0 Basophils % Basophils % (Manual) 0.0 Myelocytes % (Man) 4 H D Promyelocytes % (Man) 0 Blast Cells % (Manual) 0 Nucleated RBC % 0 Metamyelocytes 2 D Hypochromia 0 Toxic Granulation 0 Dohle Bodies 0 Platelet Estimate Normal Polychromasia 0 Poikilocytosis 0 Basophilic Stippling 0 Anisocytosis 0 Microcytosis 0 Macrocytosis 0 Spherocytes 0 Sickle Cells 0 Target Cells 0 Tear Drop Cells 0 Ovalocytes 0 Stomatocytes 0 Helmet Cells 0 [place] Bodies 0 [place] Rings 0 Damon Cells 0 Acanthocytes (Spur) 0 Rouleaux 0 Fragmented RBCs 0 Schistocytes 0 Sodium Potassium Chloride Carbon Dioxide Anion Gap BUN Creatinine Creat Clearance w eGFR POC Glucometer 175 106 Random Glucose Calcium Magnesium Total Bilirubin AST ALT Alkaline Phosphatase Total Protein Albumin 09/29/17 09/29/17 09/29/17 06:03 06:30 06:50 WBC 18.8 H RBC 3.13 L Hgb 10.1 L Hct 30.6 L MCV 97.7 H MCH 32.4 MCHC 33.1 RDW 13.6 Plt Count 195 MPV 10.4 Total Counted Neutrophils % 49.5 D Neutrophils % (Manual) Band Neutrophils % Lymphocytes % 45.0 H D Lymphocytes % (Manual) Monocytes % 2.8 L Monocytes % (Manual) Eosinophils % 2.3 D Eosinophils % (Manual) Basophils % 0.4 D Basophils % (Manual) Myelocytes % (Man) Promyelocytes % (Man) Blast Cells % (Manual) Nucleated RBC % Metamyelocytes Hypochromia Toxic Granulation Dohle Bodies Platelet Estimate Polychromasia Poikilocytosis Basophilic Stippling Anisocytosis Microcytosis Macrocytosis Spherocytes Sickle Cells Target Cells Tear Drop Cells Ovalocytes Stomatocytes Helmet Cells [place] Bodies [place] Rings [place] Cells Acanthocytes (Spur) Rouleaux Fragmented RBCs Schistocytes Sodium 142 Potassium 3.8 Chloride 105 Carbon Dioxide 28 Anion Gap 9 BUN 29 H Creatinine 1.2 H Creat Clearance w eGFR 45.52 POC Glucometer 92 Random Glucose 91 Calcium 7.5 L Magnesium 1.9 Total Bilirubin 0.3 D AST 14 L ALT 21 Alkaline Phosphatase 59 Total Protein 5.8 L Albumin 2.6 L 09/29/17 11:50 WBC RBC Hgb Hct MCV MCH MCHC RDW Plt Count MPV Total Counted Neutrophils % Neutrophils % (Manual) Band Neutrophils % Lymphocytes % Lymphocytes % (Manual) Monocytes % Monocytes % (Manual) Eosinophils % Eosinophils % (Manual) Basophils % Basophils % (Manual) Myelocytes % (Man) Promyelocytes % (Man) Blast Cells % (Manual) Nucleated RBC % Metamyelocytes Hypochromia Toxic Granulation Dohle Bodies Platelet Estimate Polychromasia Poikilocytosis Basophilic Stippling Anisocytosis Microcytosis Macrocytosis Spherocytes Sickle Cells Target Cells Tear Drop Cells Ovalocytes Stomatocytes Helmet Cells [place] Bodies [place] Rings Damon Cells Acanthocytes (Spur) Rouleaux Fragmented RBCs Schistocytes Sodium Potassium Chloride Carbon Dioxide Anion Gap BUN Creatinine Creat Clearance w eGFR POC Glucometer 113 Random Glucose Calcium Magnesium Total Bilirubin AST ALT Alkaline Phosphatase Total Protein Albumin HOSPITAL COURSE: Date of Admission:09/21/17 Date of Discharge: 09/29/17 Hospital Course: Initial Hospital Course: Patient is a 62 year old female with a significant past medical history of diabetes, hypertension, morbid obesity, cholecystectomy, gastric sleeve 2017, epilepsy (last seizure 4 years ago). She presented to the ED on 09/17/2017 with nausea/vomiting after eating pizza at home. During hospitalization, patient was evaluated by GI surgery, no obstruction seen on CT scan of abdomen and patient's diet was advanced. Patient tolerated diet throughout hospitalization. Patient developed a fever and had signs of sepsis secondary to a UTI. She was initially treated with Ceftriaxone but hospitalization further complicated when patient had a diffused generalized rash and had an anaphylaxis reaction while on Ceftriaxone. She was treated with IV steriod therapy and then converted to Prednisone with a taper. For her UTI, she was treated with Gentamicin and was followed by an ID physician. Patient's WBC remains elevated (although trending down) likely secondary to the steroid therapy, however, repeat blood and urine cultures were ordered and are negative. Since her WBC remains elevated and she remains stable with no signs of infection, an appointment has been made for repeat blood work on October 06 @ 12:45pm with her PCP for lab work. Subsequent Hospital Course/Progress Note/Discharge Summary by a/p: GI: Nausea/vomiting, resolved Morbid obesity, s/p gastric sleeve Outpatient followup in 2 weeks of d/c Derm: Generalized diffused erythema, resolving Likely secondary to Ceftriaxone Allergy placed on medical record Allergy test as outpatient, patient and daughter encourage to see PCP for customer quality engineer referral Prednisone 10mg x 2 more days, then stop ID: Urosepsis, resolved Treated with Gentamycin Repeat UC and BC negative Card: Hypertension, chronic Lisinopril on hold for creat of 1.2 On Metoprolol 100mg BID, Norvasc 10mg daily, Hydralazine 10mg BID Prolonged QTC on ekg Avoid meds that prolong qtc Neuro: Epilepsy, controlled on Phenobarbital Dizziness, mild headache, resolved Renal: BELEM @ 1.3 Hold Lisinopril Endocrine: Diabetes, chronic Resume home meds Disposition: full code. Discharge home today with PCP follow up outpatient. Minutes to complete discharge: 60 Discharge Summary Reason For Visit: ANGINAL EQUIVALENT Current Active Problems Acute kidney injury (Acute) Anginal equivalent (Acute) Drug rash (Acute) Lactic acidosis (Acute) Sepsis (Acute) UTI (urinary tract infection) (Acute) Condition: Stable - Instructions Diet, Activity, Other Instructions: Mrs. Bladimir Mccoy: You were admitted to our hospital and treated for a urinary tract infection. During treatment you had a severe reaction to the antibiotic called Ceftriaxone. The reaction was severe and we treated you with a different antibiotic, steriods and antihistamines. Your repeat blood work and urine workup is now negative. It is important that you see Dr. Oliver on October 06 at 12:45p for repeat blood work. Your white cells are still high but there are no other signs of infection. They may be elevated because of the steriods we treated you with. We repeated your blood and urine cultures and they are negative for infection. You should not take any penicillins either Medications: You will be sent home with Prednisone for 2 more days (Prednisone 10mg daily tomorrow and Monday) then stop taking the steriods. Stop the Lisinopril until you see your primary care doctor and have repeat blood work. Hydralizine 10mg twice per day prescribed for high blood pressure. Amlodopine has been increased to 10mg from your home dose of 5mg Continue all your other home medications as prescribed. Please return to the hospital if you develop a fever, feel unwell or have nausea or vomiting. Please call me between the hours of 7am and 7pm if you have any questions, concerns. [facility] @ [facility] [phone] Referrals: José Oliver MD [Primary Care Provider] - (October 06 @ 12:45 p.m. ) Disposition: HOME - Home Medications Comprehensive Discharge Medication List: Ambulatory Orders Amlodipine Besylate 5 mg PO DAILY 11/16/16 Metoprolol Succinate [Toprol Xl] 100 mg PO BID 11/16/16 Atorvastatin Ca [Lipitor] 40 mg PO HS 11/17/16 Famotidine [Pepcid] 20 mg PO BID #60 tablet 11/17/16 Glipizide 5 mg PO DAILY 11/17/16 Lisinopril [Zestril] 5 mg PO DAILY 11/17/16 Phenobarbital 97.2 mg PO BID 11/17/16 Gabapentin [Neurontin -] 300 mg PO Q8H 09/17/17 This patient is new to me today: No Emergency Visit: Yes ED Registration Date: 09/21/17 Care time: The patient presented to the Emergency Department on the above date and was hospitalized for further evaluation of their emergent condition. Critical Care patient: No - Discharge Referral Referred to [facility] No
[2017-09-29 13:45] VITALS: BP 144/71; PULSE 79; TEMP 97.5
--- NOTE | 2017-09-29 15:06 | PN ---
Progress Note, Physician History of Present Illness: Pt seen and examined at bedside. She is awake and alert. She is eager to go home. She denies dysuria or hematuria. - Current Medication List Current Medications: Active Medications Acetaminophen (Tylenol -) 650 mg PO Q6H PRN PRN Reason: FEVER Amlodipine Besylate (Norvasc -) 10 mg PO DAILY [facility] Last Admin: 09/29/17 10:40 Dose: 10 mg Atorvastatin Calcium (Lipitor -) 40 mg PO HS [facility] Last Admin: 09/28/17 21:22 Dose: 40 mg Diphenhydramine HCl (Benadryl Injection -) 25 mg IVPUSH Q6H PRN PRN Reason: FOR ITCHING Last Admin: 09/27/17 21:50 Dose: 25 mg Fluocinonide (Lidex 0.05% Ointment -) 1 applic TP BID [facility] Last Admin: 09/29/17 10:43 Dose: 1 appful Gabapentin (Neurontin -) 300 mg PO TID [facility] Last Admin: 09/29/17 13:48 Dose: 300 mg Heparin Sodium (Porcine) (Heparin -) 5,000 unit SQ TID [facility] Last Admin: 09/29/17 13:48 Dose: 5,000 unit Hydralazine HCl (Apresoline -) 10 mg PO BID [facility] Last Admin: 09/29/17 10:40 Dose: 10 mg Insulin Aspart (Novolog Vial Sliding Scale -) 1 vial SQ ACHS [facility] PRN Reason: Protocol Last Admin: 09/29/17 12:12 Dose: Not Given Loratadine (Claritin -) 10 mg PO DAILY [facility] Last Admin: 09/29/17 10:40 Dose: 10 mg Metoprolol Succinate (Toprol Xl -) 100 mg PO BID [facility] Last Admin: 09/29/17 10:40 Dose: 100 mg Mupirocin (Bactroban 2% Ointment -) 1 applic TP BID [facility] Last Admin: 09/29/17 10:41 Dose: 1 appful Nystatin (Nystatin Oral Suspension -) 500,000 units PO Q6HPO [facility] Last Admin: 09/29/17 13:48 Dose: 500,000 units Phenobarbital (Phenobarbital -) 90 mg PO BID [facility] Last Admin: 09/29/17 10:41 Dose: 90 mg Potassium Chloride (K-Dur -) 40 meq PO DAILY [facility] Last Admin: 09/29/17 10:40 Dose: 40 meq Prednisone (Deltasone -) 10 mg PO DAILY [facility] Last Admin: 09/29/17 10:40 Dose: 10 mg - Objective Vital Signs: Vital Signs Temperature 97.5 F L 09/29/17 13:44 Pulse Rate 79 09/29/17 13:44 Respiratory Rate 18 09/29/17 13:44 Blood Pressure 144/71 09/29/17 13:44 O2 Sat by Pulse Oximetry (%) 97 09/28/17 21:00 Constitutional: Yes: Calm Eyes: Yes: Conjunctiva Clear HENT: Yes: Atraumatic Neck: Yes: Supple Cardiovascular: Yes: S1, S2 Respiratory: Yes: CTA Bilaterally Gastrointestinal: Yes: Soft, Abdomen, Obese Genitourinary: Yes: WNL Musculoskeletal: Yes: WNL Edema: LLE: Trace, RLE: Trace Integumentary: Yes: Rash, Other (rash improving) Neurological: Yes: Oriented, Pre-Existing Deficit Labs: CBC, BMP 09/29/17 06:50 09/29/17 06:30 Problem List - Problems (1) Acute kidney injury Code(s): N17.9 - ACUTE KIDNEY FAILURE, UNSPECIFIED (2) Lactic acidosis Code(s): E87.2 - ACIDOSIS (3) Sepsis Code(s): A41.9 - SEPSIS, UNSPECIFIED ORGANISM (4) UTI (urinary tract infection) Code(s): N39.0 - URINARY TRACT INFECTION, SITE NOT SPECIFIED (5) Bariatric surgery status Code(s): Z98.84 - BARIATRIC SURGERY STATUS (6) Diabetes Code(s): E11.9 - TYPE 2 DIABETES MELLITUS WITHOUT COMPLICATIONS (7) Hyperlipidemia Code(s): E78.5 - HYPERLIPIDEMIA, UNSPECIFIED Qualifiers: Qualified Code(s): E78.2 - Mixed hyperlipidemia (8) Hypertension Code(s): I10 - ESSENTIAL (PRIMARY) HYPERTENSION Qualifiers: Qualified Code(s): I10 - Essential (primary) hypertension (9) Morbid (severe) obesity due to excess calories Code(s): E66.01 - MORBID (SEVERE) OBESITY DUE TO EXCESS CALORIES Assessment/Plan Current Medications Generic Name Dose Route Start Last Admin Trade Name Freq PRN Reason Stop Dose Admin Acetaminophen 650 mg 09/25/17 21:37 Tylenol - PO Q6H PRN FEVER Amlodipine Besylate 10 mg 09/26/17 10:00 09/29/17 10:40 Norvasc - PO 10 mg DAILY [facility] Administration Atorvastatin Calcium 40 mg 09/25/17 22:00 09/28/17 21:22 Lipitor - PO 40 mg HS [facility] Administration Diphenhydramine HCl 25 mg 09/25/17 21:37 09/27/17 21:50 Benadryl Injection - IVPUSH 25 mg Q6H PRN Administration FOR ITCHING Fluocinonide 1 applic 09/25/17 14:49 09/29/17 10:43 Lidex 0.05% Ointment - TP 1 appful BID [facility] Administration Gabapentin 300 mg 09/25/17 22:00 09/29/17 13:48 Neurontin - PO 300 mg TID [facility] Administration Heparin Sodium (Porcine) 5,000 unit 09/25/17 22:00 09/29/17 13:48 Heparin - SQ 5,000 unit TID [facility] Administration Hydralazine HCl 10 mg 09/27/17 10:00 09/29/17 10:40 Apresoline - PO 10 mg BID [facility] Administration Insulin Aspart 1 vial 09/25/17 22:00 09/29/17 12:12 Novolog Vial Sliding Scale - SQ Not Given ACHS [facility] Protocol Loratadine 10 mg 09/26/17 10:00 09/29/17 10:40 Claritin - PO 10 mg DAILY [facility] Administration Metoprolol Succinate 100 mg 09/25/17 22:00 09/29/17 10:40 Toprol Xl - PO 100 mg BID [facility] Administration Mupirocin 1 applic 09/25/17 22:00 09/29/17 10:41 Bactroban 2% Ointment - TP 1 appful BID [facility] Administration Nystatin 500,000 units 09/26/17 00:00 09/29/17 13:48 Nystatin Oral Suspension - PO 500,000 units Q6HPO [facility] Administration Phenobarbital 90 mg 09/25/17 22:00 09/29/17 10:41 Phenobarbital - PO 90 mg BID [facility] Administration Potassium Chloride 40 meq 09/28/17 10:45 09/29/17 10:40 K-Dur - PO 40 meq DAILY [facility] Administration Prednisone 10 mg 09/29/17 10:00 09/29/17 10:40 Deltasone - PO 10 mg DAILY [facility] Administration Laboratory Tests 09/22/17 09/22/17 08:10 08:10 BEBA M-Isaac Not observed YOLI Screen Negative c-ANCA <1:20 Proteinase 3 (PR3) <3.5 p-ANCA <1:20 Atypical p-ANCA <1:20 Myeloperoxidase Ab <9.0 Double Strand DNA Ab <1 Glomerular Base Memb Ab 3 Impression 1. BELEM 2. CKD 3. sepsis 4. hypotension 5. rash 6. possible drug reaction 7. obesity 8. DM 9. hx htn 10. lactic acidosis 11. prolonged qt Plan - renal function is stabilizing - will see pt in office - serologies noted - avoid nsaids - avoid nephrotoxins
== END 2017-09-29 16:35 | disposition home or self-care (01) | DRG 720 ==
LOC: JER 19:09 → JERBED 09-18 01:34 → J4S 09-18 20:10 → OBSVTOIN 09-21 17:09 → JICU 09-22 16:57 → J7W 09-25 21:34
PROVIDERS: ADMIT Internal Medicine; ATTEND Nurse Practitioner Family
DX: A41.9 Sepsis, unspecified organism (principal); N39.0 Urinary tract infection, site not specified; N17.9 Acute kidney failure, unspecified; E87.2 Acidosis; E66.01 Morbid (severe) obesity due to excess calories; Z68.36 Body mass index [BMI] 36.0-36.9, adult; E11.9 Type 2 diabetes mellitus without complications; E78.5 Hyperlipidemia, unspecified; G40.909 Epilepsy, unspecified, not intractable, without status epilepticus; D72.829 Elevated white blood cell count, unspecified; L27.0 Generalized skin eruption due to drugs and medicaments taken internally; I12.9 Hypertensive chronic kidney disease with stage 1 through stage 4 chronic kidney disease, or unspecified chronic kidney disease; E11.22 Type 2 diabetes mellitus with diabetic chronic kidney disease; N18.9 Chronic kidney disease, unspecified; B96.20 Unspecified Escherichia coli [E. coli] as the cause of diseases classified elsewhere; E83.42 Hypomagnesemia; E83.39 Other disorders of phosphorus metabolism; R11.2 Nausea with vomiting, unspecified; I95.9 Hypotension, unspecified; D69.6 Thrombocytopenia, unspecified; R42 Dizziness and giddiness
CPT/HCPCS: 36415; 70450-TC; 71045-TC-FY; 74018-TC-FY; 74176-TC; 76705-TC; 76775-TC; 80048; 80053; 80061; 81003; 81015; 82009; 82248; 82436; 82550; 82553; 82570; 82962; 83036; 83516; 83520; 83605; 83690; 83721; 83735; 84100; 84133; 84155; 84165; 84300; 84484; 85025; 85027; 86038; 86225; 86256; 86704; 86706; 86708; 87040; 87086; 87186; 87205; 87340; 87522; 93005; 93010; 93306-TC; 97116-GP; 97162-GP; 99283-25; G0378; G0480; J0131; J1644; J7030